=== PATIENT | female | born 1955 | race Caucasian/White ===

== ENCOUNTER 2020-03-14 10:57 | Outpatient (RCR) | payer MEDICARE, SELFPAY | END 2020-03-26 14:24 | disposition other institution (70) | LOC: HO.PT 10:57 | PROVIDERS: PCP Internal Medicine; Visit Provider Internal Medicine | DX: M53.3 Sacrococcygeal disorders, not elsewhere classified (principal) | CPT/HCPCS: 97110; 97530 ==

== ENCOUNTER 2020-03-26 11:44 | Outpatient (REF) | payer MEDICARE, SELFPAY ==
[2020-03-26 12:38] LABS: MANUAL DIFF FLAG NO
[2020-03-26 12:43] LABS: Basophils Absolute Auto 0.1 X10*3/uL (0.0-0.2); Basophils Percent Auto 0.5 % (0-2); Eosinophils Absolute Auto 0.1 X10*3/uL (0.0-0.4); Eosinophils Percent Auto 1.2 % (0-4); Hemoglobin 15.3 g/dl (12.0-16.0); Imm Gran Abs Auto 0.05 X10*3/uL (0.00-0.03); Imm Gran Pct Auto 0.5 % (0.0-0.4); Lymphocytes Percent Auto 21.5 % (20-40); Mean Corpuscular HGB Conc 33.3 g/dl (31.0-35.0); Mean Corpuscular Hemoglobin 30.3 pg (27.0-33.0); Mean Corpuscular Volume 91.1 fL (80-98); Mean Platelet Volume 10.9 fL (9.4-12.3); Monocytes Absolute Auto 0.8 X10*3/uL (0.1-1.2); Monocytes Percent Auto 8.7 % (2-11); Neutrophils Absolute Auto 6.4 X10*3/uL (2.0-8.3); Neutrophils Percent Auto 67.6 % (45-73); Platelet Count 246 X10*3/uL (160-400); Red Blood Count 5.05 X10*6/uL (4.20-5.50); Red Cell Distribution Width 13.2 % (11.0-16.0); White Blood Count 9.4 X10*3/uL (4.8-10.8)
[2020-03-26 12:57] LABS: Glucose Urine UA NEG (NEG); Leukocyte Esterase Urine NEG (NEG); Nitrite Urine NEG (NEG); Urine Blood NEG (NEG); Urine Ketones NEG (NEG); Urine Protein TRACE MG/DL (NEG-TRACE)
[2020-03-26 13:00] LABS: Appearance Urine CLEAR; Color Urine YELLOW; UACC Culture Trigger NO
[2020-03-26 13:16] LABS: Alanine Aminotransferase 34 U/L (0-31); Albumin Level 4.3 g/dL (3.5-5.0); Alkaline Phosphatase 62 U/L (39-117); Anion Gap 15 (12-20); Aspartate Amino Transferase 22 U/L (5-31); Bilirubin Total 0.9 mg/dL (0.0-1.0); Blood Urea Nitrogen 15 mg/dL (9-16); C Reactive Protein 13.52 mg/dL (< or = 0.50); Calcium 9.6 mg/dL (8.4-10.2); Carbon Dioxide 28 mmol/L (22-29); Chloride 101 mmol/L (96-108); Estimated Glomerular Filt Rate > 60; Glucose Random 101 mg/dL (60-115); Potassium 4.9 mmol/l (3.3-5.1); Sodium 139 mmol/L (135-145); Total Protein 7.1 g/dL (6.5-8.0)
== END 2020-03-26 11:45 | disposition home or self-care (01) ==
LOC: HO.LAB 11:44
PROVIDERS: PCP Internal Medicine; Visit Provider Internal Medicine
DX: K57.90 Diverticulosis of intestine, part unspecified, without perforation or abscess without bleeding (principal); R30.0 Dysuria
CPT/HCPCS: 36415; 80053; 81003; 82550; 85025; 86140; 87086

== ENCOUNTER 2020-03-28 07:33 | Outpatient (REF) | payer MEDICARE, SELFPAY ==
--- NOTE | 2020-03-28 07:37 | CT_ITS ---
EXAMINATION: CT ABDOMEN AND PELVIS WITHOUT CONTRAST CLINICAL INFORMATION: Abdominal pain, elevated CRP. COMPARISON: CT abdomen and pelvis 01/11/2020 TECHNIQUE: Multidetector volumetric imaging was performed from the superior aspect of the liver through the pubic symphysis. Sagittal and coronal reformatted images were obtained on the technologist's workstation. This CT examination was performed using dose optimization techniques as appropriate, variously including the following: *Automated exposure control *Adjustment of mA and/or kV according to patient size (this includes techniques or standardized protocols for targeted exams where dose is matched to indication/reason for exam; i.e. extremities or head) *Use of iterative reconstruction technique DLP: 903 mGy-cm FINDINGS: LUNG BASES: There is minimal atelectatic changes in the lingula. The heart size is normal. There are pacing electrodes in the right atrium and right ventricle. LIVER, GALLBLADDER AND BILIARY TREE: The liver is normal in size, shape and attenuation. No focal hepatic lesion or biliary ductal dilatation is present. The gallbladder has been surgically removed. There is no proximal bowel obstruction. PANCREAS: Unremarkable. SPLEEN: Unremarkable. ADRENAL GLANDS: Unremarkable. KIDNEYS AND URETERS: The kidneys are normal in size, shape and attenuation. A 2 mm nonobstructive calculi is seen in lower pole right kidney. No additional radiopaque calculi, caliectasis or hydronephrosis seen. No perinephric stranding. There is an exophytic cyst upper pole left kidney measuring 2.7 x 3.2 cm. A 1.2 cm cortical cyst lower pole right kidney is noted. BLADDER: Unremarkable. GASTROINTESTINAL TRACT: There is scattered sigmoid and rest of colon diverticulosis with mild pericolic fat stranding around the sigmoid colon suggestive of diverticulitis. There is minimal mural thickening of the sigmoid colon. There is no drainable abscess or free air. There is no free fluid. The small bowel loops are normal caliber. Appendix is not visualized ABDOMINAL WALL: No significant hernia is appreciated. LYMPH NODES: Normal. VASCULAR: Unremarkable. PELVIC VISCERA: The uterus is anteverted and appears unremarkable. There is no free air or free fluid. OSSEOUS STRUCTURES: There is mild ventral spondylosis lower dorsal spine and lumbar spine. No lytic or sclerotic process seen. IMPRESSION: Scattered colonic diverticulosis with sigmoid diverticulitis. No drainable abscess, free air or bowel obstruction. Punctate nonobstructive 2 mm radiopaque calculi lower pole right kidney and bilateral renal cysts.
== END 2020-03-28 07:34 | disposition home or self-care (01) ==
LOC: HO.CT 07:33
PROVIDERS: PCP Internal Medicine; Visit Provider Internal Medicine
DX: R79.82 Elevated C-reactive protein (CRP) (principal); R10.9 Unspecified abdominal pain
CPT/HCPCS: 74176

== ENCOUNTER 2020-04-24 17:13 | Outpatient (REF) | payer MEDICARE, SELFPAY ==
[2020-04-24 17:53] LABS: MANUAL DIFF FLAG NO
[2020-04-24 18:03] LABS: Basophils Absolute Auto 0.1 X10*3/uL (0.0-0.2); Basophils Percent Auto 0.7 % (0-2); Eosinophils Absolute Auto 0.1 X10*3/uL (0.0-0.4); Eosinophils Percent Auto 1.6 % (0-4); Hematocrit 44.6 % (37-47); Hemoglobin 14.7 g/dl (12.0-16.0); Imm Gran Abs Auto 0.04 X10*3/uL (0.00-0.03); Imm Gran Pct Auto 0.5 % (0.0-0.4); Lymphocytes Absolute Auto 2.1 X10*3/uL (1.2-4.9); Lymphocytes Percent Auto 27.6 % (20-40); Mean Corpuscular Hemoglobin 29.6 pg (27.0-33.0); Mean Corpuscular Volume 89.9 fL (80-98); Mean Platelet Volume 10.7 fL (9.4-12.3); Monocytes Absolute Auto 0.7 X10*3/uL (0.1-1.2); Monocytes Percent Auto 8.9 % (2-11); Neutrophils Absolute Auto 4.6 X10*3/uL (2.0-8.3); Neutrophils Percent Auto 60.7 % (45-73); Platelet Count 232 X10*3/uL (160-400); Red Blood Count 4.96 X10*6/uL (4.20-5.50); Red Cell Distribution Width 13.2 % (11.0-16.0); White Blood Count 7.5 X10*3/uL (4.8-10.8)
[2020-04-24 18:06] LABS: Glucose Urine UA NEG (NEG); Leukocyte Esterase Urine TRACE (NEG); Nitrite Urine NEG (NEG); Urine Blood NEG (NEG); Urine Ketones NEG (NEG); Urine Protein NEG (NEG-TRACE)
[2020-04-24 18:09] LABS: Appearance Urine CLEAR; Color Urine YELLOW
[2020-04-24 18:22] LABS: Bacteria Urine 1+ /LPF; RBC Urine 0 /HPF (0); Squamous Epithelial Cell Urine 1+ /LPF; WBC Urine 0-2 /HPF (0-4)
[2020-04-24 18:23] LABS: Alanine Aminotransferase 57 U/L (0-31); Albumin Level 4.5 g/dL (3.5-5.0); Alkaline Phosphatase 57 U/L (39-117); Anion Gap 13 (12-20); Aspartate Amino Transferase 44 U/L (5-31); Blood Urea Nitrogen 17 mg/dL (9-16); C Reactive Protein 0.28 mg/dL (< or = 0.50); Calcium 9.6 mg/dL (8.4-10.2); Carbon Dioxide 28 mmol/L (22-29); Chloride 102 mmol/L (96-108); Estimated Glomerular Filt Rate > 60; Glucose Random 86 mg/dL (60-115); Potassium 4.3 mmol/l (3.3-5.1); Sodium 139 mmol/L (135-145)
== END 2020-04-24 17:14 | disposition home or self-care (01) ==
LOC: HO.LAB 17:13
PROVIDERS: Visit Provider Internal Medicine
DX: R10.9 Unspecified abdominal pain (principal); I10 Essential (primary) hypertension
CPT/HCPCS: 36415; 80053; 81001; 85025; 86140; 87086

== ENCOUNTER → 2020-09-04 10:27 | Outpatient (BNVA) | payer MEDICARE, SELFPAY | PROVIDERS: PCP Internal Medicine; Visit Provider Internal Medicine Cardiovascular Disease | DX: Z45.018 Encounter for adjustment and management of other part of cardiac pacemaker (principal); R42 Dizziness and giddiness; I10 Essential (primary) hypertension; Z79.899 Other long term (current) drug therapy | CPT/HCPCS: 93280; 99212 ==

== ENCOUNTER → 2020-09-11 09:27 | Outpatient (REF) | payer MEDICARE, SELFPAY ==
--- NOTE | 2020-09-11 09:30 | CA_ITS ---
Transthoracic Echocardiogram Patient (Last, First, Middle): Ruby Moses, Gender: Female Date of : 1955 Age: 65 Procedure Date: 09/11/2020 Procedure Type: Transthoracic Echocardiogram Location: OP Height: 165.1 cm Weight: 95.26 kg BSA: 2.02 m2 Heart Rate: bpm BP: 130 / 80 mmHg Solar Design Engineer: JOSSY Jackson MD: Og Lacy MD Telecommunications Line Mechanic: Og Lacy MD Symptoms: I10 - Essential (primary) hypertension Study Quality: Fair ECG Rhythm: Ventriculary paced rhythm Conclusions: - 1. Normal LV systolic function grade 1 diastolic dysfunction 2. Normal cardiac valvular Doppler 3. Normal RV systolic pressure 4. No pericardial effusion Findings Left Ventricle Normal left ventricular size, thickness, and systolic function. The visually estimated ejection fraction is between 55-60%. There is paradoxical septal motion consistent with a right ventricular pacemaker. Spectral Doppler is indicative of an impaired relaxation filling pattern. E/E prime ratio is <8, consistent with normal filling pressures. Evidence suggests grade I (mild) diastolic dysfunction. Right Ventricle Normal right ventricular cavity size and systolic function. There is a pacemaker wire seen in the right ventricle. Atria The left atrium is likely dilated. Interatrial shunt cannot be excluded. The right atrium is normal in size. A pacemaker wire is identified in the right atrium. Aortic Valve Normal aortic valve structure and function. There is no aortic valve stenosis. There is no aortic valve regurgitation. Mitral Valve There is mild anterior and posterior mitral leaflet thickening. There is trace mitral valve regurgitation. There is no mitral valve stenosis. Pulmonic Valve The pulmonic valve is likely normal. There is trace pulmonic valve regurgitation. Tricuspid Valve Normal tricuspid valve structure. There is mild tricuspid valve regurgitation. The right ventricular systolic pressure is normal. The right ventricular systolic pressure is 23 mmHg. Normal right atrial pressure. There is no evidence of pulmonary hypertension. Great Vessels All visible segments of the aorta are normal in size. The pulmonary artery was not well visualized. Venous The inferior vena cava is normal in size and collapses greater than 50% with inspiration. Pericardium/Pleural There is no evidence of pericardial effusion. Prior Study Comparison No significant change compared to prior study dated: 08/18/2018. Measurements M-Mode Liner Measurements Normals - Women/Men AOV Cusps: 2.00 1.5-2.6 cm/m2 2D Linear Measurements IVSd: 1.06 0.6-0.9/0.6-1.0 cm LVIDd: 3.54 3.9-5.3/4.2-5.9 cm LVIDd Index: 1.75 2.4-3.2/2.2-3.1 cm/m2 LVIDs: 2.64 2.0-3.6 cm LVPWd: 1.05 0.7-1.1 cm Ao Root: 2.40 2.1-3.5 cm LA Diam: 2.90 2.7-3.8/3.0-4.0 cm LAIDs Index: 1.44 1.5-2.3 cm/m2 LV Mass: 141.44 67-162/88-224 g LV Mass Index: 70.02 43-95/49-115 g/m2 LVOT Diam: 2.30 3.0+(-)1.3 cm 2D Systolic Function EF 4C: 63.00 >55% EF 2C: 47.00 >55% EF BiP: 54.80 >55% Mitral Valve MV Pk E: 0.50 MV PK A: 0.92 MV Decel Time: 267.00 E/A: 0.50 E'Lateral: 6.20 E'Medial: 3.81 E/E' Med: 13.20 E/E' Lat: 8.10 PHT: 78.00 MVA PHT: 2.82 Decel Hardeman: 1.88 Aortic Valve AoV Pk Juan Manuel: 1.41 AoV Mn Juan Manuel: 1.06 AoV VTI: 0.31 AoV Pk Grad: 8.00 Aov Mn Grad: 5.00 MULUGETA Cont.VTI: 2.88 LVOT LVOT Pk Juan Manuel: 1.05 LVOT Mn Juan Manuel: 0.71 LVOT VTI: 0.21 LVOT Pk Grad: 4.00 LVOT Mn Grad: 2.00 LVOT Diam: 2.30 LVOT Area: 4.15 Diastolic Function MV Pk E: 0.50 MV Pk A: 0.92 E/A: 0.50 E'Medial: 3.81 E/E' Med: 13.20 E' Laterial: 6.20 E/E' Lat: 8.10 Tricuspid Valve TR Pk Juan Manuel: 2.24 TR Pk Grad: 20.00 RA Press: 3.00 RVSP: 23.00 Great Vessels Aorta Ao Root-2D: 2.40 2.0-3.7 cm Ao Asc: 3.40 2.1-3.4 cm Ao Arch: 2.80 Pulmonary Valve PV Pk Juan Manuel: 0.92 Peak PV Grad: 3.00 Updated in Other Vendor System with Status of Final Og Lacy MD electronically signed on 09/11/2020 12:07:26 PM with status of Final
== END ==
LOC: HO.CARD 09:27
PROVIDERS: Visit Provider Internal Medicine Cardiovascular Disease
DX: I10 Essential (primary) hypertension (principal); R42 Dizziness and giddiness; Z95.0 Presence of cardiac pacemaker
CPT/HCPCS: 93306

== ENCOUNTER 2020-10-03 16:20 | Outpatient (REF) | payer MEDICARE, SELFPAY ==
--- NOTE | ~2020-10-03 | US_ITS ---
EXAMINATION: US RETROPERITONEAL LIMITED (RENAL ONLY) CLINICAL INFORMATION: Malignant neoplasm of unspecified kidney. COMPARISON: CT abdomen and pelvis 03/28/2020. Ultrasound abdomen complete 03/17/2019. TECHNIQUE: Real-time imaging of the kidneys. FINDINGS: RIGHT KIDNEY: 10.4 x 5.5 x 4.6 cm (SAG x AP x TRV). The kidney is normal in size, contour, and echogenicity. Renal cortical thickness is normal. There are multiple right renal cyst. There is a 9 x 7 x 8 mm simple cyst in the midpole. There is a 9 x 12 x 8 mm slightly complex cyst with single septation in the upper pole. There is an 8 x 10 x 8 mm simple cyst in the midpole. There is a 12 x 8 x 7 mm complex cyst with single septation in the lower pole. No renal calculi or mass or hydronephrosis. LEFT KIDNEY: 11.8 x 5.2 x 5.7 cm (SAG x AP x TRV). The kidney is normal in size, contour, and echogenicity. Renal cortical thickness is normal. There are 2 left renal cysts. There is a 1.2 x 1.4 x 1.4 cm cyst in the upper pole. There is an adjacent 3.3 x 3 x 3.1 cm slightly complex cyst with single septation in the upper pole. No renal calculi, mass or hydronephrosis. US/US renal BI IMPRESSION: Bilateral renal cysts. No renal mass seen.
== END 2020-10-03 16:21 | disposition home or self-care (01) ==
LOC: HO.US 16:20
PROVIDERS: PCP Internal Medicine; Visit Provider Urology
DX: C64.9 Malignant neoplasm of unspecified kidney, except renal pelvis (principal)
CPT/HCPCS: 76775

== ENCOUNTER → 2020-10-31 09:49 | Outpatient (BNVA) | payer MEDICARE, SELFPAY | PROVIDERS: PCP Internal Medicine; Visit Provider Urology | DX: C64.9 Malignant neoplasm of unspecified kidney, except renal pelvis (principal) | CPT/HCPCS: Q3014 ==

== ENCOUNTER 2020-12-19 07:16 | Day surgery (SDC) | payer MEDICARE, SELFPAY ==
[2020-12-14 13:49] VITALS: BMI 35.2
--- NOTE | 2020-12-18 09:34 | HO.ANESPROP2 ---
Documented by User: Leslye Ndiaye 12/18/20 09:36 HPI - Anesthesia Eval Consult details Narrative: 65yo F for Upper Endoscopy and Colonoscopy Pacer in situ for CHB PMFSH Active Problems Active Problems: All Active Problems (Updated 12/14/20 @ 13:54 by Carolina Redman) Lightheadedness (Acute) Renal carcinoma (Acute) HTN (hypertension) (Acute) Cardiac pacemaker in situ (Acute) Past Medical History Medical History Arthritis Cardiac pacemaker in situ Complete heart block GERD (gastroesophageal reflux disease) Hiatal hernia History of diverticulitis HTN (hypertension) Family History Family History Father No problems noted. Mother No problems noted. Surgical History Surgical History History of esophagogastroduodenoscopy (EGD) History of excision of Zenker's diverticulum History of kidney surgery History of permanent cardiac pacemaker placement Hx of appendectomy Hx of blepharoplasty Hx of cardiac cath Hx of cholecystectomy Hx of colonoscopy Social History Social History Patient Tobacco Use Status: Never used Tobacco Use of substances other than those prescribed or required for medical reasons: No Are you DNR?: No Advance Directives: No Advance Directives Information Provided: Yes Advance Directives Date on File: 03/14/20 Meds Allergies Allergy/AdvReac Type Severity Reaction Status Date / Time adhesive tape [Adhesive Tape] Allergy Intermediate RASH/BLISTE Verified 12/19/20 07:30 RS doxycycline [Doxycycline] Allergy Intermediate RASH/ITCH Verified 12/19/20 07:30 Statins Support Allergy Intermediate leg Uncoded 12/19/20 07:30 cramping Home Medications Medication Instructions Recorded Confirmed Last Taken Type aspirin 81 mg tablet,delayed 81 mg PO DAILY 09/04/20 12/14/20 12/12/20 14:00 History release atenolol 100 mg tablet 100 mg PO DAILY 09/04/20 12/14/20 12/19/20 06:30 History cholecalciferol (vitamin D3) 25 25 mcg PO DAILY 09/04/20 12/14/20 Unknown History mcg (1,000 unit) capsule lisinopril 20 mg tablet 20 mg PO DAILY 09/04/20 12/14/20 12/19/20 06:30 History omeprazole 20 mg capsule,delayed 20 mg PO DAILY 09/04/20 12/14/20 Unknown History release vitamin B complex 1 tab PO DAILY 09/04/20 12/14/20 Unknown History Exam Exam Date and Time: December 18, 2020 0934 Height,Weight and Vital Signs: Height 5 ft 5.5 in Weight 97.522 kg Narrative Narrative: Echo 09/2020 Conclusions: - 1. Normal LV systolic function grade 1 diastolic dysfunction 2. Normal cardiac valvular Doppler 3. Normal RV systolic pressure 4. No pericardial effusion Pacer Interr 08/2020 Dual-chamber Medtronic pacemaker in place. Programmed in DDDR at 60 beats per minute. Atrial pacing 51% of the time. Ventricular pacing 100% of the time. Atrial pacing thresholds excellent and reprogrammed to enhance battery life. Ventricular pacing thresholds are adequate and reprogrammed to provide adequate safety. Pacing lead impedance is stable. Battery life is at about 3 and half years Assessment and Plan Assessment Anesthesia Assessment: Chart Reviewed Documented by User: Grady Buchanan 12/19/20 09:00 [facility] Past Medical History Medical History Arthritis Cardiac pacemaker in situ Complete heart block GERD (gastroesophageal reflux disease) Hiatal hernia History of diverticulitis HTN (hypertension) Family History Family History Father No problems noted. Mother No problems noted. Surgical History Surgical History History of esophagogastroduodenoscopy (EGD) History of excision of Zenker's diverticulum History of kidney surgery History of permanent cardiac pacemaker placement Hx of appendectomy Hx of blepharoplasty Hx of cardiac cath Hx of cholecystectomy Hx of colonoscopy Social History Social History Patient Tobacco Use Status: Never used Tobacco Use of substances other than those prescribed or required for medical reasons: No Are you DNR?: No Advance Directives: No Advance Directives Information Provided: Yes Advance Directives Date on File: 03/14/20 Meds Allergies Allergy/AdvReac Type Severity Reaction Status Date / Time adhesive tape [Adhesive Tape] Allergy Intermediate RASH/BLISTE Verified 12/19/20 07:30 RS doxycycline [Doxycycline] Allergy Intermediate RASH/ITCH Verified 12/19/20 07:30 Statins Support Allergy Intermediate leg Uncoded 12/19/20 07:30 cramping Home Medications Medication Instructions Recorded Confirmed Last Taken Type aspirin 81 mg tablet,delayed 81 mg PO DAILY 09/04/20 12/14/20 12/12/20 14:00 History release atenolol 100 mg tablet 100 mg PO DAILY 09/04/20 12/14/20 12/19/20 06:30 History cholecalciferol (vitamin D3) 25 25 mcg PO DAILY 09/04/20 12/14/20 Unknown History mcg (1,000 unit) capsule lisinopril 20 mg tablet 20 mg PO DAILY 09/04/20 12/14/20 12/19/20 06:30 History omeprazole 20 mg capsule,delayed 20 mg PO DAILY 09/04/20 12/14/20 Unknown History release vitamin B complex 1 tab PO DAILY 09/04/20 12/14/20 Unknown History Exam Airway Mallampati Class: III TM Dist: >3cm Neck ROM: Full Loose/Missing/Broken Teeth: No Heart: [id number] Lungs: cta b/l Assessment and Plan Assessment Anesthesia Assessment: Anesthesia Plan Discussed, PAT Visit and Chart Reviewed Final Anesthetic Review NPO: Yes ASA Class: III Final Preanesthetic Review: No Changes in Pt Med Stat, Meds/Allgs Chart Reviewed, Consent Obtained/Reviewed and Anes Risks/Benef Reviewed Patient Risk: Intermediate Procedure Risk: Low Assessment/Block/Sedation in SS: Assess/Block/Sedation-SS Anesthetic Plan Anesthetic Plan: MAC: and Agree w/ Assess. and Plan Disposition: Standard PACU
[2020-12-19 07:49] VITALS: BP 144/93; PULSE 70; RESP 18; TEMP 36.1; O2SAT 96
[2020-12-19] MEDS: Lactated Ringers 1,000 ML 100 ML IVCONT (08:06)
[2020-12-19 09:55] VITALS: BP 110/77; PULSE 69; RESP 14; TEMP 36.2; O2SAT 98
--- NOTE | 2020-12-19 09:58 | PM.OP ---
Brief Operative Note Date of Service: 12/19/20 Pre-op diagnosis: GERD, Screening Post-op diagnosis: other (Hiatal hernia, Diverticulosis) Procedure: EGD, Colonoscopy to the cecum Surgeon: Vito Maldonado Anesthesia: MAC Was an Outpatient Physical Therapist Assistant used for this Procedure?: No Estimated blood loss (mL): 0 Pathology: none sent Condition: stable Disposition: PACU
[2020-12-19 10:10] VITALS: BP 133/78; PULSE 65; RESP 16; TEMP 36.2; O2SAT 98
--- NOTE | 2020-12-19 10:22 | OP_ITS ---
SURGEON: Vito Maldonado MD INDICATIONS: The patient presents for evaluation of gastroesophageal reflux, personal history of tubular adenoma of the colon, and colorectal cancer screening. Full consent has been obtained from her for this, including risks of bleeding and perforation. PREOPERATIVE DIAGNOSIS: POSTOPERATIVE DIAGNOSIS: PROCEDURE PERFORMED: Esophagogastroduodenoscopy, and colonoscopy to cecum. ESTIMATED BLOOD LOSS: COMPLICATIONS: ANESTHESIA: Monitored anesthesia care. ASSISTANTS: SPECIMENS: PREOPERATIVE DIAGNOSES: Gastroesophageal reflux, personal history of tubular adenoma of the colon, and colorectal cancer screening. POSTOPERATIVE DIAGNOSES: Gastroesophageal reflux, personal history of tubular adenoma of the colon, and colorectal cancer screening, small hiatal hernia, sigmoid diverticulosis, internal hemorrhoids. DESCRIPTION OF PROCEDURE: The patient was placed in the left lateral decubitus position. The Olympus video gastroscope was passed in the posterior oropharynx and upper esophagus under direct vision. The scope was passed slowly into the distal esophagus. The gastroesophageal junction appeared normal at 38 cm. There was no sign of any esophagitis, Fletcher's esophagus, nor stricture. The scope entered into the stomach. There was a small hiatal hernia. The scope was advanced to the pylorus and the duodenum was cannulated to the descending portion. The duodenum including the bulb appeared normal without mass or ulceration. The scope was withdrawn back into the stomach. The gastric antrum and body appeared normal with good peristalsis. The scope was retroflexed visualizing the proximal stomach carefully which appeared normal, without any sign of mass or ulceration. Scope was straightened out and withdrawn back into the esophagus. The esophageal mucosa appeared normal. The scope was withdrawn from the patient. She was turned around for colonoscopy. The digital rectal exam revealed no abnormalities. The Olympus video pediatric colonoscope was entered into the rectum and advanced to the cecum. Once in the cecum, I did identify normal-appearing cecal pouch with appendiceal orifice and a normal-appearing ileocecal valve. There was transillumination of light deep in the right lower quadrant. The entire cecum and ileocecal valve appeared normal. The scope was slowly withdrawn assessing all mucosal surfaces carefully. Preparation was excellent. I did not visualize any sign of polyps, colitis, nor angiodysplasia. There was a mild amount of sigmoid diverticulosis. In the rectum, scope was retroflexed visualizing internal hemorrhoids, but no other pathology. The rectal mucosa appeared normal. The scope was straightened out and withdrawn from the patient. She tolerated both procedures well and was returned to recovery area in stable condition. IMPRESSION: 1. Small hiatal hernia, otherwise normal upper endoscopy. 2. Mild sigmoid diverticulosis. 3. Internal hemorrhoids. PLAN: The patient should have a repeat colonoscopy in 5 years for further screening. She will continue her omeprazole once or twice a day for symptomatic relief of reflux. She will otherwise see me on a p.r.n. basis. She was advised to resume her aspirin today. MD JOYCE Mcelroy/TASIA / [phone]
== END 2020-12-19 10:33 | disposition home or self-care (01) ==
PROVIDERS: PCP Internal Medicine; Visit Provider Internal Medicine
PROC: (CPT 43235; principal; 2020-12-19 08:30)
DX: Z12.11 Encounter for screening for malignant neoplasm of colon (principal); Z86.010 Personal history of colon polyps; K57.30 Diverticulosis of large intestine without perforation or abscess without bleeding; K64.8 Other hemorrhoids; K21.9 Gastro-esophageal reflux disease without esophagitis; K44.9 Diaphragmatic hernia without obstruction or gangrene; I10 Essential (primary) hypertension; Z95.0 Presence of cardiac pacemaker; Z79.82 Long term (current) use of aspirin; Z79.899 Other long term (current) drug therapy; Z88.8 Allergy status to other drugs, medicaments and biological substances; Z87.19 Personal history of other diseases of the digestive system; Z90.49 Acquired absence of other specified parts of digestive tract
CPT/HCPCS: 43235; G0105; J2370

== ENCOUNTER 2021-01-21 10:22 | Outpatient (REF) | payer MEDICARE, SELFPAY ==
[2021-01-21 13:00] LABS: MANUAL DIFF FLAG NO
[2021-01-21 13:13] LABS: Basophils Absolute Auto 0.1 X10*3/uL (0.0-0.2); Basophils Percent Auto 0.8 % (0-2); Eosinophils Absolute Auto 0.1 X10*3/uL (0.0-0.4); Eosinophils Percent Auto 1.4 % (0-4); Hematocrit 45.3 % (37-47); Hemoglobin 14.8 g/dl (12.0-16.0); Imm Gran Abs Auto 0.03 X10*3/uL (0.00-0.03); Imm Gran Pct Auto 0.5 % (0.0-0.4); Lymphocytes Percent Auto 30.2 % (20-40); Mean Corpuscular HGB Conc 32.7 g/dl (31.0-35.0); Mean Corpuscular Hemoglobin 29.4 pg (27.0-33.0); Mean Corpuscular Volume 90.1 fL (80-98); Mean Platelet Volume 11.6 fL (9.4-12.3); Monocytes Absolute Auto 0.5 X10*3/uL (0.1-1.2); Monocytes Percent Auto 6.9 % (2-11); Neutrophils Percent Auto 60.2 % (45-73); Platelet Count 229 X10*3/uL (160-400); Red Blood Count 5.03 X10*6/uL (4.20-5.50); Red Cell Distribution Width 13.2 % (11.0-16.0); White Blood Count 6.6 X10*3/uL (4.8-10.8)
[2021-01-21 13:40] LABS: Alanine Aminotransferase 26 U/L (0-31); Albumin Level 4.3 g/dL (3.5-5.0); Alkaline Phosphatase 66 U/L (39-117); Anion Gap 17 (12-20); Aspartate Amino Transferase 18 U/L (5-31); Bilirubin Total 0.8 mg/dL (0.0-1.0); Blood Urea Nitrogen 24 mg/dL (9-16); Calcium 9.2 mg/dL (8.4-10.2); Carbon Dioxide 20 mmol/L (22-29); Chloride 107 mmol/L (96-108); Estimated Glomerular Filt Rate > 60; Glucose Random 135 mg/dL (60-115); Sodium 140 mmol/L (135-145); Total Protein 6.9 g/dL (6.5-8.0)
[2021-01-21 14:16] LABS: Glucose Urine UA NEG (NEG); Leukocyte Esterase Urine NEG (NEG); Nitrite Urine NEG (NEG); PH 5.5 (5.0-8.0); Specific Gravity - Urine >= 1.030 (1.005-1.025); Urine Blood NEG (NEG); Urine Ketones NEG (NEG); Urine Protein NEG (NEG-TRACE)
[2021-01-21 14:19] LABS: Appearance Urine TURBID; Color Urine YELLOW
== END 2021-01-21 10:23 | disposition home or self-care (01) ==
LOC: HO.10HDL 10:22
PROVIDERS: PCP Internal Medicine; Visit Provider Internal Medicine
DX: I10 Essential (primary) hypertension (principal); K21.9 Gastro-esophageal reflux disease without esophagitis; R30.0 Dysuria; R79.89 Other specified abnormal findings of blood chemistry
CPT/HCPCS: 36415; 80053; 81003; 85025; 87086

== ENCOUNTER → 2021-03-05 10:22 | Outpatient (BNVA) | payer MEDICARE, SELFPAY | PROVIDERS: PCP Internal Medicine; Visit Provider Internal Medicine Cardiovascular Disease | DX: Z45.018 Encounter for adjustment and management of other part of cardiac pacemaker (principal); I10 Essential (primary) hypertension | CPT/HCPCS: 93005; 99212 ==

== ENCOUNTER 2021-04-22 11:21 | Outpatient (REF) | payer MEDICARE, SELFPAY ==
[2021-04-22 13:46] LABS: MANUAL DIFF FLAG NO
[2021-04-22 13:54] LABS: Basophils Absolute Auto 0.1 X10*3/uL (0.0-0.2); Basophils Percent Auto 0.8 % (0-2); Eosinophils Absolute Auto 0.1 X10*3/uL (0.0-0.4); Hematocrit 45.3 % (37.0-47.0); Hemoglobin 14.7 g/dl (12.0-16.0); Imm Gran Abs Auto 0.03 X10*3/uL (0.00-0.03); Imm Gran Pct Auto 0.5 % (0.0-0.4); Lymphocytes Percent Auto 30.8 % (20-40); Mean Corpuscular HGB Conc 32.5 g/dl (31.0-35.0); Mean Corpuscular Hemoglobin 29.6 pg (27.0-33.0); Mean Corpuscular Volume 91.1 fL (80.0-98.0); Mean Platelet Volume 11.2 fL (9.4-12.3); Monocytes Absolute Auto 0.6 X10*3/uL (0.1-1.2); Monocytes Percent Auto 8.6 % (2-11); Neutrophils Absolute Auto 3.8 x10*3/uL (2.0-8.3); Neutrophils Percent Auto 57.3 % (45-73); Platelet Count 241 X10*3/uL (160-400); Red Blood Count 4.97 X10*6/uL (4.20-5.50); Red Cell Distribution Width 13.2 % (11.0-16.0); White Blood Count 6.6 X10*3/uL (4.8-10.8)
[2021-04-22 14:03] LABS: Estimated Average Glucose 114 mg/dL; Hemoglobin A1c % 5.6 %
[2021-04-22 14:08] LABS: Appearance Urine HAZY; Color Urine YELLOW; Glucose Urine UA NEG (NEG); Leukocyte Esterase Urine 1+ (NEG); Nitrite Urine NEG (NEG); PH 5.5 (5.0-8.0); Specific Gravity - Urine >= 1.030 (1.005-1.025); Urine Blood NEG (NEG); Urine Ketones NEG (NEG); Urine Protein NEG (NEG-TRACE)
[2021-04-22 14:17] LABS: Alanine Aminotransferase 29 U/L (0-31); Albumin Level 4.2 g/dL (3.5-5.0); Alkaline Phosphatase 52 U/L (39-117); Anion Gap 15 (12-20); Aspartate Amino Transferase 21 U/L (5-31); Bilirubin Total 1.2 mg/dL (0.0-1.0); Blood Urea Nitrogen 25 mg/dL (9-16); Carbon Dioxide 25 mmol/L (22-29); Chloride 106 mmol/L (96-108); Cholesterol 202 mg/dL; Estimated Glomerular Filt Rate > 60; Glucose Fasting 98 mg/dL (60-99); HDL Cholesterol 37 mg/dL; LDL Cholesterol Calculated 128 mg/dl; Potassium 4.3 mmol/L (3.3-5.1); Sodium 142 mmol/L (135-145); Total Protein 6.7 g/dL (6.5-8.0); Triglycerides 187 mg/dL
[2021-04-22 14:27] LABS: Creatinine Urine 211.58 mg/dL; Microalbum/Creatinine Ratio Ur 4.7 ug/mg cr
[2021-04-22 14:30] LABS: Bacteria Urine TRACE /LPF; RBC Urine 0-2 /HPF (0); Squamous Epithelial Cell Urine 2+ /LPF
[2021-04-22 14:38] LABS: Thyroid Stimulating Hormone 0.86 uIU/mL (0.32-4.0)
== END 2021-04-22 11:22 | disposition home or self-care (01) ==
LOC: HO.10HDL 11:21
PROVIDERS: Visit Provider Internal Medicine
DX: I10 Essential (primary) hypertension (principal); R73.03 Prediabetes; E78.00 Pure hypercholesterolemia, unspecified; K21.9 Gastro-esophageal reflux disease without esophagitis
CPT/HCPCS: 36415; 80053; 80061; 81001; 81003; 82043; 83036; 84443; 85025

== ENCOUNTER 2021-04-29 14:20 | Outpatient (REF) | payer MEDICARE, SELFPAY ==
--- NOTE | ~2021-04-29 | XR_ITS ---
EXAMINATION: XR ABDOMEN KUB CLINICAL INDICATION: C64.9 - Malignant neoplasm of unspecified kidney COMPARISON: Renal ultrasound 10/03/2020, CT abdomen 03/28/2020 TECHNIQUE: AP x3 views of the abdomen. FINDINGS: There is scattered gas in the bowel of normal caliber. Surgical clips right upper quadrant are consistent with prior cholecystectomy. There is a bipolar pacemaker. The lung bases are clear. There are no visible urinary tract calculi on plain film. There is spurring in the lumbar spine again noted. XR/XR KUB IMPRESSION: Unremarkable examination.
== END 2021-04-29 14:21 | disposition home or self-care (01) ==
LOC: HO.XRAY 14:20
PROVIDERS: PCP Internal Medicine; Visit Provider Urology
DX: C64.9 Malignant neoplasm of unspecified kidney, except renal pelvis (principal)
CPT/HCPCS: 74018

== ENCOUNTER → 2021-05-07 10:10 | Outpatient (BNVA) | payer MEDICARE, SELFPAY | PROVIDERS: PCP Internal Medicine; Visit Provider Urology | DX: Z13.89 Encounter for screening for other disorder (principal) | CPT/HCPCS: Q3014 ==

== ENCOUNTER 2021-08-06 09:46 | Outpatient (REF) | payer MEDICARE, SELFPAY ==
--- NOTE | ~2021-08-06 | XR_ITS ---
EXAMINATION: XR SHOULDER , LEFT CLINICAL INFORMATION: Pain COMPARISON: None available at the time of this dictation. TECHNIQUE: AP external rotation, Grashey, scapular Y, and axillary views of the shoulder. FINDINGS: BONES: There is no fracture or dislocation, no osteolytic or osteoblastic lesion. JOINTS: Glenohumeral joint is properly positioned. There is mild degenerative osteoarthritis of the acromioclavicular joint. SOFT TISSUE AND INCLUDED LUNG: Small soft tissue calcification around the humeral head suggesting possible calcific tendinosis. XR/XR shoulder LT min 2V IMPRESSION: Soft tissue calcifications superior to the humeral head suggesting calcific tendinosis. DJD AC joint.
[2021-08-06 11:00] LABS: MANUAL DIFF FLAG NO
[2021-08-06 11:51] LABS: Basophils Absolute Auto 0.1 X10*3/uL (0.0-0.2); Basophils Percent Auto 0.8 % (0-2); Eosinophils Absolute Auto 0.1 X10*3/uL (0.0-0.4); Eosinophils Percent Auto 1.1 % (0-4); Hematocrit 44.5 % (37.0-47.0); Hemoglobin 14.6 g/dl (12.0-16.0); Imm Gran Abs Auto 0.03 X10*3/uL (0.00-0.03); Imm Gran Pct Auto 0.4 % (0.0-0.4); Lymphocytes Absolute Auto 2.3 X10*3/uL (1.2-4.9); Mean Corpuscular HGB Conc 32.8 g/dl (31.0-35.0); Mean Corpuscular Hemoglobin 29.9 pg (27.0-33.0); Mean Corpuscular Volume 91.2 fL (80.0-98.0); Monocytes Absolute Auto 0.6 X10*3/uL (0.1-1.2); Monocytes Percent Auto 8.9 % (2-11); Neutrophils Absolute Auto 3.9 x10*3/uL (2.0-8.3); Neutrophils Percent Auto 55.8 % (45-73); Platelet Count 224 X10*3/uL (160-400); Red Blood Count 4.88 X10*6/uL (4.20-5.50); Red Cell Distribution Width 13.4 % (11.0-16.0); White Blood Count 7.1 X10*3/uL (4.8-10.8)
[2021-08-06 11:56] LABS: Estimated Average Glucose 120 mg/dL; Hemoglobin A1c % 5.8 %
[2021-08-06 12:49] LABS: Alanine Aminotransferase 40 U/L (0-31); Albumin Level 4.3 g/dL (3.5-5.0); Alkaline Phosphatase 52 U/L (39-117); Anion Gap 13 (12-20); Aspartate Amino Transferase 25 U/L (5-31); Bilirubin Total 1.1 mg/dL (0.0-1.0); Blood Urea Nitrogen 27 mg/dL (9-16); Calcium 9.9 mg/dL (8.4-10.2); Carbon Dioxide 27 mmol/L (22-29); Chloride 104 mmol/L (96-108); Estimated Glomerular Filt Rate > 60; Glucose Random 102 mg/dL (60-115); Potassium 4.7 mmol/L (3.3-5.1); Sodium 139 mmol/L (135-145); Total Protein 6.8 g/dL (6.5-8.0)
== END 2021-08-06 09:47 | disposition home or self-care (01) ==
LOC: HO.XRAY 09:46
PROVIDERS: PCP Internal Medicine; Visit Provider Internal Medicine
DX: M25.512 Pain in left shoulder (principal); I10 Essential (primary) hypertension; K21.9 Gastro-esophageal reflux disease without esophagitis; R73.01 Impaired fasting glucose
CPT/HCPCS: 36415; 73030; 80053; 83036; 85025

== ENCOUNTER → 2021-08-26 10:09 | Outpatient (BNVA) | payer MEDICARE, SELFPAY | PROVIDERS: PCP Internal Medicine; Referring Provider Internal Medicine; Visit Provider Internal Medicine Cardiovascular Disease | DX: R07.89 Other chest pain (principal); Z95.0 Presence of cardiac pacemaker | CPT/HCPCS: 99212 ==

== ENCOUNTER 2021-11-08 11:15 | Outpatient (REF) | payer MEDICARE, SELFPAY ==
--- NOTE | ~2021-11-08 | US_ITS ---
EXAMINATION: US RETROPERITONEAL LIMITED (RENAL ONLY) CLINICAL INFORMATION: Calculus of kidney. COMPARISON: X-ray KUB 04/29/2021. Renal ultrasound 10/03/2020. CT abdomen and pelvis 03/28/2020. Ultrasound abdomen complete 03/17/2019. TECHNIQUE: Real-time imaging of the kidneys. FINDINGS: RIGHT KIDNEY: 11.3 x 5.5 x 7.9 cm (SAG x AP x TRV). The kidney is normal in size, contour, and echogenicity. Renal cortical thickness is normal. No renal calculi or hydronephrosis. There are 3 right renal cysts. There is a minimally complex 1.9 x 1.9 x 1.6 cm cyst in the lower pole with several septations and a 1.5 x 1.9 x 1.2 cm cyst in the upper pole with septation. There is a 1 cm simple cyst in the midpole. LEFT KIDNEY: 11.5 x 5.8 x 5.3 cm (SAG x AP x TRV). The kidney is normal in size, contour, and echogenicity. Renal cortical thickness is normal. No renal calculi or hydronephrosis. There are 2 left renal cysts. There is a 2 cm simple cyst in the upper pole. There is a 3.7 x 3.2 x 3.9 cm complex cyst exophytic to the upper pole with several septations. US/US renal BI IMPRESSION: Bilateral renal cysts. No stone seen.
== END 2021-11-08 11:16 | disposition home or self-care (01) ==
LOC: HO.HMGCX 11:15
PROVIDERS: Visit Provider Urology
DX: N20.0 Calculus of kidney (principal)
CPT/HCPCS: 76775

== ENCOUNTER → 2021-11-11 08:10 | Outpatient (REF) | payer MEDICARE, SELFPAY ==
--- NOTE | ~2021-11-11 | NM_ITS ---
Myocardial perfusion study Indication: Chest pain to evaluate for myocardial ischemia Technique: The patient was brought in for a Lexiscan perfusion study on 11/11/2021. Patient performed low-level exercise and was injected 0.4 mg of Lexiscan intravenously. Within a minute of injection, 25 mCi of sestamibi was given intravenously. Images were obtained using the SPECT gamma camera interlaced with the gating device. Images were obtained in supine position. Resting perfusion study was performed on 11/12/2021. Patient was administered 25 mCi of sestamibi intravenously at rest. Images were then obtained in supine position. Images obtained with and without CT attenuation. Total DLP 120 mGy-cm. Images were processed with the software and compared side to side in short axis, horizontal long axis and vertical long axis views. Findings: The stress perfusion study showed non attenuated images show mildly reduced uptake in the abdomen the LV myocardium. Remainder of the LV myocardium is normally perfused. Attenuation corrected images show mildly reduced uptake in the distal anterior septum of the LV myocardium.. The gated study shows normal LV systolic function with calculated LVEF of 59%. LV cavity is normal in size. The gated study shows normal systolic wall thickening and contraction of segments. Resting study shows no change in perfusion pattern compared to stress perfusion study. Gating at rest reveals normal systolic wall motion with ejection fraction at 69%. The findings are consistent with no clear reversible defect suggestive of ischemia. Fixed distal septal and distal anterior and apical defect most likely due to baseline.. NM/NM shubham perf SPECT rest & str Impression: 1. Myocardial perfusion imaging study shows likely normal myocardial perfusion 2. Gated LVEF is 59% 3. Transient ischemic dilatation not present EKG is nondiagnostic for ischemia
--- NOTE | 2021-11-11 08:14 | CA_ITS ---
Transthoracic Echocardiogram Patient (Last, First, Middle): Ruby Moses, Gender: Female Date of : 1955 Age: 66 Procedure Date: 11/11/2021 Procedure Type: Transthoracic Echocardiogram Location: OP Height: 167.64 cm Weight: 98.43 kg BSA: 2.07 m2 Heart Rate: 65 bpm BP: 122 / 60 mmHg Painter Plate: SB Referring MD: Og Lacy MD Symptoms: Z95.0 - Presence of cardiac pacemaker Study Quality: Good ECG Rhythm: Sinus Conclusions: - The left ventricular systolic function is normal. The calculated ejection fraction is 59% by biplane method. Findings Left Ventricle Normal left ventricular cavity size. There is mildly increased left ventricular wall thickness. The left ventricular systolic function is normal. The calculated ejection fraction is 59% by biplane method. There is no evidence of regional wall motion abnormalities. E/E prime ratio is >15, consistent with elevated filling pressures. Evidence suggests grade I (mild) diastolic dysfunction. Right Ventricle Normal right ventricular cavity size and systolic function. There is a pacemaker wire seen in the right ventricle. Atria Both atria are normal in size. Aortic Valve There is a normal trileaflet aortic valve. There is no aortic valve stenosis. There is no aortic valve regurgitation. Mitral Valve The mitral valve appears normal. There is trace mitral valve regurgitation. There is no mitral valve stenosis. Pulmonic Valve The pulmonic valve is likely normal. There is trace pulmonic valve regurgitation. Tricuspid Valve There is mild tricuspid valve regurgitation. The pulmonary artery systolic pressure is normal. Great Vessels The asc aorta and aortic arch are normal in size. Venous The inferior vena cava is normal in size and collapses greater than 50% with inspiration. Pericardium/Pleural There is no evidence of pericardial effusion. Prior Study Comparison No significant change compared to prior study dated: 09/11/2020. Measurements 2D Linear Measurements RVIDd: 4.09 IVSd: 1.20 0.6-0.9/0.6-1.0 cm LVIDd: 4.84 3.9-5.3/4.2-5.9 cm LVIDd Index: 2.34 2.4-3.2/2.2-3.1 cm/m2 LVIDs: 2.93 2.0-3.6 cm LVPWd: 1.04 0.7-1.1 cm Ao Root: 2.80 2.1-3.5 cm LA Diam: 4.70 2.7-3.8/3.0-4.0 cm LAIDs Index: 2.27 1.5-2.3 cm/m2 LV Mass: 251.18 67-162/88-224 g LV Mass Index: 121.34 43-95/49-115 g/m2 LVOT Diam: 2.20 3.0+(-)1.3 cm 2D Volumes LA ESV A/L: 24.70 22-52/18-58 ML/M2 RA ESV A/L: 16.80 19-21 ML/M2 2D Systolic Function EF 4C: 57.20 >55% EF 2C: 57.90 >55% EF BiP: 58.60 >55% Mitral Valve MV Pk E: 0.64 MV PK A: 0.78 MV Decel Time: 271.00 E/A: 0.80 E'Lateral: 4.24 E'Medial: 4.13 E/E' Med: 15.40 E/E' Lat: 15.00 PHT: 79.00 MVA PHT: 2.78 Decel Dupage: 2.35 Aortic Valve AoV Pk Juan Manuel: 1.32 AoV Mn Juan Manuel: 0.92 AoV VTI: 0.28 AoV Pk Grad: 7.00 Aov Mn Grad: 4.00 MULUGETA Cont.VTI: 3.51 MULUGETA Method: Continuity Equation LVOT LVOT Pk Juan Manuel: 1.11 LVOT Mn Juan Manuel: 0.80 LVOT VTI: 0.26 LVOT Pk Grad: 5.00 LVOT Mn Grad: 3.00 LVOT Diam: 2.20 LVOT Area: 3.80 Diastolic Function MV Pk E: 0.64 MV Pk A: 0.78 E/A: 0.80 E'Medial: 4.13 E/E' Med: 15.40 E' Laterial: 4.24 E/E' Lat: 15.00 Right Ventricle TAPSE (mm): 18.90 TVS' Juan Manuel: 10.20 Tricuspid Valve TR Pk Juan Manuel: 2.15 TR Pk Grad: 18.00 RA Press: 3.00 RVSP: 25.00 Great Vessels Aorta Ao Root-2D: 2.80 2.0-3.7 cm Sinus of Valsalva: 2.80 2.0-3.5 cm Ao Asc: 3.30 2.1-3.4 cm Ao Arch: 3.10 Ao Desc: 2.50 Updated in Other Vendor System with Status of Final Moris Gongora MD electronically signed on 11/16/2021 1:09:30 PM with status of Final
--- NOTE | 2021-11-11 08:14 | CA_ITS ---
Acquisition Time: 2021-11-11 09:31:54 Total Exercise Time: 00:02:00 Test Indications: Chest Pain Medications: AMLODIPINE ASA ATENOLOL LISINOPRIL OMEPRAZOLE Protocol: LEXISCAN Max HR: 084 BPM 55% of Pred: 152 BPM Max BP: 122/078 mmHG Max Work Load: 1.0 METS Pharmacological stress test with Lexiscan injection, while sitting, without anginal symptoms, without arrythmia, with normotensive response to injection, with nondiagnostic EKG for ischemia. In recovery she reported body fatigue that was treated with Aminophylline 75mg IVP to reverse Lexiscan injection, with resolution of symptom. Nuclear images pending. Test reviewed with Dr Gongora. Referred By: Og Lacy Overread By: ARCELIA SALCEDO
== END ==
LOC: HO.CARD 08:10
PROVIDERS: Visit Provider Internal Medicine Cardiovascular Disease
DX: R07.89 Other chest pain (principal); Z95.0 Presence of cardiac pacemaker
CPT/HCPCS: 78452; 93017; 93306; A9500; J0280; J2785

== ENCOUNTER 2022-01-23 14:45 | Outpatient (REF) | payer MEDICARE, SELFPAY ==
[2022-01-23 15:04] LABS: MANUAL DIFF FLAG NO
[2022-01-23 15:38] LABS: Basophils Percent Auto 0.5 % (0-2); Eosinophils Absolute Auto 0.1 X10*3/uL (0.0-0.4); Eosinophils Percent Auto 0.8 % (0-4); Hematocrit 44.6 % (37.0-47.0); Hemoglobin 14.8 g/dl (12.0-16.0); Imm Gran Abs Auto 0.04 X10*3/uL (0.00-0.03); Imm Gran Pct Auto 0.5 % (0.0-0.4); Lymphocytes Absolute Auto 2.3 X10*3/uL (1.2-4.9); Lymphocytes Percent Auto 29.1 % (20-40); Mean Corpuscular HGB Conc 33.2 g/dl (31.0-35.0); Mean Corpuscular Hemoglobin 29.6 pg (27.0-33.0); Mean Corpuscular Volume 89.2 fL (80.0-98.0); Mean Platelet Volume 11.1 fL (9.4-12.3); Monocytes Absolute Auto 0.7 X10*3/uL (0.1-1.2); Monocytes Percent Auto 9.1 % (2-11); Neutrophils Absolute Auto 4.7 x10*3/uL (2.0-8.3); Platelet Count 249 X10*3/uL (160-400); Red Cell Distribution Width 13.3 % (11.0-16.0); White Blood Count 7.9 X10*3/uL (4.8-10.8)
[2022-01-23 16:01] LABS: Alanine Aminotransferase 43 U/L (0-31); Albumin Level 4.5 g/dL (3.5-5.0); Alkaline Phosphatase 56 U/L (39-117); Anion Gap 14 (12-20); Aspartate Amino Transferase 30 U/L (5-31); Blood Urea Nitrogen 31 mg/dL (9-16); Calcium 9.1 mg/dL (8.4-10.2); Carbon Dioxide 26 mmol/L (22-29); Chloride 105 mmol/L (96-108); Estimated Glomerular Filt Rate 55; Glucose Random 83 mg/dL (60-115); Lipase 13 U/L (8-78); Potassium 4.2 mmol/L (3.3-5.1); Sodium 141 mmol/L (135-145); Total Protein 7.2 g/dL (6.5-8.0)
[2022-01-23 16:04] LABS: Appearance Urine Clear; Color Urine Yellow; Glucose Urine UA Negative (Negative); Leukocyte Esterase Urine Negative (Negative); Nitrite Urine Negative (Negative); PH 5.5 (5.0-8.0); Specific Gravity - Urine >= 1.030 (1.005-1.025); Urine Blood Negative (Negative); Urine Ketones Trace mg/dL (Negative); Urine Protein Negative (Neg-Trace)
== END 2022-01-23 14:46 | disposition home or self-care (01) ==
LOC: HO.LAB 14:45
PROVIDERS: PCP Internal Medicine; Visit Provider Internal Medicine
DX: I10 Essential (primary) hypertension (principal); R63.4 Abnormal weight loss; K21.9 Gastro-esophageal reflux disease without esophagitis; R30.0 Dysuria; R10.9 Unspecified abdominal pain
CPT/HCPCS: 36415; 80053; 81003; 83690; 85025; 87086

== ENCOUNTER → 2022-03-03 10:11 | Outpatient (BNVA) | payer MEDICARE, SELFPAY | PROVIDERS: PCP Internal Medicine; Referring Provider Internal Medicine; Visit Provider Internal Medicine Cardiovascular Disease | DX: I47.2 Ventricular tachycardia (principal); I10 Essential (primary) hypertension; Z95.0 Presence of cardiac pacemaker | CPT/HCPCS: 93005; 93280; 99212 ==

== ENCOUNTER 2022-05-07 09:19 | Outpatient (REF) | payer MEDICARE, SELFPAY ==
--- NOTE | ~2022-05-07 | MM_ITS ---
EXAMINATION: MM SCREENING DIGITAL BREAST TOMOSYNTHESIS, BILATERAL CLINICAL INFORMATION: Screening. Asymptomatic. Benign left stereotactic biopsies 2015 and 2008. The lifetime risk of breast cancer based on the Tyrer-Cuzick Model is 4%. COMPARISON: Mammography: 08/17/2018, 08/10/2017, 01/09/2017, 05/05/2016, 04/21/2016, 04/16/2016 TECHNIQUE: Digital breast tomosynthesis is performed in both the craniocaudal and mediolateral oblique views along with computer-aided detection (CAD). Synthesized 2D images are generated from the tomosynthesis. FINDINGS: There are scattered areas of fibroglandular density (ACR BI-RADS breast composition Category b). Parenchymal pattern is similar to prior exams. There is no architectural abnormality. There is pacemaker generator overlying and partly obscuring left axilla on MLO view. The skin contours are smooth. Left breast has biopsy clip markers anterior upper outer quadrant and more posterior upper outer quadrant, respectively. There is a subcentimeter nodule mid upper outer quadrant approximately 0.7 cm, increased since 2019. A few calcifications are present in this area. Patient will be recalled for additional imaging. Right breast has circumscribed nodule anterior upper outer quadrant approximately 0.7 cm, slightly increased in size from prior studies. Patient will be recalled for additional imaging. MM/MM tomosynthesis screening BI IMPRESSION: Right: -Circumscribed nodule under 1 cm anterior upper outer quadrant, slightly increased in size from prior studies. Left: -Circumscribed nodule under 1 cm mid upper outer quadrant, slightly increased in size along with some superimposed calcification. ASSESSMENT: BI-RADS 0: Incomplete - Need Additional Imaging Evaluation RECOMMENDATION: 1. Additional views of the left breast (magnification CC, magnification ML). 2. Targeted ultrasound bilateral breasts. 3. Radiology department staff will contact the patient for additional imaging. This patient's information was entered into a reminder system with a target due date for their next mammogram.
== END 2022-05-07 09:20 | disposition home or self-care (01) ==
LOC: HO.MAMMO 09:19
PROVIDERS: PCP Internal Medicine; Visit Provider Internal Medicine
DX: Z12.31 Encounter for screening mammogram for malignant neoplasm of breast (principal)
CPT/HCPCS: 77063; 77067

== ENCOUNTER 2022-05-14 08:03 | Outpatient (REF) | payer MEDICARE, SELFPAY ==
[2022-05-14 10:59] LABS: MANUAL DIFF FLAG NO
[2022-05-14 11:03] LABS: Appearance Urine Turbid; Color Urine Yellow; Glucose Urine UA Negative (Negative); Leukocyte Esterase Urine Small (1+) (Negative); Nitrite Urine Negative (Negative); PH 5.5 (5.0-9.0); Specific Gravity - Urine 1.025 (1.005-1.025); UMIC TRIGGER UACC YES; Urine Blood Negative (Negative); Urine Ketones Negative (Negative); Urine Protein Negative (Neg-Trace)
[2022-05-14 11:08] LABS: Basophils Absolute Auto 0.1 X10*3/uL (0.0-0.2); Basophils Percent Auto 0.8 % (0-2); Eosinophils Absolute Auto 0.1 X10*3/uL (0.0-0.4); Eosinophils Percent Auto 1.5 % (0-4); Hematocrit 45.1 % (37.0-47.0); Imm Gran Abs Auto 0.03 X10*3/uL (0.00-0.03); Imm Gran Pct Auto 0.5 % (0.0-0.4); Lymphocytes Absolute Auto 1.8 X10*3/uL (1.2-4.9); Mean Corpuscular HGB Conc 33.3 g/dl (31.0-35.0); Mean Corpuscular Hemoglobin 29.6 pg (27.0-33.0); Mean Corpuscular Volume 89.1 fL (80.0-98.0); Mean Platelet Volume 11.1 fL (9.4-12.3); Monocytes Absolute Auto 0.5 X10*3/uL (0.1-1.2); Monocytes Percent Auto 8.4 % (2-11); Neutrophils Absolute Auto 3.6 x10*3/uL (2.0-8.3); Neutrophils Percent Auto 59.8 % (45-73); Platelet Count 216 X10*3/uL (160-400); Red Blood Count 5.06 X10*6/uL (4.20-5.50); Red Cell Distribution Width 13.2 % (11.0-16.0); White Blood Count 6.1 X10*3/uL (4.8-10.8)
[2022-05-14 11:09] LABS: Bacteria Urine None Seen (None Seen); Hyaline Casts Urine 0-2 /LPF (0-2); RBC Urine 0-2 /HPF (0-2); Squamous Epithelial Cell Urine 0-2 /HPF (0-2); UACC Culture Trigger YES; WBC Urine 0-5 /HPF (0-5)
[2022-05-14 11:44] LABS: Alanine Aminotransferase 31 U/L (0-31); Albumin Level 4.2 g/dL (3.5-5.0); Alkaline Phosphatase 51 U/L (39-117); Anion Gap 10 (12-20); Aspartate Amino Transferase 23 U/L (5-31); Blood Urea Nitrogen 22 mg/dL (9-16); C Reactive Protein 0.17 mg/dL (< or = 0.50); Calcium 9.5 mg/dL (8.4-10.2); Carbon Dioxide 28 mmol/L (22-29); Chloride 106 mmol/L (96-108); Cholesterol 197 mg/dL; Estimated Glomerular Filt Rate > 60; Free T4 (Free Thyroxine) 0.98 ng/dL (0.71-1.85); Glucose Fasting 112 mg/dL (60-99); HDL Cholesterol 38 mg/dL; LDL Cholesterol Calculated 120 mg/dl; Potassium 4.1 mmol/L (3.3-5.1); Sodium 140 mmol/L (135-145); Thyroid Stimulating Hormone 2.16 uIU/mL (0.32-4.0); Total Protein 6.4 g/dL (6.5-8.0); Triglycerides 197 mg/dL
== END 2022-05-14 08:04 | disposition home or self-care (01) ==
LOC: HO.10HDL 08:03
PROVIDERS: Visit Provider Internal Medicine
DX: I10 Essential (primary) hypertension (principal); K21.9 Gastro-esophageal reflux disease without esophagitis; R73.03 Prediabetes; M19.90 Unspecified osteoarthritis, unspecified site; R61 Generalized hyperhidrosis
CPT/HCPCS: 36415; 80053; 80061; 81001; 81003; 82550; 84439; 84443; 85025; 86140; 87086

== ENCOUNTER 2022-05-14 08:24 | Outpatient (REF) | payer MEDICARE, SELFPAY ==
--- NOTE | ~2022-05-14 | US_ITS ---
EXAMINATION: MM DIAGNOSTIC DIGITAL MAMMOGRAPHY, LEFT US DIAGNOSTIC ULTRASOUND BREAST, BILATERAL CLINICAL INFORMATION: Recall from screening for circumscribed nodule right breast anterior upper outer quadrant under 1 cm slightly increased in size from prior studies. Also recall for left breast oval nodule 0.7 cm slightly increased in size with some associated superimposed calcification. COMPARISON: Mammography: 05/07/2022, 08/17/2018 TECHNIQUE: Digital mammography is performed in the following views: Magnification CC, magnification ML. Ultrasound is targeted to the areas of recent imaging interest, anterior right breast upper outer quadrant and left breast upper outer quadrant. Grayscale imaging and color Doppler are performed without and with harmonics. FINDINGS: There are scattered areas of fibroglandular density (ACR BI-RADS breast composition Category b). The additional magnification views show a few relatively coarse calcifications overlying the index nodule. The calcifications appear along the dependent portion of the nodule on MLO view which may suggest calcium in the wall or lumen of a cyst. There are other scattered punctate calcifications left breast, dispersed on ML view. Biopsy clip marker again seen. Ultrasound right breast demonstrates a simple anechoic cyst anterior 11:00 position measuring approximately 0.7 x 0.5 cm. There is increased through-transmission of sound. No solid mass or architectural abnormality. The cyst corresponds to finding on mammography and is benign. Ultrasound left breast demonstrates and incidental intramammary node at 2:00 position 8 cm from nipple with normal luisana architecture measuring 0.6 x 0.3 cm. There is also cyst with some mural calcification 2:00 position 6 cm from nipple measuring 0.7 x 0.3 cm which may correspond to the finding on mammography. There is no solid mass or architectural abnormality. Results are discussed with the patient at time of visit. US/US breast LT limited IMPRESSION: Right: -Incidental simple cyst anterior upper outer right breast corresponding to finding on mammography. Left: -Nodule with probable benign peripheral calcification and possible ultrasound cyst correlate. ASSESSMENT: BI-RADS 3: Probably Benign RECOMMENDATION: -Diagnostic left mammography in 6 months to include magnification views. Ultrasound if warranted. This patient's information was entered into a reminder system with a target due date for their next mammogram.
== END 2022-05-14 08:25 | disposition home or self-care (01) ==
LOC: HO.MAMMO 08:24
PROVIDERS: PCP Internal Medicine; Visit Provider Internal Medicine
DX: R92.2 Inconclusive mammogram (principal)
CPT/HCPCS: 76642; 77065

== ENCOUNTER → 2022-10-07 12:34 | Outpatient (BNVA) | payer MEDICARE, SELFPAY | PROVIDERS: PCP Internal Medicine; Referring Provider Internal Medicine; Visit Provider Internal Medicine Cardiovascular Disease | DX: Z45.018 Encounter for adjustment and management of other part of cardiac pacemaker (principal); I47.29 Other ventricular tachycardia; I10 Essential (primary) hypertension | CPT/HCPCS: 93280; 99212 ==

== ENCOUNTER 2022-10-17 12:22 | Outpatient (REF) | payer MEDICARE, SELFPAY ==
[2022-10-20 21:33] LABS: Lyme Abs Screen <0.90 index
== END 2022-10-17 12:23 | disposition home or self-care (01) ==
LOC: HO.10HDL 12:22
PROVIDERS: Visit Provider Internal Medicine
DX: T14.8XXA Other injury of unspecified body region, initial encounter (principal); W57.XXXA Bitten or stung by nonvenomous insect and other nonvenomous arthropods, initial encounter
CPT/HCPCS: 36415; 86617; 86618

== ENCOUNTER 2022-11-11 10:45 | Outpatient (REF) | payer MEDICARE, SELFPAY ==
--- NOTE | ~2022-11-11 | MM_ITS ---
EXAMINATION: MM DIAGNOSTIC DIGITAL BREAST TOMOSYNTHESIS, LEFT CLINICAL INFORMATION: Short interval follow-up probable benign nodule with some round peripheral calcification and possible benign ultrasound correlate on prior imaging. The lifetime risk of breast cancer based on the Tyrer-Cuzick Model is 4%. COMPARISON: Prior breast imaging exams including most recent priors 05/14/2022. TECHNIQUE: Digital breast tomosynthesis is performed in both the craniocaudal and mediolateral oblique views along with computer-aided detection (CAD). Synthesized 2D images are generated from the tomosynthesis. Additional views are obtained: CC, MLO, magnification CC, magnification ML. FINDINGS: There are scattered areas of fibroglandular density (ACR BI-RADS breast composition Category b). The nodule for follow-up with a few punctate calcifications appear stable from prior diagnostic exam. The remainder of the left breast parenchymal pattern is similar to prior exams. There is no developing density or architectural abnormality. No abnormal calcifications. 2 biopsy clip markers again seen upper outer quadrant. There is a pacemaker generator overlying and partly obscuring the left axilla on MLO view. The skin contours are smooth. Results are provided to the patient at time of visit by the technologist. MM/MM tomosynthesis diagnostic LT IMPRESSION: -No significant changes from prior diagnostic exam. ASSESSMENT: BI-RADS 3: Probably Benign RECOMMENDATION: Diagnostic mammography at time of annual bilateral mammography, due in 6 months. This patient's information was entered into a reminder system with a target due date for their next mammogram.
== END 2022-11-11 10:46 | disposition home or self-care (01) ==
LOC: HO.MAMMO 10:45
PROVIDERS: PCP Internal Medicine; Visit Provider Internal Medicine
DX: R92.2 Inconclusive mammogram (principal)
CPT/HCPCS: 77061; 77065

== ENCOUNTER 2023-03-20 10:55 | Outpatient (REF) | payer MEDICARE, SELFPAY ==
--- NOTE | ~2023-03-20 | XR_ITS ---
EXAMINATION: XR LUMBAR SPINE, PELVIS CLINICAL INDICATION: Back pain COMPARISON: Lumbar spine 04/22/2010 TECHNIQUE: 3 views of the lumbar spine. AP view of the pelvis. FINDINGS: LUMBAR SPINE: Facet arthritis in the lower lumbar spine. Progression of multilevel degenerative changes with hypertrophic change in the lumbar spine. Moderate loss of disc space height at L3-L4 and L4-L5. Progression of degenerative changes in the imaged lower thoracic spine. PELVIS: Mild degenerative changes in the bilateral sacroiliac joints. Mild degenerative changes in bilateral hips with lateral hypertrophic change and joint space narrowing, left greater than right. XR/XR lumbar spine 2-3V IMPRESSION: 1. Progression of multilevel degenerative changes most notable at L3-L4 and L4-L5. 2. Mild degenerative changes in the bilateral sacroiliac joints. 3. Mild degenerative changes in bilateral hips, left greater than right.
--- NOTE | ~2023-03-20 | XR_ITS ---
EXAMINATION: XR LUMBAR SPINE, PELVIS CLINICAL INDICATION: Back pain COMPARISON: Lumbar spine 04/22/2010 TECHNIQUE: 3 views of the lumbar spine. AP view of the pelvis. FINDINGS: LUMBAR SPINE: Facet arthritis in the lower lumbar spine. Progression of multilevel degenerative changes with hypertrophic change in the lumbar spine. Moderate loss of disc space height at L3-L4 and L4-L5. Progression of degenerative changes in the imaged lower thoracic spine. PELVIS: Mild degenerative changes in the bilateral sacroiliac joints. Mild degenerative changes in bilateral hips with lateral hypertrophic change and joint space narrowing, left greater than right. XR/XR pelvis 1-2V IMPRESSION: 1. Progression of multilevel degenerative changes most notable at L3-L4 and L4-L5. 2. Mild degenerative changes in the bilateral sacroiliac joints. 3. Mild degenerative changes in bilateral hips, left greater than right.
[2023-03-20 11:06] LABS: MANUAL DIFF FLAG NO
[2023-03-20 12:48] LABS: Basophils Absolute Auto 0.1 X10*3/uL (0.0-0.2); Basophils Percent Auto 0.9 % (0-2); Eosinophils Absolute Auto 0.1 X10*3/uL (0.0-0.4); Eosinophils Percent Auto 0.9 % (0-4); Hematocrit 45.9 % (37.0-47.0); Hemoglobin 15.1 g/dl (12.0-16.0); Imm Gran Abs Auto 0.03 X10*3/uL (0.00-0.03); Imm Gran Pct Auto 0.4 % (0.0-0.4); Lymphocytes Absolute Auto 2.1 X10*3/uL (1.2-4.9); Lymphocytes Percent Auto 29.8 % (20-40); Mean Corpuscular HGB Conc 32.9 g/dl (31.0-35.0); Mean Corpuscular Volume 91.3 fL (80.0-98.0); Mean Platelet Volume 11.5 fL (9.4-12.3); Monocytes Absolute Auto 0.6 X10*3/uL (0.1-1.2); Neutrophils Absolute Auto 4.2 x10*3/uL (2.0-8.3); Platelet Count 228 X10*3/uL (160-400); Red Blood Count 5.03 X10*6/uL (4.20-5.50); Red Cell Distribution Width 13.5 % (11.0-16.0)
[2023-03-20 13:20] LABS: Alanine Aminotransferase 38 U/L (0-31); Albumin Level 4.3 g/dL (3.5-5.0); Alkaline Phosphatase 57 U/L (39-117); Anion Gap 12 (12-20); Aspartate Amino Transferase 27 U/L (5-31); Blood Urea Nitrogen 18 mg/dL (9-16); C Reactive Protein 0.22 mg/dL (< or = 0.50); Calcium 9.5 mg/dL (8.4-10.2); Carbon Dioxide 27 mmol/L (22-29); Chloride 105 mmol/L (96-108); Estimated Glomerular Filt Rate > 60; Glucose Random 107 mg/dL (60-115); Lipase 10 U/L (8-78); Potassium 3.7 mmol/L (3.3-5.1); Sodium 140 mmol/L (135-145)
== END 2023-03-20 10:56 | disposition home or self-care (01) ==
LOC: HO.LAB 10:55
PROVIDERS: PCP Internal Medicine; Visit Provider Internal Medicine
DX: M54.9 Dorsalgia, unspecified (principal); I10 Essential (primary) hypertension; R10.9 Unspecified abdominal pain; K21.9 Gastro-esophageal reflux disease without esophagitis
CPT/HCPCS: 36415; 72100; 72170; 80053; 83690; 85025; 86140

== ENCOUNTER 2023-04-21 09:22 | Outpatient (AMB) | payer MEDICARE, SELFPAY ==
--- NOTE | 2023-04-21 09:32 | MHC.OFFVIS ---
Intake Vital Signs 04/21/23 09:34 Height 5 ft 5.5 in Weight 213 lb 13.574 oz BMI 35.0 BP 120/76 Blood Pressure Location Lt brachial Position Sitting Pulse 70 Intake Visit Reasons: 6 mth f/up and pacer ck Intake Note: 6 month follow-up with ekg and medtronic check feeling good Curtain Cutter Required: No Allergies adhesive tape [Adhesive Tape] Allergy (Intermediate, Verified 05/07/21 10:15) RASH/BLISTERS doxycycline [Doxycycline] Allergy (Intermediate, Verified 05/07/21 10:15) RASH/ITCH Statins Support Allergy (Intermediate, Uncoded 05/07/21 10:15) leg cramping Medication List - Last Reconciled 04/21/23 by Og Lacy MD amlodipine 5 mg PO DAILY aspirin (Adult Low Dose Aspirin) 81 mg PO DAILY atenolol 100 mg PO DAILY cholecalciferol (vitamin D3) 25 mcg PO DAILY lisinopril 20 mg PO DAILY omeprazole 20 mg PO DAILY vitamin B complex (B Complex-Vitamin B12 tablet) 1 tab PO DAILY HPI HPI Comments History of Present Illness Details Ruby comes for follow-up. She has been doing well overall. Denies any lightheadedness, syncope. No prolonged palpitation irregular heartbeat. Denies any exertional chest pain. No worsening shortness of breath. Her main issue currently is back pain which limits her exercise activity. Denies any orthopnea, PND, leg edema. Taking all her medications. Blood pressure is well optimized at home. [facility] Medical History Hiatal hernia GERD (gastroesophageal reflux disease) History of diverticulitis Arthritis HTN (hypertension) Cardiac pacemaker in situ Complete heart block Surgical History History of kidney surgery History of excision of Zenker's diverticulum Hx of appendectomy Hx of cholecystectomy Hx of colonoscopy Hx of blepharoplasty History of permanent cardiac pacemaker placement Hx of cardiac cath History of esophagogastroduodenoscopy (EGD) Family History Father No problems noted. Mother No problems noted. Social History Patient Tobacco Use Status: Never used Tobacco Advance Directives Date on File: 03/14/20 Review of Systems Const Denies chills, Denies fatigue, Denies fever(s), Denies frequent falls, Denies weakness, Denies weight gain and Denies weight loss ENT Denies dizziness Card Denies chest pain, Denies leg edema, Denies lightheadedness, Denies palpitations, Denies dyspnea, Denies dyspnea on exertion, Denies orthopnea and Denies other (loss of consciousness) Resp Denies cough, Denies dyspnea and Denies dyspnea on exertion GI Denies hematochezia and Denies change in stool character Musc Denies abnormal gait, Denies muscle weakness, Denies numbness, Denies radiating pain into limb and Denies tingling Neuro Denies abnormal gait, Denies dizziness, Denies frequent falls, Denies numbness, Denies tingling and Denies weakness Endo Denies fatigue and Denies palpitations Physical Exam Vital Signs: Last Vital Signs Pulse 70 04/21/23 09:34 BP 120/76 04/21/23 09:34 BMI result Body Mass Index 35.0 Const General: cooperative, comfortable, no acute distress, alert, awake and well groomed Nutritional Appearance: obese Orientation/consciousness: patient oriented x3 Limitations: no limitations Neck Neck: Yes trachea midline, Yes supple and Yes no JVD Resp Effort & Inspection: normal respiratory effort Auscultation: clear to auscultation bilaterally Cardio Jugular venous distension: no JVD Palpation: normal PMI Rate: regular rate Rhythm: regular rhythm Heart sounds: S1 normal heart sound present and S2 normal heart sound present GI Percussion: Yes normal to percussion Skin General skin exam: no rashes or lesions noted Neuro General: patient oriented x3 and no focal motor deficits Extrem General: Yes no clubbing, cyanosis or edema Psych Appearance: grossly normal Affect: Anxious affect present Office Procedures Cardiac Device Check Cardiac Device Check Details: Dual-chamber Medtronic pacemaker in place. Programmed in DDDR mode at 60 beats per minute. Ventricular pacing 100% time. No arrhythmias detected. Atrial ventricular pacing thresholds adequate. Atrial sensing was adequate. Pacing lead impedance is stable. Battery life is at 2 years [id number] Cardiac Device Check, pacemaker dual lead Procedure code (CPT) selection complete EKG Details: EKG shows dual AV paced rhythm, unchanged from before [id number], Complete Assessment & Plan Assessment & Plan (1) Cardiac pacemaker in situ: Comment: Dual-chamber Medtronic cardiac pacemaker, November 2014 Code(s): Z95.0 - Presence of cardiac pacemaker Plan: Cardiac pacemaker in-situ for complete heart block. Structural heart workup was within normal limits. Patient has no symptoms related to the same. Will continue monitor remotely every 3 months and follow up in the clinic in 6 months time. (2) HTN (hypertension): Code(s): I10 - Essential (primary) hypertension Plan: Difficult control blood pressure which is currently well optimized on current therapy with amlodipine as well as atenolol and lisinopril. She had some orthostatic symptoms in the past which have not resolved advised to maintain adequate fluid intake. Advised to monitor blood pressure at home maintain a log. Goal blood pressure less than 130/84. Low-salt diet was discussed. (3) Nonsustained ventricular tachycardia: Code(s): I47.2 - Ventricular tachycardia Plan: Prior nonsustained ventricular tachycardia which have not recurred at this point in time on atenolol therapy. Continue monitor by pacer telemetry. Has recurrence may need to workup for infiltrative cardiac disorders. Will follow up in the clinic in 6 months time, sooner p.r.n.. Thank you for allowing me to partake in her care Coding Level of Care Code Est Pt Level 4 (18067) Diagnoses Cardiac pacemaker in situ Z95.0 HTN (hypertension) I10 Nonsustained ventricular tachycardia I47.2 CPT Codes Cardiac Device Check - Cardiac Device 2: [id number] Cardiac Device Check, pacemaker dual lead ([id number]) EKG - CPT: 19697-[id number], Complete ([id number])
[2023-04-21 09:34] VITALS: BP 120/76; PULSE 70; BMI 35.0
== END 2023-04-21 10:03 | disposition home or self-care (01) ==
PROVIDERS: Visit Provider Internal Medicine Cardiovascular Disease
DX: I10 Essential (primary) hypertension (principal); I47.20 Ventricular tachycardia, unspecified; Z95.0 Presence of cardiac pacemaker
CPT/HCPCS: 93280; 99214

== ENCOUNTER → 2023-04-21 09:22 | Outpatient (BNVA) | payer MEDICARE, SELFPAY | PROVIDERS: Visit Provider Internal Medicine Cardiovascular Disease | DX: Z45.018 Encounter for adjustment and management of other part of cardiac pacemaker (principal); I47.20 Ventricular tachycardia, unspecified; I10 Essential (primary) hypertension | CPT/HCPCS: 93005; 93280; 99212 ==

== ENCOUNTER 2023-05-14 08:42 | Outpatient (REF) | payer MEDICARE, SELFPAY ==
--- NOTE | ~2023-05-14 | MM_ITS ---
EXAMINATION: MM DIAGNOSTIC DIGITAL BREAST TOMOSYNTHESIS, BILATERAL CLINICAL INFORMATION: Follow-up nodule left breast upper outer quadrant with small calcifications. Due for bilateral screening. COMPARISON: Mammography: 11/11/2022, 05/07/2022, 08/17/2018. TECHNIQUE: Digital breast tomosynthesis is performed in both the craniocaudal and mediolateral oblique views along with computer-aided detection (CAD). Synthesized 2D images are generated from the tomosynthesis. FINDINGS: There are scattered areas of fibroglandular density (ACR BI-RADS breast composition Category b). Left-sided pacemaker device. Post benign biopsy clips left breast outer slightly upper aspect. The nodule for follow-up with a few punctate calcifications appears stable from prior diagnostic exams. This is unchanged and benign. There are no suspicious findings in the right breast. MM/MM tomosynthesis diagnostic BI IMPRESSION: There are no significant changes from prior study. Stable benign findings left breast. Recommend patient return to routine screening. ASSESSMENT: BI-RADS BI-RADS 2 - Benign Findings RECOMMENDATION: 1 year F/U Results were provided to the patient at time of visit by the technologist. This patient's information was entered into a reminder system with a target due date for their next mammogram.
== END 2023-05-14 08:43 | disposition home or self-care (01) ==
LOC: HO.MAMMO 08:42
PROVIDERS: PCP Internal Medicine; Visit Provider Internal Medicine
DX: R92.2 Inconclusive mammogram (principal)
CPT/HCPCS: 77062; 77066

== ENCOUNTER → 2023-05-14 09:00 | Outpatient (BNV) | payer MEDICARE, SELFPAY | PROVIDERS: PCP Internal Medicine; Visit Provider Radiology Diagnostic Radiology | DX: R92.1 Mammographic calcification found on diagnostic imaging of breast (principal); R92.323 Mammographic fibroglandular density, bilateral breasts | CPT/HCPCS: 77062; 77066; G0279 ==

== ENCOUNTER 2023-06-15 09:00 | Outpatient (RCR) | payer MEDICARE, SELFPAY ==
--- NOTE | 2023-05-19 12:32 | MHC.PT.EP ---
[facility] [place] Office [place] Office [place] Office [address] [place] Blas [address] [phone] F: [phone] F: [phone] F: [phone] F: [phone] Physical Therapy Plan of Care Date of Evaluation: 05/19/23 Date of Surgery: Diagnosis: low back pain Assessment: Pt is a 67yo female recently diagnosed with mild arthritis multiple joints, leading to back, SIJ, and hip pain. PT exam reveals multiple impairments including pelvic obliquity, muscle weakness, abnormal posture/gait. Skilled PT indicated to promote core strength to stabilize spine/improve posture, promote hip strength with HEP completion to improve gait pattern. Pt in agreement with POC and is motivated to participate. Frequency and Duration: The patient will be seen 2x/week, x 4 weeks Short Term Goals: 1. In 2 weeks, patient will be able to fully complete TAC and hold x 10 seconds. 2. In 2 weeks, patient will be able to complete glute bridge through 50% ROM without increased pain. 3. In 2 weeks, patient will be I with daily stretching and core/hip exercises for HEP. Prison Goals: 1. In 4 weeks, patient will not have recurrent pelvic obliquity with use of SIJ belt, leading to reduced pain and improved tolerance for standing. 2. In 4 weeks, improve TEREZA by 25% indicating improved functional mobility. 3. in 4 weeks, B hip MMT improved to 4/5 all planes. Treatment Plan: Modalities to reduce pain, spasms and effusion. Manual therapy to restore motion and function. Therapeutic exercise to improve strength and flexibility. Neuromuscular re-education for posture and balance. Therapeutic activities to return to functional activities of daily living. Electronically signed by: Ann Rawls PT, DPT Please sign and return to therapist. Thank you for your referral.
--- NOTE | 2023-07-06 11:54 | MHC.PT.DC ---
[facility] [place] Office [place] [facility] [place] Office [address] [place] Blas [address] [phone] F: [phone] F: [phone] F: [phone] F: [phone] Physical Therapy Discharge Report Diagnosis: low back pain Date of Surgery: Date of Evaluation: 05/19/23 Date of Discharge: 06/15/23 Treatments to Date: 9 Cancellations to Date: No Shows to Date: Discharge Status: Discharge Summary: Pt referred to PT for chronic lumbago. CT spine shows multilevel degenerative changes rhonda at L4-5 level. Pt had experienced painreduction wuth exercises, and relief after MH and stepper. Also finds sx relief with prone lying. Pt has some progress toward STGs only. TEREZA improved from 46% to 22%, a significant improvement from SOC. Pt remains challenged with hip hinge and glut activation. D/C today to HEP as she is going away on vacation. She would benefit from additional PT upon return if needed. Electronically signed by: Ann Rawls PT, DPT Please sign and return to therapist. Thank you for your referral.
== END 2023-07-06 11:55 | disposition home or self-care (01) ==
LOC: HO.PT 09:00
PROVIDERS: PCP Internal Medicine; Visit Provider Internal Medicine
DX: M54.50 Low back pain, unspecified (principal)
CPT/HCPCS: 97110; 97140; 97162

== ENCOUNTER 2023-06-19 10:07 | Outpatient (REF) | payer MEDICARE, SELFPAY ==
[2023-06-19 10:34] LABS: MANUAL DIFF FLAG NO
[2023-06-19 10:37] LABS: Basophils Absolute Auto 0.1 X10*3/uL (0.0-0.2); Basophils Percent Auto 0.7 % (0-2); Eosinophils Absolute Auto 0.1 X10*3/uL (0.0-0.4); Eosinophils Percent Auto 0.9 % (0-4); Hematocrit 46.7 % (37.0-47.0); Hemoglobin 15.3 g/dl (12.0-16.0); Imm Gran Abs Auto 0.04 X10*3/uL (0.00-0.03); Imm Gran Pct Auto 0.6 % (0.0-0.4); Lymphocytes Absolute Auto 2.1 X10*3/uL (1.2-4.9); Lymphocytes Percent Auto 30.4 % (20-40); Mean Corpuscular HGB Conc 32.8 g/dl (31.0-35.0); Mean Corpuscular Volume 91.6 fL (80.0-98.0); Monocytes Absolute Auto 0.6 X10*3/uL (0.1-1.2); Monocytes Percent Auto 8.1 % (2-11); Neutrophils Absolute Auto 4.2 x10*3/uL (2.0-8.3); Neutrophils Percent Auto 59.3 % (45-73); Platelet Count 226 X10*3/uL (160-400); Red Cell Distribution Width 13.3 % (11.0-16.0)
[2023-06-19 10:49] LABS: Appearance Urine Cloudy; Color Urine Yellow; Glucose Urine UA Negative (Negative); Leukocyte Esterase Urine Moderate (2+) (Negative); Nitrite Urine Negative (Negative); UMIC TRIGGER UA YES; Urine Blood Negative (Negative); Urine Ketones Negative (Negative); Urine Protein Negative (Neg-Trace)
[2023-06-19 11:07] LABS: Alanine Aminotransferase 33 U/L (0-31); Albumin Level 4.4 g/dL (3.5-5.0); Alkaline Phosphatase 52 U/L (39-117); Anion Gap 11 (12-20); Aspartate Amino Transferase 23 U/L (5-31); Bilirubin Total 0.9 mg/dL (0.0-1.0); Blood Urea Nitrogen 29 mg/dL (9-16); Calcium 9.7 mg/dL (8.4-10.2); Carbon Dioxide 28 mmol/L (22-29); Chloride 105 mmol/L (96-108); Cholesterol 207 mg/dL (<200); Estimated Glomerular Filt Rate > 60; Glucose Fasting 109 mg/dL (60-99); HDL Cholesterol 40 mg/dL (>40); LDL Cholesterol Calculated 132 mg/dL (<100); Potassium 4.2 mmol/L (3.3-5.1); Sodium 140 mmol/L (135-145); Total Protein 7.3 g/dL (6.5-8.0); Triglycerides 179 mg/dL (<150)
[2023-06-19 11:19] LABS: Bacteria Urine 4+ (None Seen); Hyaline Casts Urine 0-2 /LPF (0-2); RBC Urine 0-2 /HPF (0-2); WBC Urine 21-50 /HPF (0-5)
[2023-06-19 11:26] LABS: Specific Gravity - Urine >= 1.030 (1.005-1.025)
== END 2023-06-19 10:08 | disposition home or self-care (01) ==
LOC: HO.10HDL 10:07
PROVIDERS: Visit Provider Internal Medicine
DX: I10 Essential (primary) hypertension (principal); K21.9 Gastro-esophageal reflux disease without esophagitis; R73.03 Prediabetes; G47.33 Obstructive sleep apnea (adult) (pediatric)
CPT/HCPCS: 36415; 80053; 80061; 81001; 85025

== ENCOUNTER 2023-09-25 15:04 | Outpatient (REF) | payer MEDICARE, SELFPAY ==
[2023-09-25 16:40] LABS: Appearance Urine Clear; Color Urine Yellow; Glucose Urine UA Negative (Negative); Leukocyte Esterase Urine Small (1+) (Negative); Nitrite Urine Negative (Negative); Specific Gravity - Urine 1.025 (1.005-1.025); UMIC TRIGGER UA YES; Urine Blood Negative (Negative); Urine Ketones Negative (Negative); Urine Protein Negative (Neg-Trace)
[2023-09-25 17:43] LABS: Bacteria Urine None Seen (None Seen); Hyaline Casts Urine 0-2 /LPF (0-2); RBC Urine 0-2 /HPF (0-2); Squamous Epithelial Cell Urine 0-2 /HPF (0-2); WBC Urine 0-5 /HPF (0-5)
[2023-09-29 03:33] LABS: Lyme Abs Screen <0.90 index
== END 2023-09-25 15:05 | disposition home or self-care (01) ==
LOC: HO.LAB 15:04
PROVIDERS: PCP Internal Medicine; Visit Provider Internal Medicine
DX: T14.8XXA Other injury of unspecified body region, initial encounter (principal); R06.00 Dyspnea, unspecified; R82.90 Unspecified abnormal findings in urine; W57.XXXA Bitten or stung by nonvenomous insect and other nonvenomous arthropods, initial encounter; Y93.9 Activity, unspecified; Y92.9 Unspecified place or not applicable; Y99.9 Unspecified external cause status
CPT/HCPCS: 36415; 81001; 81003; 86617; 86618; 87086

== ENCOUNTER 2023-10-02 14:27 | Outpatient (AMB) | payer MEDICARE, SELFPAY ==
--- NOTE | 2023-10-02 16:12 | MHC.OFFVIS ---
Intake Visit Reasons: medtronic check Allergies adhesive tape [Adhesive Tape] Allergy (Intermediate, Verified 05/07/21 10:15) RASH/BLISTERS doxycycline [Doxycycline] Allergy (Intermediate, Verified 05/07/21 10:15) RASH/ITCH Statins Support Allergy (Intermediate, Uncoded 05/07/21 10:15) leg cramping PFSH Medical History Hiatal hernia GERD (gastroesophageal reflux disease) History of diverticulitis Arthritis HTN (hypertension) Cardiac pacemaker in situ Complete heart block Surgical History History of kidney surgery History of excision of Zenker's diverticulum Hx of appendectomy Hx of cholecystectomy Hx of colonoscopy Hx of blepharoplasty History of permanent cardiac pacemaker placement Hx of cardiac cath History of esophagogastroduodenoscopy (EGD) Family History Father No problems noted. Mother No problems noted. Social History Patient Tobacco Use Status: Never used Tobacco Advance Directives Date on File: 03/14/20 Office Procedures Cardiac Device Check Cardiac Device Check Details: Patient had concerns that the device may have moved. Office device check done today showing battery 1 year, atrial threshold 0.5 volts at 0.4 milliseconds, RV threshold 0.35 volts at 0.4 milliseconds, DDDR mode, low rate 60, no VT or VF, no 80 or AF, patient activity 7.2 hours per day, V paced 100%, no alerts. Patient informed and offered reassurance that device is functioning normally. [id number] Cardiac Device Check, pacemaker dual lead Procedure code (CPT) selection complete Assessment & Plan Assessment & Plan (1) Cardiac pacemaker in situ: Comment: Dual-chamber Medtronic cardiac pacemaker, November 2014 Code(s): Z95.0 - Presence of cardiac pacemaker Category: Medical Plan: Office device check done today as she felt that the pacemaker moved in her chest when she rolled over. Coding Level of Care Code Procedure Only Diagnoses Cardiac pacemaker in situ Z95.0 CPT Codes Cardiac Device Check - Cardiac Device 2: [id number] Cardiac Device Check, pacemaker dual lead ([id number])
== END 2023-10-02 15:01 | disposition home or self-care (01) ==
LOC: HO.HCS 14:27
PROVIDERS: PCP Internal Medicine; Visit Provider Internal Medicine Cardiovascular Disease
DX: Z45.018 Encounter for adjustment and management of other part of cardiac pacemaker (principal)
CPT/HCPCS: 93280

== ENCOUNTER → 2023-10-02 14:27 | Outpatient (BNVA) | payer MEDICARE, SELFPAY | PROVIDERS: PCP Internal Medicine; Visit Provider Internal Medicine Cardiovascular Disease | DX: Z45.018 Encounter for adjustment and management of other part of cardiac pacemaker (principal) | CPT/HCPCS: 93280 ==

== ENCOUNTER 2023-10-05 10:13 | Outpatient (REF) | payer MEDICARE, SELFPAY ==
--- NOTE | ~2023-10-05 | XR_ITS ---
EXAMINATION: XR THORACIC SPINE CLINICAL INFORMATION: Back pain COMPARISON: None available. TECHNIQUE: 3 views of the thoracic spine were obtained. FINDINGS: There is no fracture or bone destruction seen and the vertebral alignment is normal. There is no disc space narrowing. There is no abnormality of the paraspinal soft tissues. XR/XR thoracic spine 3V IMPRESSION: Unremarkable examination.
== END 2023-10-05 10:14 | disposition home or self-care (01) ==
LOC: HO.XRAY 10:13
PROVIDERS: PCP Internal Medicine; Visit Provider Internal Medicine
DX: M54.6 Pain in thoracic spine (principal)
CPT/HCPCS: 72072

== ENCOUNTER 2023-10-26 09:21 | Outpatient (REF) | payer MEDICARE, SELFPAY ==
--- NOTE | ~2023-10-26 | US_ITS ---
EXAMINATION: US RETROPERITONEAL LIMITED (RENAL ONLY) CLINICAL INFORMATION: Malignant neoplasm of unspecified kidney, except renal pelvis. COMPARISON: Renal ultrasound 11/08/2021. X-ray abdomen KUB 04/29/2021. Renal ultrasound 10/03/2020. CT abdomen and pelvis 03/28/2020. TECHNIQUE: Real-time imaging of the kidneys. FINDINGS: RIGHT KIDNEY: 11.8 x 5.3 x 4.6 cm (SAG x AP x TRV). The kidney is normal in size, contour, and echogenicity. Renal cortical thickness is normal. No renal calculi or hydronephrosis. There are multiple right renal cysts including upper pole septated cyst measuring 2.2 x 2.3 x 2.0 cm, no imaging follow-up is recommended. There is a 1.8 x 1.1 x 1.3 cm upper to mid benign cyst, no imaging follow-up is recommended. There is a 1.4 x 1.2 x 1.4 cm benign mid renal cyst, no imaging follow-up is recommended. There is a 2.7 x 1.5 x 2.7 cm septated cysts in the lower pole, no imaging follow-up is recommended. LEFT KIDNEY: 11.9 x 5.5 x 4.3 cm (SAG x AP x TRV). The kidney is normal in size, contour, and echogenicity. Renal cortical thickness is normal. No renal calculi or hydronephrosis. 5.1 x 3.2 x 4.0 cm septated exophytic upper pole cyst is seen, no imaging follow-up is recommended. US/US renal BI IMPRESSION: Bilateral renal cysts, no imaging follow-up is recommended..
== END 2023-10-26 09:22 | disposition home or self-care (01) ==
LOC: HO.US 09:21
PROVIDERS: PCP Internal Medicine; Visit Provider Urology
DX: C64.9 Malignant neoplasm of unspecified kidney, except renal pelvis (principal)
CPT/HCPCS: 76775

== ENCOUNTER 2023-10-27 09:51 | Outpatient (AMB) | payer MEDICARE, SELFPAY ==
[2023-10-27 10:05] VITALS: BP 124/80; PULSE 82; BMI 35.4
--- NOTE | 2023-10-27 10:05 | A.OFFVIS_ITS ---
Vital Signs 10/27/23 10:05 Height 5 ft 5.5 in Weight 216 lb 0.848 oz BMI 35.4 BP 124/80 Blood Pressure Location Lt brachial Position Sitting Pulse 82 Intake Visit Reasons: 6 mth w pacer ck Intake Note: 6 month follow-up with [employer] check feeling good Newcomer Hostess Required: No Allergies adhesive tape [Adhesive Tape] Allergy (Intermediate, Verified 05/07/21 10:15) RASH/BLISTERS doxycycline [Doxycycline] Allergy (Intermediate, Verified 05/07/21 10:15) RASH/ITCH Statins Support Allergy (Intermediate, Uncoded 05/07/21 10:15) leg cramping Medication List - Last Reconciled 10/27/23 by Og Lacy MD amlodipine 5 mg PO DAILY aspirin (Adult Low Dose Aspirin) 81 mg PO DAILY atenolol 100 mg PO DAILY cholecalciferol (vitamin D3) 25 mcg PO DAILY lisinopril 20 mg PO DAILY omeprazole 20 mg PO DAILY vitamin B complex (B Complex-Vitamin B12 tablet) 1 tab PO DAILY HPI Comments Details: Ruby comes for follow-up. Patient has been doing overall well she had 1 episode where she had intense burp and then following that she felt like her pacemaker mood. And following couple of days later she had symptoms of d izziness and felt the pacemaker might be malfunction. We checked it out in the office and was working well. Patient has been doing well since then. No lightheadedness or syncope. No exertional chest pain, shortness of breath, orthopnea, PND. No prolonged palpitation irregular heartbeat. She checks her blood pressure at home regularly and mostly well controlled in 130/82 range. FORMERLY [facility] Medical History Hiatal hernia GERD (gastroesophageal reflux disease) History of diverticulitis Arthritis HTN (hypertension) Cardiac pacemaker in situ Complete heart block Surgical History History of kidney surgery History of excision of Zenker's diverticulum Hx of appendectomy Hx of cholecystectomy Hx of colonoscopy Hx of blepharoplasty History of permanent cardiac pacemaker placement Hx of cardiac cath History of esophagogastroduodenoscopy (EGD) Family History Father No problems noted. Mother No problems noted. Social History Patient Tobacco Use Status: Never used Tobacco Advance Directives Date on File: 03/14/20 Review of Systems Const Denies chills, Denies fatigue, Denies fever(s), Denies frequent falls, Denies weakness, Denies weight gain and Denies weight loss ENT Denies dizziness Card Denies chest pain, Denies leg edema, Denies lightheadedness, Denies palpitations, Denies dyspnea, Denies dyspnea on exertion, Denies orthopnea and Denies other (loss of consciousness) Resp Denies cough, Denies dyspnea and Denies dyspnea on exertion GI Denies hematochezia and Denies change in stool character Musc Denies abnormal gait, Denies muscle weakness, Denies numbness, Denies radiating pain into limb and Denies tingling Neuro Denies abnormal gait, Denies dizziness, Denies frequent falls, Denies numbness, Denies tingling and Denies weakness Endo Denies fatigue and Denies palpitations Physical Exam Vital Signs: Last Vital Signs Pulse 82 10/27/23 10:05 BP 124/80 10/27/23 10:05 BMI result Body Mass Index 35.4 Const General: cooperative, comfortable, no acute distress, alert, awake and well groomed Nutritional Appearance: obese Orientation/consciousness: patient oriented x3 Limitations: no limitations Neck Neck: Yes trachea midline, Yes supple and Yes no JVD Resp Effort & Inspection: normal respiratory effort Auscultation: clear to auscultation bilaterally Cardio Jugular venous distension: no JVD Palpation: normal PMI Rate: regular rate Rhythm: regular rhythm Heart sounds: S1 normal heart sound present and S2 normal heart sound present GI Percussion: Yes normal to percussion Skin General skin exam: no rashes or lesions noted Neuro General: patient oriented x3 and no focal motor deficits Extrem General: Yes no clubbing, cyanosis or edema Psych Appearance: grossly normal Affect: Anxious affect present Assessment & Plan Assessment & Plan (1) Cardiac pacemaker in situ: Comment: Dual-chamber [employer] cardiac pacemaker, November 2014 Code(s): Z95.0 - Presence of cardiac pacemaker Category: Medical Plan: Cardiac pacemaker in-situ for complete heart block. Pacemaker is working well. Will follow-up echocardiogram couple of months given constant RV pacing to evaluate for LV systolic dysfunction.. She now has remote monitor set up at home. Will follow up remotely every 3 months. Follow up in the clinic in 6 months time. (2) HTN (hypertension): Code(s): I10 - Essential (primary) hypertension Category: Medical Plan: Hypertension which is currently well optimized on current therapy. Continue amlodipine, lisinopril as well as atenolol therapy. She has no significant cardiac arrhythmias at this point time. She has no cardiac symptoms to report at this point time and no further workup is indicated in terms of ischemia workup. Continue to monitor blood pressure at home maintain a log. Low-salt diet was discussed advised to continue to participate in regular physical activity. Follow up in the clinic in 6 months time, sooner p.r.n.. Thank you for allowing me to partake in her care Coding Level of Care Code Est Pt Level 4 (64322) Diagnoses Cardiac pacemaker in situ Z95.0 HTN (hypertension) I10
== END 2023-10-27 10:51 | disposition home or self-care (01) ==
PROVIDERS: PCP Internal Medicine; Visit Provider Internal Medicine Cardiovascular Disease
DX: I10 Essential (primary) hypertension (principal); Z95.0 Presence of cardiac pacemaker
CPT/HCPCS: 99214

== ENCOUNTER → 2023-10-27 09:51 | Outpatient (BNVA) | payer MEDICARE, SELFPAY | PROVIDERS: PCP Internal Medicine; Visit Provider Internal Medicine Cardiovascular Disease | DX: I10 Essential (primary) hypertension (principal); Z95.0 Presence of cardiac pacemaker | CPT/HCPCS: 99212 ==

== ENCOUNTER → 2023-10-28 11:01 | Outpatient (REF) | payer MEDICARE, SELFPAY | LOC: HO.SL 11:01 | PROVIDERS: PCP Internal Medicine; Visit Provider Internal Medicine | DX: G47.33 Obstructive sleep apnea (adult) (pediatric) (principal) | CPT/HCPCS: 95806 ==

== ENCOUNTER → 2023-10-28 19:00 | Outpatient (BNV) | payer MEDICARE, SELFPAY | PROVIDERS: PCP Internal Medicine; Visit Provider Internal Medicine | DX: G47.33 Obstructive sleep apnea (adult) (pediatric) (principal) | CPT/HCPCS: 95806 ==

== ENCOUNTER 2023-11-11 14:45 | Outpatient (AMB) | payer MEDICARE, SELFPAY ==
--- NOTE | 2023-11-11 15:15 | A.OFFVIS_ITS ---
Intake Visit Reasons: US f/u Intake Note: Patient presents today for a follow-up on Renal Carcinoma: Meds- None Allergies to Antibiotic- No Known Allergies Blood Thinner- None Developmental Mathematics Professor Required: No Accompanied by: Self / Same As Patient Allergies adhesive tape [Adhesive Tape] Allergy (Intermediate, Verified 11/11/23 15:18) RASH/BLISTERS doxycycline [Doxycycline] Allergy (Intermediate, Verified 11/11/23 15:18) RASH/ITCH Statins Support Allergy (Intermediate, Uncoded 11/11/23 15:18) leg cramping PFSH Medical History Hiatal hernia GERD (gastroesophageal reflux disease) History of diverticulitis Arthritis HTN (hypertension) Cardiac pacemaker in situ Complete heart block Surgical History History of kidney surgery History of excision of Zenker's diverticulum Hx of appendectomy Hx of cholecystectomy Hx of colonoscopy Hx of blepharoplasty History of permanent cardiac pacemaker placement Hx of cardiac cath History of esophagogastroduodenoscopy (EGD) Family History Father No problems noted. Mother No problems noted. Social History Patient Tobacco Use Status: Never used Tobacco Advance Directives Date on File: 03/14/20 Results AMB Urinalysis, Automated UA Leukoctes 0 Howard/uL Last Edit by GIOVANA Schmitz on 11/11/23 15:24 UA Nitrite Negative Last Edit by GIOVANA Schmitz on 11/11/23 15:24 UA Urobilinogen 0.2 mg/dL Last Edit by GIOVAAN Schmitz on 11/11/23 15:2 4 UA Protein 15 mg/dL Last Edit by GIOVANA Schmitz on 11/11/23 15:24 UA pH 6.0 Last Edit by Leeroy Liu A on 11/11/23 15:24 UA Blood 0 Gabriel/uL Last Edit by Leeroy Liu, SHREYAA on 11/11/23 15:24 UA Specific Catherine 1.020 Last Edit by Leeroy Liu, GIOVANA on 11/11/23 15: 24 UA Ketone Negative Last Edit by GIOVANA Schmitz on 11/11/23 15:24 UA Bilirubin 0 mg/dL Last Edit by GIOVANA Schmitz on 11/11/23 15:24 UA Glucose 0 mg/dL Last Edit by Leeroy Liu Christelle on 11/11/23 15:24 Assessment & Plan Assessment & Plan Orders: Orders AMB Urinalysis Automated Today Z13.9 - Encounter for screening, unspecified Coding
--- NOTE | 2023-11-11 15:29 | A.OFFVIS_ITS ---
Intake Visit Reasons: US f/u Allergies adhesive tape [Adhesive Tape] Allergy (Intermediate, Verified 11/11/23 15:18) RASH/BLISTERS doxycycline [Doxycycline] Allergy (Intermediate, Verified 11/11/23 15:18) RASH/ITCH Statins Support Allergy (Intermediate, Uncoded 11/11/23 15:18) leg cramping HPI Comments Details: Ruby is a pleasant female. She is a patient of Dr. Knox. She is in for the following urologic conditions - renal carcinoma Follow-up imaging Five years since intervention Ultrasound shows stable renal cysts Can follow with primary care and have ultrasound every 2-3 years Renal carcinoma Initial diagnosis 03/26 Initial therapy cryotherapy Follow-up imaging - 03/27 CT scan bilateral small complex cyst - 10/26 renal ultrasound stable bilateral renal cysts Laboratories - 04/27 creatinine 0.9, 0.8 Therapeutic plan- continue with imaging surveillance [facility] Medical History Hiatal hernia GERD (gastroesophageal reflux disease) History of diverticulitis Arthritis HTN (hypertension) Cardiac pacemaker in situ Complete heart block Surgical History History of kidney surgery History of excision of Zenker's diverticulum Hx of appendectomy Hx of cholecystectomy Hx of colonoscopy Hx of blepharoplasty History of permanent cardiac pacemaker placement Hx of cardiac cath History of esophagogastroduodenoscopy (EGD) Family History Father No problems noted. Mother No problems noted. Social History Patient Tobacco Use Status: Never used Tobacco Advance Directives Date on File: 03/14/20 Review of Systems Const Denies chills and Denies fever(s) Card Reports no additional complaints and Denies syncope Resp Denies cough GI Denies abdominal pain and Denies heartburn Reports as per HPI and Denies change in libido Neuro Denies syncope Psych Denies change in libido Endo Denies change in libido Physical Exam Const General: cooperative, healthy appearing, comfortable and no acute distress Orientation/consciousness: patient oriented x3 HEENT Face and sinus: Yes normal facial exam Mouth: moist mucous membranes Neck Neck: Yes normal visual inspection, Yes full ROM and Yes trachea midline Chest Chest palpation & inspection: normal inspection of the chest Resp Effort & Inspection: normal respiratory effort, able to speak in complete sentences and no respiratory distress GI Inspection: Yes normal to inspection Back/Spine/Pelvis Cervical Spine: normal cervical lordosis Thoracic/Lumbar Spine: thoracic and lumbar spine normal to inspection Skin General skin exam: no rashes or lesions noted Neuro General: patient oriented x3, gait normal, tone normal and moves all extremities Extrem General: Yes normal to inspection and Yes capillary refill normal Results AMB Urinalysis, Automated UA Leukoctes 0 Howard/uL Last Edit by GIOVANA Schmitz on 11/11/23 15:24 UA Nitrite Negative Last Edit by Leeroy Liu Christelle on 11/11/23 15:24 UA Urobilinogen 0.2 mg/dL Last Edit by Leeroy Liu Christelle on 11/11/23 15:2 4 UA Protein 15 mg/dL Last Edit by Leeroy Liu Christelle on 11/11/23 15:24 UA pH 6.0 Last Edit by Leeroy Liu Christelle on 11/11/23 15:24 UA Blood 0 Gabriel/uL Last Edit by Leeroy Liu Christelle on 11/11/23 15:24 UA Specific Blythe 1.020 Last Edit by Leeroy Liu Christelle on 11/11/23 15: 24 UA Ketone Negative Last Edit by Leeroy Liu Christelle on 11/11/23 15:24 UA Bilirubin 0 mg/dL Last Edit by Leeroy Liu Christelle on 11/11/23 15:24 UA Glucose 0 mg/dL Last Edit by Leeroy Liu Christelle on 11/11/23 15:24 Results Reviewed Results Reviewed: Laboratory Last Values Urine pH (Auto) 6.0 11/11/23 15:19 Specific B[place] (Auto) 1.020 11/11/23 15:19 Urine Protein (Auto) 15 mg/dL 11/11/23 15:19 Glucose (UA)(Auto) 0 mg/dL 11/11/23 15:19 Urine Ketones (Auto) Negative 11/11/23 15:19 Urine Blood (Auto) 0 Gabriel/uL 11/11/23 15:19 Urine Nitrite (Auto) Negative 11/11/23 15:19 Urine Bilirubin (Auto) 0 mg/dL 11/11/23 15:19 Urine Urobilinogen (Auto) 0.2 mg/dL 11/11/23 15:19 Leukocyte Esterase (Auto) 0 Howard/uL 11/11/23 15:19 Assessment & Plan Assessment & Plan (1) Renal carcinoma: Comment: Right cryotherapy October 2018 Code(s): C64.9 - Malignant neoplasm of unspecified kidney, except renal pelvis Category: Medical Plan P.r.n. follow-up Orders: Orders AMB Urinalysis Automated 11/11/23 Z13.9 - Encounter for screening, unspecified Patient Instructions: Imaging studies, laboratory and physical exam results were discussed and reviewed in detail. No major barriers to patient understanding were identified. An opportunity to ask questions regarding the treatment plan was provided. All questions were answered. The patient expressed understanding and agreement with the above treatment plan. The patient is aware they should contact our office by phone for worsening of their current condition or the appearance of new urologic symptoms. Compliance is encouraged with any medications and followup testing that is ordered. It is a privilege to participate in the urologic care of your patient. If you have any questions or concerns regarding treatment for the above conditions, or other urologic issues, please do not hesitate to contact me. The office telephone contact is [phone]. This note is constructed using voice recognition software. While every effort has been made to ensure accuracy resident director errors may have been included. Yours sincerely, Dr Pedro Pablo Jerez MD, HOWARD [facility] - Urology Providers of Expert, Compassionate Care for the Genitourinary System Coding Level of Care Code Est Pt Level 4 (49284) Diagnoses Renal carcinoma C64.9
== END 2023-11-11 15:36 | disposition home or self-care (01) ==
PROVIDERS: PCP Internal Medicine; Visit Provider Urology
DX: N28.9 Disorder of kidney and ureter, unspecified (principal)
CPT/HCPCS: 99213

== ENCOUNTER → 2023-11-11 14:45 | Outpatient (BNVA) | payer MEDICARE, SELFPAY | PROVIDERS: PCP Internal Medicine; Visit Provider Urology | DX: C64.9 Malignant neoplasm of unspecified kidney, except renal pelvis (principal) | CPT/HCPCS: 81003; 99212 ==

== ENCOUNTER → 2023-11-27 09:52 | Outpatient (REF) | payer MEDICARE, SELFPAY ==
--- NOTE | 2023-11-27 09:54 | CA_ITS ---
Transthoracic Echocardiogram Patient (Last, First, Middle): Ruby Moses, Gender: Female Date of : 1955 Age: 68 Procedure Date: 11/27/2023 Procedure Type: Transthoracic Echocardiogram Location: OP Height: 165.1 cm Weight: 97.52 kg BSA: 2.04 m2 Heart Rate: bpm BP: 118 / 78 mmHg Rail Car Painter/Sandblaster: TO Referring MD: Og Lacy MD Symptoms: I10 - Essential (primary) hypertension Study Quality: Fair Conclusions: - Normal left ventricular size and systolic function. There is mildly increased left ventricular wall thickness. The visually estimated ejection fraction is between 60-65%. - Normal right ventricular cavity size and systolic function. There is a pacemaker wire seen in the right ventricle. - Normal global longitudinal strain. Findings Left Ventricle Normal left ventricular size and systolic function. There is mildly increased left ventricular wall thickness. The visually estimated ejection fraction is between 60-65%. There is no evidence of regional wall motion abnormalities. Diastolic function is indeterminate on the basis of available data. There is moderate septal asymmetric hypertrophy. Right Ventricle Normal right ventricular cavity size and systolic function. There is a pacemaker wire seen in the right ventricle. Atria The left atrium is normal in size. Aortic Valve Normal aortic valve structure and function. There is no aortic valve stenosis. There is no aortic valve regurgitation. Mitral Valve The mitral valve appears normal. There is no mitral valve regurgitation. There is no mitral valve stenosis. Pulmonic Valve The pulmonic valve is normal. There is no pulmonic valve regurgitation. Tricuspid Valve Normal tricuspid valve structure. There is mild tricuspid valve regurgitation. Normal right atrial pressure. There is no evidence of pulmonary hypertension. Great Vessels All visible segments of the aorta are normal in size. The visualized portions of the pulmonary artery and branches are normal. Venous The inferior vena cava is normal in size and collapses greater than 50% with inspiration. Pericardium/Pleural There is no evidence of pericardial effusion. Prior Study Comparison No significant change compared to prior study dated: 11/11/2021. Measurements 2D Linear Measurements IVSd: 1.32 0.6-0.9/0.6-1.0 cm LVIDd: 3.14 3.9-5.3/4.2-5.9 cm LVIDd Index: 1.54 2.4-3.2/2.2-3.1 cm/m2 LVIDs: 2.22 2.0-3.6 cm LVPWd: 0.91 0.7-1.1 cm LA Diam: 4.50 2.7-3.8/3.0-4.0 cm LAIDs Index: 2.21 1.5-2.3 cm/m2 LV Mass: 129.03 67-162/88-224 g LV Mass Index: 63.25 43-95/49-115 g/m2 LVOT Diam: 2.00 3.0+(-)1.3 cm 2D Systolic Function EF 4C: 66.20 >55% EF 2C: 64.00 >55% EF BiP: 63.80 >55% Mitral Valve MV Pk E: 0.61 MV PK A: 0.96 MV Decel Time: 137.00 E/A: 0.60 E'Lateral: 6.09 E'Medial: 4.24 E/E' Med: 14.30 E/E' Lat: 10.00 PHT: 40.00 MVA PHT: 5.50 Decel [place]: 4.45 Aortic Valve AoV Pk Juan Manuel: 1.46 AoV Mn Juan Manuel: 0.93 AoV VTI: 0.25 AoV Pk Grad: 9.00 Aov Mn Grad: 4.00 MULUGETA Cont.VTI: 2.84 LVOT LVOT Pk Juan Manuel: 1.16 LVOT Mn Juan Manuel: 0.71 LVOT VTI: 0.23 LVOT Pk Grad: 5.00 LVOT Mn Grad: 2.00 LVOT Diam: 2.00 LVOT Area: 3.14 Diastolic Function MV Pk E: 0.61 MV Pk A: 0.96 E/A: 0.60 E'Medial: 4.24 E/E' Med: 14.30 E' Laterial: 6.09 E/E' Lat: 10.00 Right Ventricle TAPSE (mm): 25.70 TVS' Juan Manuel: 11.00 Tricuspid Valve TR Pk Juan Manuel: 2.36 TR Pk Grad: 22.00 RA Press: 3.00 RVSP: 25.00 Great Vessels Aorta Sinus of Valsalva: 3.04 2.0-3.[address] [place]: 2.55 1.7-3.4 cm Ao Asc: 3.40 2.1-3.4 cm Updated in Other Vendor System with Status of Final Сергей Giles MD electronically signed on 11/29/2023 7:14:40 PM with status of Final
== END ==
LOC: HO.CARD 09:52
PROVIDERS: PCP Internal Medicine; Visit Provider Internal Medicine Cardiovascular Disease
DX: I10 Essential (primary) hypertension (principal)
CPT/HCPCS: 93306

== ENCOUNTER → 2023-11-27 09:54 | Outpatient (BNV) | payer MEDICARE, SELFPAY | PROVIDERS: PCP Internal Medicine; Visit Provider Internal Medicine Cardiovascular Disease | DX: I36.1 Nonrheumatic tricuspid (valve) insufficiency (principal); I42.2 Other hypertrophic cardiomyopathy | CPT/HCPCS: 93306; 93356 ==

== ENCOUNTER 2024-03-22 09:09 | Outpatient (REF) | payer MEDICARE, SELFPAY ==
[2024-03-22 10:50] LABS: Appearance Urine Clear; Color Urine Yellow; Glucose Urine UA Negative (Negative); Leukocyte Esterase Urine Negative (Negative); Nitrite Urine Negative (Negative); Urine Blood Negative (Negative); Urine Ketones Negative (Negative); Urine Protein Negative (Neg-Trace)
[2024-03-22 10:57] LABS: Bacteria Urine None Seen (None Seen); Hyaline Casts Urine 0-2 /LPF (0-2); RBC Urine 0-2 /HPF (0-2); Squamous Epithelial Cell Urine 0-2 /HPF (0-2); WBC Urine 0-5 /HPF (0-5)
[2024-03-22 11:00] LABS: MANUAL DIFF FLAG NO
[2024-03-22 11:02] LABS: Basophils Absolute Auto 0.1 X10*3/uL (0.0-0.2); Eosinophils Absolute Auto 0.1 X10*3/uL (0.0-0.4); Eosinophils Percent Auto 1.3 % (0-4); Hemoglobin 15.7 g/dl (12.0-16.0); Imm Gran Abs Auto 0.03 X10*3/uL (0.00-0.03); Imm Gran Pct Auto 0.3 % (0.0-0.4); Lymphocytes Absolute Auto 2.3 X10*3/uL (1.2-4.9); Lymphocytes Percent Auto 26.1 % (20-40); Mean Corpuscular HGB Conc 34.1 g/dl (31.0-35.0); Mean Corpuscular Hemoglobin 30.7 pg (27.0-33.0); Mean Corpuscular Volume 89.8 fL (80.0-98.0); Mean Platelet Volume 10.5 fL (9.4-12.3); Monocytes Absolute Auto 0.7 X10*3/uL (0.1-1.2); Monocytes Percent Auto 7.9 % (2-11); Neutrophils Absolute Auto 5.6 x10*3/uL (2.0-8.3); Neutrophils Percent Auto 63.4 % (45-73); Platelet Count 225 X10*3/uL (160-400); Red Blood Count 5.12 X10*6/uL (4.20-5.50); Red Cell Distribution Width 13.2 % (11.0-16.0); White Blood Count 8.8 X10*3/uL (4.8-10.8)
[2024-03-22 11:28] LABS: Alanine Aminotransferase 48 U/L (0-31); Albumin Level 4.4 g/dL (3.5-5.0); Alkaline Phosphatase 60 U/L (39-117); Anion Gap 10 (12-20); Aspartate Amino Transferase 31 U/L (5-31); Bilirubin Total 1.1 mg/dL (0.0-1.0); Blood Urea Nitrogen 22 mg/dL (9-16); Calcium 9.6 mg/dL (8.4-10.2); Carbon Dioxide 28 mmol/L (22-29); Chloride 105 mmol/L (96-108); Cholesterol 208 mg/dL (<200); Estimated Glomerular Filt Rate > 60; Glucose Fasting 106 mg/dL (60-99); HDL Cholesterol 40 mg/dL (>40); LDL Cholesterol Calculated 124 mg/dL (<100); Sodium 139 mmol/L (135-145); Total Protein 7.2 g/dL (6.5-8.0); Triglycerides 220 mg/dL (<150)
== END 2024-03-22 09:10 | disposition home or self-care (01) ==
LOC: HO.10HDL 09:09
PROVIDERS: Visit Provider Internal Medicine
DX: I10 Essential (primary) hypertension (principal); E78.00 Pure hypercholesterolemia, unspecified; R73.03 Prediabetes; K58.1 Irritable bowel syndrome with constipation; R30.0 Dysuria
CPT/HCPCS: 36415; 80053; 80061; 81001; 85025; 87086

== ENCOUNTER 2024-04-21 09:23 | Outpatient (REF) | payer MEDICARE, SELFPAY ==
--- NOTE | ~2024-04-21 | MM_ITS ---
EXAMINATION: MM SCREENING DIGITAL BREAST TOMOSYNTHESIS, BILATERAL CLINICAL INFORMATION: Screening. Asymptomatic. COMPARISON: Mammography: Comparison is made with available priors TECHNIQUE: Digital breast mammography with tomosynthesis is performed in both the craniocaudal and mediolateral oblique views along with computer-aided detection (CAD). FINDINGS: There are scattered areas of fibroglandular density (ACR BI-RADS breast composition Category b). Pacemaker overlies and obscures the superior posterior left breast on MLO view. Bilateral circumscribed oval masses which wax and wane consistent with benign fibrocystic changes. Left marker clip. There are no significant masses, abnormal calcifications, or other abnormalities. MM/MM tomosynthesis screening BI IMPRESSION: No mammographic evidence of malignancy. ASSESSMENT: BI-RADS BI-RADS 2 - Benign Findings RECOMMENDATION: Routine annual mammography screening. 1 year F/U This examination should not preclude the clinical evaluation of a suspicious palpable abnormality. This patient's information was entered into a reminder system with a target due date for their next mammogram. Electronically signed by: Dorcas Nuñez DO 04/21/2024 09:33 PM EST
== END 2024-04-21 09:24 | disposition home or self-care (01) ==
LOC: HO.MAMMO 09:23
PROVIDERS: Absent Provider Obstetrics & Gynecology Gynecology; PCP Internal Medicine; Visit Provider Internal Medicine
DX: Z12.31 Encounter for screening mammogram for malignant neoplasm of breast (principal)
CPT/HCPCS: 77063; 77067

== ENCOUNTER → 2024-04-21 09:30 | Outpatient (BNV) | payer MEDICARE, SELFPAY | PROVIDERS: Absent Provider Obstetrics & Gynecology Gynecology; PCP Internal Medicine; Visit Provider Internal Medicine | DX: Z12.31 Encounter for screening mammogram for malignant neoplasm of breast (principal) | CPT/HCPCS: 77063; 77067 ==

== ENCOUNTER 2024-05-03 09:58 | Outpatient (AMB) | payer MEDICARE, SELFPAY ==
--- NOTE | 2024-05-03 10:01 | A.OFFVIS_ITS ---
Vital Signs 05/03/24 10:02 Height 5 ft 5.5 in Weight 222 lb 10.67 oz BMI 36.5 BP 120/74 Blood Pressure Location Lt brachial Position Sitting Pulse 71 Intake Visit Reasons: 6 mth f/up Intake Note: 6 month follow-up with ekg and Medtronic Tag Press Operator Required: No Allergies adhesive tape [Adhesive Tape] Allergy (Intermediate, Verified 11/11/23 15:18) RASH/BLISTERS doxycycline [Doxycycline] Allergy (Intermediate, Verified 11/11/23 15:18) RASH/ITCH Statins Support Allergy (Intermediate, Uncoded 11/11/23 15:18) leg cramping Medication List - Last Reconciled 05/03/24 by Og Lacy MD amlodipine 5 mg PO DAILY aspirin (Adult Low Dose Aspirin) 81 mg PO DAILY atenolol 100 mg PO DAILY cholecalciferol (vitamin D3) 25 mcg PO DAILY lisinopril 20 mg PO DAILY omeprazole 20 mg PO DAILY vitamin B complex (B Complex-Vitamin B12 tablet) 1 tab PO DAILY HPI Comments Details: Ruby comes for follow-up. She denies any new cardiac symptoms extra for symptoms of fatigue. No lightheadedness, syncope. No prolonged palpitation irregular heartbeat. Takes all her medications. Her blood pressures been well controlled. She denies any orthopnea, PND, leg edema. No chest pain. [facility] Medical History Hiatal hernia GERD (gastroesophageal reflux disease) History of diverticulitis Arthritis HTN (hypertension) Cardiac pacemaker in situ Complete heart block Surgical History History of kidney surgery History of excision of Zenker's diverticulum Hx of appendectomy Hx of cholecystectomy Hx of colonoscopy Hx of blepharoplasty History of permanent cardiac pacemaker placement Hx of cardiac cath History of esophagogastroduodenoscopy (EGD) Family History Father No problems noted. Mother No problems noted. Social History Patient Tobacco Use Status: Never used Tobacco Advance Directives Date on File: 03/14/20 Review of Systems Const Denies chills, Denies fatigue, Denies fever(s), Denies frequent falls, Denies weakness, Denies weight gain and Denies weight loss ENT Denies dizziness Card Denies chest pain, Denies leg edema, Denies lightheadedness, Denies palpitations, Denies dyspnea, Denies dyspnea on exertion, Denies orthopnea and Denies other (loss of consciousness) Resp Denies cough, Denies dyspnea and Denies dyspnea on exertion GI Denies hematochezia and Denies change in stool character Musc Denies abnormal gait, Denies muscle weakness, Denies numbness, Denies radiating pain into limb and Denies tingling Neuro Denies abnormal gait, Denies dizziness, Denies frequent falls, Denies numbness, Denies tingling and Denies weakness Endo Denies fatigue and Denies palpitations Physical Exam Vital Signs: Last Vital Signs Pulse 71 05/03/24 10:02 BP 120/74 05/03/24 10:02 BMI result Body Mass Index 36.5 Const General: cooperative, comfortable, no acute distress, alert, awake and well groomed Nutritional Appearance: obese Orientation/consciousness: patient oriented x3 Limitations: no limitations Neck Neck: Yes trachea midline, Yes supple and Yes no JVD Resp Effort & Inspection: normal respiratory effort Auscultation: clear to auscultation bilaterally Cardio Jugular venous distension: no JVD Palpation: normal PMI Rate: regular rate Rhythm: regular rhythm Heart sounds: S1 normal heart sound present and S2 normal heart sound present GI Percussion: Yes normal to percussion Skin General skin exam: no rashes or lesions noted Neuro General: patient oriented x3 and no focal motor deficits Extrem General: Yes no clubbing, cyanosis or edema Psych Appearance: grossly normal Affect: Anxious affect present Office Procedures Cardiac Device Check Cardiac Device Check Details: Dual-chamber Medtronic pacemaker in place. Programmed in DDDR at 60 beats per minute. Ventricular pacing 100% of time. Atrial pacing about 50% of the time. Atrial sensing is excellent. Atrial ventricular pacing thresholds excellent. Pacing lead impedance is stable. Battery life is at about 11 months [id number] Cardiac Device Check, pacemaker dual lead Procedure code (CPT) selection complete EKG Details: EKG shows dual AV paced rhythm 12042-Bngtokgeycrgcegui, Complete Assessment & Plan Assessment & Plan (1) Cardiac pacemaker in situ: Comment: Dual-chamber Medtronic cardiac pacemaker, November 2014 Code(s): Z95.0 - Presence of cardiac pacemaker Category: Medical Plan: Dual-chamber pacemaker for complete heart block. Pacemaker is working well. Patient is pacer dependent. Battery life is at about 11 months. Will follow remotely. (2) HTN (hypertension): Code(s): I10 - Essential (primary) hypertension Category: Medical Plan: Hypertension which is extremely well optimized on current medication with amlodipine, atenolol as lisinopril. Importance of good blood pressure control was discussed. Her symptoms of fatigue appear to be related to deconditioning and weight. Advised to increase her activity level. She understands and agrees. Continue current therapy and advised to monitor blood pressure at home. Goal blood pressure less than 130/84. (3) Nonsustained ventricular tachycardia: Code(s): I47.2 - Ventricular tachycardia Category: Medical Plan: Nonsustained ventricular tachycardia without any clinical recurrence on pacer telemetry. Continue monitor. Continue atenolol therapy. Follow up in the clinic in 6 months time, sooner p.r.n.. Thank you for allowing me to partake in his Coding Level of Care Code Est Pt Level 4 (66367) Complex EM visit Add On G2211 Diagnoses Cardiac pacemaker in situ Z95.0 HTN (hypertension) I10 Nonsustained ventricular tachycardia I47.2 CPT Codes Cardiac Device Check - Cardiac Device 2: [id number] Cardiac Device Check, pace maker dual lead ([id number]) EKG - CPT: 09688-Nyrcyvqzjhxnglqfz, Complete ([id number])
[2024-05-03 10:02] VITALS: BP 120/74; PULSE 71; BMI 36.5
== END 2024-05-03 10:28 | disposition home or self-care (01) ==
PROVIDERS: PCP Internal Medicine; Visit Provider Internal Medicine Cardiovascular Disease
DX: I10 Essential (primary) hypertension (principal); I47.20 Ventricular tachycardia, unspecified; Z95.0 Presence of cardiac pacemaker
CPT/HCPCS: 93010; 93280; 99214; G2211

== ENCOUNTER → 2024-05-03 09:58 | Outpatient (BNVA) | payer MEDICARE, SELFPAY | PROVIDERS: PCP Internal Medicine; Visit Provider Internal Medicine Cardiovascular Disease | DX: I10 Essential (primary) hypertension (principal); I47.20 Ventricular tachycardia, unspecified; Z45.018 Encounter for adjustment and management of other part of cardiac pacemaker | CPT/HCPCS: 93005; 93280; 99212 ==

== ENCOUNTER 2024-11-01 12:57 | Outpatient (AMB) | payer MEDICARE, SELFPAY ==
--- OUTSIDE RECORDS SUMMARY | 2024-11-01 13:01 | XMS_ITS | Patient Health Record ---
Author Organization [facility] Address [address] [place] [address] Care Team Providers Care Packaging Inspector Name Role Phone Emigdio Knox MD Primary Care Provider Johnnie Live Unavailable [phone] Allergies Allergen (clinical drug ingredient) Drug/Non Drug Allergy documented on EMR Reaction Allergy Type Onset Date Status doxycycline Doxycycline Hyclate rash/itch Drug Allergy Active Adhesive Tape rash/itch Drug Allergy Act jyotsna Reason For Referral No Information Medications Medication SIG (Take, Route, Frequency, Duration) Notes Start Date End Date Status Physical Therapy . . . 2-3x/week for 3- 4 weeks Active Physical Therapy . . . 2-3x/week for 3- 4 weeks Not-Taking Night Splint AFO - L1930 as directed Active Cipro Not-Taking Vitamin D Active Vitamin B12 Active Omeprazole 20 MG TAKE ONE CAPSULE BY MOUTH EVERY DAY Oral for 90 Active Azithromycin 250 MG TAKE 2 TABLETS BY [facility] TODAY, THEN TAKE 1 TABLET DAILY FOR 4 DAYS Oral for 5 Not-Taking Lisinopril 20 MG 1 tablet Orally Once a day Active Econazole Nitrate 1 % 1 application to affected area Externally Once a day for 30 days 08/22/2015 Not-Taking Baby Aspirin Active Atenolol 100 MG TAKE 1 TABLET BY SARAH ONCE DAILY Oral for 90 Active Econazole Nitrate 1 % 1 application to affected area Externally Once a day for 30 days 02/15/2015 Not-Taking amLODIPine Besylate 5 MG 1 tablet Orally Once a day for 30 day(s) Active [employer] Orthotics as directed N ot-Taking Atorvastatin Calcium 40 MG TAKE 1 TABLET BY MOUTH DAILY AT BEDTIME Oral for 30 Not-Taking Immunizations Vaccine Route Administration Date Status Comme nts COVID-19 Pfizer BioNTech Vaccine Unknown 09/22/2020 Adm inistered 1st 08/30/20 Influenza Unknown 04/21/2022 Administered Social History Tobacco Use: Social History Observation Description Date Details (start date - stop date) Never Smoker NA - NA Tobacco Use/Smoking Question Answer Notes Are you a: nonsmoker Additional Findings: Tobacco Non-User Current no n-smoker Alcohol Screen Question Answer Notes Did you have a drink contain ing alcohol in the past year? Yes How often did you have a dri nk containing alcohol in the past year? Monthly or less (1 point) Points 1 Interpretation Negative Tobacco use other than smoking: Question Answer Notes Are you an other tobacco user? No Problems Problem Type SNOMED Code ICD Code Onset Dates Problem Status W/U Status Risk Notes Problem Hallux valgus (acquired), left foot (M20.12) Active confirmed Problem Localized, primary osteoarthritis of the ankle and/or foot (366725276) Primary osteoarthritis, right ankle and foot (M19.071) Active confirmed Problem Acquired hallux valgus (03471509) Hallux valgus (acquired), right foot (M20.11) Active confirmed Problem Pain in limb (87536673) Pain in unspecified foot (M79.673) Active confirmed Problem [id number] Raynaud's disease without gangrene (I73.00) Active confirmed Plan Of Treatment Pending Test Test Name Order Date X ray : Foot, left 2V 02/15/2015 X ray : Foot, left 2V 02/17/2018 X ray : Foot, right 2V 02/15/2015 *Liver Function Test (LFT) 02/15/2015 X ray : Foot, right 3V 02/19/2022 [id number] TENDON SHEATH/LIGAMENT 1 X ray : Ankle, right 3V 02/19/2022 Insurance Providers Payer Name Payer Address Payer Phone Subscriber Number Group Number Insured Name Patient Relationship to Insured Coverage Start Date Coverage End Date Medicare National Govt Svcs Inc [address] [place] [address] [id number] Ruby Moses Self - patient is the insured [employer] [address] [place] [address] [phone] [id number] Ruby Moses Self - patient is the insured Medical (General) History Medical History History ICD Code Arthritis Back,Hip,and Knee pain Diverticulosis Headaches High blood pressure Reflux chronic sinusitis Angina Headaches/Migraines Sciatica Measles Mumps Surgical History Surgery Date(Month/Year) cholecystectomy appendectomy cardiac pacemeker 11/15/2014 zenker's diverticulum repair 01/06/2018 Hospitalization History Reason Date(Month/Year) admitted to [facility] for a week for chest miguel n 01/2015
[2024-11-01 13:08] VITALS: BP 110/70; PULSE 68; BMI 35.0
--- NOTE | 2024-11-01 13:08 | MHC.OFFVIS ---
Vital Signs 11/01/24 13:08 Height 5 ft 5.5 in Weight 213 lb 13.574 oz BMI 35.0 BP 110/70 Blood Pressure Location Lt brachial Position Sitting Pulse 68 Intake Visit Reasons: 6m follow up w pacer ck Intake Note: 6 month follow-up with Medtronic check feeling good Oil Agent Required: No Allergies adhesive tape [Adhesive Tape] Allergy (Intermediate, Verified 11/11/23 15:18) RASH/BLISTERS doxycycline [Doxycycline] Allergy (Intermediate, Verified 11/11/23 15:18) RASH/ITCH Statins Support Allergy (Intermediate, Uncoded 11/11/23 15:18) leg cramping Medication List - Last Reconciled 11/01/24 by Og Lacy MD amlodipine 5 mg PO DAILY aspirin (Adult Low Dose Aspirin) 81 mg PO DAILY atenolol 100 mg PO DAILY cholecalciferol (vitamin D3) 25 mcg PO DAILY lisinopril 20 mg PO DAILY omeprazole 20 mg PO DAILY vitamin B complex (B Complex-Vitamin B12 tablet) 1 tab PO DAILY HPI Comments Details: Ruby comes for follow-up. She is not having any active cardiac symptoms. Denies any lightheadedness, syncope. She noted 1 episode of palpitation on October 20. This is on pacer telemetry correlates with nonsustained ventricular tachycardia. She denies any exertional chest pain or shortness of breath. She says she feels fatigue as she is currently not been able to use his CPAP machine which she forgot unfortunately in [place]. Her blood pressures been otherwise well controlled. [facility] Medical History Hiatal hernia GERD (gastroesophageal reflux disease) History of diverticulitis Arthritis HTN (hypertension) Cardiac pacemaker in situ Complete heart block Surgical History History of kidney surgery History of excision of Zenker's diverticulum Hx of appendectomy Hx of cholecystectomy Hx of colonoscopy Hx of blepharoplasty History of permanent cardiac pacemaker placement Hx of cardiac cath History of esophagogastroduodenoscopy (EGD) Family History Father No problems noted. Mother No problems noted. Social History Patient Tobacco Use Status: Never used Tobacco Advance Directives Date on File: 03/14/20 Review of Systems Const Denies chills, Denies fatigue, Denies fever(s), Denies frequent falls, Denies weakness, Denies weight gain and Denies weight loss ENT Denies dizziness Card Denies chest pain, Denies leg edema, Denies lightheadedness, Denies palpitations, Denies dyspnea, Denies dyspnea on exertion, Denies orthopnea and Denies other (loss of consciousness) Resp Denies cough, Denies dyspnea and Denies dyspnea on exertion GI Denies hematochezia and Denies change in stool character Musc Denies abnormal gait, Denies muscle weakness, Denies numbness, Denies radiating pain into limb and Denies tingling Neuro Denies abnormal gait, Denies dizziness, Denies frequent falls, Denies numbness, Denies tingling and Denies weakness Endo Denies fatigue and Denies palpitations Physical Exam Vital Signs: Last Vital Signs Pulse 68 11/01/24 13:08 BP 110/70 11/01/24 13:08 BMI result Body Mass Index 35.0 Const General: cooperative, comfortable, no acute distress, alert, awake and well groomed Nutritional Appearance: obese Orientation/consciousness: patient oriented x3 Limitations: no limitations Neck Neck: Yes trachea midline, Yes supple and Yes no JVD Resp Effort & Inspection: normal respiratory effort Auscultation: clear to auscultation bilaterally Cardio Jugular venous distension: no JVD Palpation: normal PMI Rate: regular rate Rhythm: regular rhythm Heart sounds: S1 normal heart sound present and S2 normal heart sound present GI Percussion: Yes normal to percussion Skin General skin exam: no rashes or lesions noted Neuro General: patient oriented x3 and no focal motor deficits Extrem General: Yes no clubbing, cyanosis or edema Psych Appearance: grossly normal Affect: Anxious affect present Office Procedures Cardiac Device Check Cardiac Device Check Details: Dual-chamber Medtronic pacemaker in place. Programmed in DDDR at 60 beats per minute. Atrial pacing 60% of the time. Ventricular pacing 100% of the time. Patient ventricularly pacer dependent. Atrial sensing is adequate. Ventricular sensing could not be checked. Atrial ventricular pacing lead impedance is stable. Battery life is at about 5 months. One episode [place]ust[place] [id number] Cardiac Device Check, pacemaker dual lead Procedure code (CPT) selection complete Assessment & Plan Assessment & Plan (1) Cardiac pacemaker in situ: Comment: Dual-chamber Medtronic cardiac pacemaker, November 2014 Code(s): Z95.0 - Presence of cardiac pacemaker Category: Medical Plan: Cardiac pacemaker in-situ for complete heart block. Patient pacer dependent. Continue current monitoring. Will check in 3 months time due to lower battery life to assess for battery status. Symptoms of (2) Nonsustained ventricular tachycardia: Code(s): I47.2 - Ventricular tachycardia Category: Medical Plan: Nonsustained ventricular tachycardia with normal LV ejection fraction. Continue atenolol therapy. Avoidance of stimulants was discussed. Advised to call me with worsening symptoms. Will continue monitor by pacer telemetry (3) HTN (hypertension): Code(s): I10 - Essential (primary) hypertension Category: Medical Plan: Hypertension which is currently well optimized advised to monitor blood pressure at home and maintain a log. Goal blood pressure less than 130/84. Low-salt diet was discussed. Will follow up in the clinic 3 months for pacer check only Coding Level of Care Code Est Pt Level 4 (67429) Complex EM visit Add On G2211 Diagnoses Cardiac pacemaker in situ Z95.0 Nonsustained ventricular tachycardia I47.2 HTN (hypertension) I10 CPT Codes Cardiac Device Check - Cardiac Device 2: [id number] Cardiac Device Check, pacemaker dual lead ([id number])
== END 2024-11-01 13:39 | disposition home or self-care (01) ==
LOC: HO.HCS 12:58
PROVIDERS: PCP Internal Medicine; Visit Provider Internal Medicine Cardiovascular Disease
DX: I47.20 Ventricular tachycardia, unspecified (principal); Z95.0 Presence of cardiac pacemaker; I10 Essential (primary) hypertension
CPT/HCPCS: 93280; 99214; G2211

== ENCOUNTER → 2024-11-01 12:57 | Outpatient (BNVA) | payer MEDICARE, SELFPAY | PROVIDERS: PCP Internal Medicine; Visit Provider Internal Medicine Cardiovascular Disease | DX: I10 Essential (primary) hypertension (principal); I47.20 Ventricular tachycardia, unspecified; Z45.018 Encounter for adjustment and management of other part of cardiac pacemaker | CPT/HCPCS: 93280; 99212 ==

== ENCOUNTER 2024-11-21 07:52 | Outpatient (AMB) | payer MEDICARE, SELFPAY ==
--- OUTSIDE RECORDS SUMMARY | 2024-11-21 07:56 | XMS_ITS | Patient Health Record ---
Author Organization [facility] Address [address] [place] [address] Care Team Providers Care Cutter Operator Asbestos Shingle Name Role Phone Emigdio Knox MD Primary Care Provider Johnnie Live Unavailable [phone] Allergies Allergen (clinical drug ingredient) Drug/Non Drug [...] 250 MG TAKE 2 TABLETS BY [facility] TODAY, THEN TAKE 1 TABLET DAILY FOR [...] Problem Status W/U Status Risk Notes Problem Acquired hallux valgus (72868058) Hallux valgus (acquired), left foot (M20.12) Active confirmed Problem Primary osteoarthritis, right ankle and foot (M19.071) Active confirmed Problem Acquired hallux valgus (62134756) Hallux valgus (acquired), right foot (M20.11) Active confirmed Problem Pain in limb (35408345) Pain in unspecified foot (M79.673) Active confirmed Problem [id number] Raynaud's disease without gangrene (I73.00) Active confirmed Plan Of Treatment Pending Test Test Name Order Date X ray : Foot, left 2V 02/15/2015 X ray : Foot, left 2V 02/17/2018 X ray : Foot, right 2V 02/15/2015 *Liver Function Test (LFT) 02/15/2015 X ray : Foot, right 3V 02/19/2022 [id number] TENDON SHEATH/LIGAMENT 1 X ray : Ankle, right 3V 02/19/2022 Insurance Providers Payer Name Payer Address Payer Phone Subscriber Number Group Number Insured Name Patient Relationship to Insured Coverage Start Date Coverage End Date Medicare National Govt Svcs Inc [address] [place] [address] [id number] Ruby Moses Self - patient is the insured [employer] [facility] [address] [place] [address] [phone] [id number] Ruby Moses Self - patient is the insured Medical (General) History Medical History History ICD Code Arthritis Back,Hip,and Knee pain Diverticulosis Headaches High blood pressure Reflux chronic sinusitis Angina Headaches/Migraines Sciatica Measles Mumps Surgical History Surgery Date(Month/Year) cholecystectomy appendectomy cardiac pacemeker 11/15/2014 zenker's diverticulum repair 01/06/2018 Hospitalization History Reason Date(Month/Year) admitted to [facility] for a week for chest miguel n 01/2015
--- NOTE | 2024-11-21 07:57 | MHC.PC.OV ---
Vital Signs 11/21/24 08:01 Height 5 ft 5.5 in Weight 97.069 kg BMI 35.1 BP 130/82 Respiration 18 Pulse 71 Pulse Source Pulse Oximeter Temp 98.0 F Temp Source Temporal Artery Scan Pulse Oximetry (%) 97 Oxygen Delivery Method Room Air Intake Visit Reasons: 3 mo f/u Receiving Lead Required: No Accompanied by: Self / Same As Patient Allergies adhesive tape [Adhesive Tape] Allergy (Intermediate, Verified 11/21/24 07:58) RASH/BLISTERS doxycycline [Doxycycline] Allergy (Intermediate, Verified 11/21/24 07:58) RASH/ITCH Statins Support Allergy (Intermediate, Uncoded 11/21/24 07:58) leg cramping HPI HPI Comments History of Present Illness Details 69-year-old female with history of hypertension, complete heart block s/p pacemaker, osteoarthritis, GERD, renal cell carcinoma presents to the office today for management of chronic conditions and to establish care. Hypertension-managed with atenolol 100 mg daily, amlodipine 5 mg, lisinopril 20 mg daily. Blood pressure in the office Renal cell carcinoma-diagnosed 03/26. Initial therapy cryotherapy with follow-up CT 03/27 showing bilateral small complex cyst. 10/2020 renal ultrasound stable bilateral renal cysts. Renal function has been stable. Following with Dr. Jerez in Urology for imaging surveillance Complete heart block-s/p pacemaker. Follows with Dr. Lacy in Cardiology. No near-syncope, syncope, shortness of breath, chest pain. Obstructive sleep apnea-compliant with CPAP Concerns: Chronic back pain- going to chiropractor. Chiro requesting neck xray due to left cervical radiculopathy ongoing for years. Chronic R bip pain radiating from back. Chiro is helping Malodorous urine- longstanding Health maintenance: Mammo-04/2024, no malignancy, 1 year follow-up Overdue for DEXA ROS: General: No fevers, malaise, unintentional weight loss HEENT: No blurred vision, diplopia. No sore throat, nasal congestion, rhinorrhea, sinus pain, ear pain Cardiovascular: No chest pain, palpitations, or leg edema Respiratory: No shortness of breath, wheezing, cough GI: No abdominal pain, nausea, vomiting, diarrhea, constipation, melena, hematochezia : No dysuria, hematuria, increased urinary frequency, decreased urinary output MSK: See HPI Neuro: See HPI Skin: No rashes or lesions EXAM: Constitutional - Awake and Alert, No apparent distress Eyes - PERRL Cardiovascular - S1S2, RRR, No edema Respiratory - Normal lung expansion, Normal respiratory effort, No respiratory distress, CTA bilaterally Extremities - no calf tenderness bilaterally, no swelling MSK - midline tenderness to palpation cervical and lumbar spine Skin - Warm/Dry Neurological - Alert & oriented x3, 5/5 strength BUE BLE, sensation intact Psychological - Appropriate affect [facility] Medical History (Updated 11/21/24 @ 08:20 by TIANA Jacobs) Obstructive sleep apnea Hyperlipemia Hiatal hernia GERD (gastroesophageal reflux disease) History of diverticulitis Arthritis HTN (hypertension) Cardiac pacemaker in situ Complete heart block Surgical History (Updated 11/18/24 @ 10:16 by Sienna Beatty) History of kidney surgery History of excision of Zenker's diverticulum Hx of appendectomy Hx of cholecystectomy Hx of colonoscopy (~12/19/20) Hx of blepharoplasty History of permanent cardiac pacemaker placement Hx of cardiac cath History of esophagogastroduodenoscopy (EGD) Family History Father No problems noted. Mother No problems noted. Social History Patient Tobacco Use Status: Never used Tobacco Advance Directives Date on File: 03/14/20 Questionnaire PHQ-9 Over the last 2 weeks, how often have you been bothered by any of the following problems? 1. Little interest or pleasure in doing things: several days 2. Feeling down, depressed, or hopeless: not at all 3. Trouble falling or staying asleep, or sleeping too much: not at all 4. Feeling tired or having little energy: several days 5. Poor appetite or overeating: not at all 6. Feeling bad about yourself - or that you are a failure or have let yourself or your family down: several days 7. Trouble concentrating on things, such as reading the newspaper or watching television: not at all 8. Moving or speaking so slowly that other people could have noticed. Or the opposite - being so fidgety or restless that you have been moving around a lot more than usual: not at all 9. Thoughts that you would be better off or of hurting yourself in some way: not at all Total score: 3 Source: Developed by Drs. Vito Ortiz, Jean Marie Ponce and colleagues, with an educational sundar from [employer]. Thrive Questionnaire Date Thrive assessed: 11/21/24 I am a: Patient What is your living situation today?: I have a steady place to live Within the past 12 months, did the food you bought not last and you didn't have the money to get more?: Never true Within the past 12 months, did you worry whether your food would run out before you got money to buy more?: Never true Do you have trouble paying for medicines?: No Do you have trouble getting transportation to medical appointments?: No Do you have trouble paying your heating and electricity bill?: No Do you have trouble taking care of your child, family member or friend?: No Do you have trouble with day-to-day activities such as bathing, preparing meals, shopping, managing finances, etc.?: No Are you currently unemployed and looking for a job?: No Are you interested in more education?: No Please select the resources that you would like help with: None THRIVE Score: 0 GHADA-7 AMB Questionnaire GHADA-7 Date GHADA - 7 assessed: 11/21/24 Feeling nervous, anxious, or on edge: 0 = Not at all Not being able to stop or control worryin = Not at all Worrying too much about different things: 0 = Not at all Trouble relaxin = Not at all Being so restless that it is hard to sit still: 0 = Not at all Becoming easily annoyed or irritable: 0 = Not at all Feeling afraid as if something awful might happen: 0 = Not at all Total GHADA-7 score (0-4 normal; 5-9 mild; 10-14 moderate; 15-21 severe): 0 Source: Developed by Drs. Vito Ortiz, Jean Marie Ponce and colleagues, with an educational sundar from [employer]. Physical exam (Primary Care) Vital Signs: Last Vital Signs Temp 98.0 F 11/21/24 08:01 Pulse 71 11/21/24 08:01 Resp 18 11/21/24 08:01 BP 130/82 11/21/24 08:01 Pulse Ox 97 11/21/24 08:01 Oxygen Delivery Method Room Air 11/21/24 08:01 BMI result Body Mass Index 35.1 Tobacco/Smoking Status: Tobacco use Status Patient Tobacco Use Status Never used Tobacco 11/21/24 07:58 Coding Level of Care Code New Pt Level 4 (91431) Complex EM visit Add On G2211 Diagnoses Obstructive sleep apnea G47.33 HTN (hypertension) I10 Renal carcinoma C64.9 Hyperlipemia E78.5 Cervical radicular pain M54.12 Assessment & Plan Assessment & Plan (1) Obstructive sleep apnea: Code(s): G47.33 - Obstructive sleep apnea (adult) (pediatric) Category: Medical Plan: Continue CPAP. Weight loss effort (2) HTN (hypertension): Code(s): I10 - Essential (primary) hypertension Category: Medical Plan: Controlled. Continue amlodipine, atenolol, lisinopril. Low-sodium diet (3) Renal carcinoma: Comment: Right cryotherapy October 2018 Code(s): C64.9 - Malignant neoplasm of unspecified kidney, except renal pelvis Category: Medical Plan: Urology report reviewed, in remission. Continue following for surveillance (4) Hyperlipemia: Code(s): E78.5 - Hyperlipidemia, unspecified Category: Medical Plan: Lipid panel ordered. Recommend diet low in saturated fat and highly processed oils. We will consider adding statin pending results of studies (5) Cervical radicular pain: Code(s): M54.12 - Radiculopathy, cervical region Category: Medical Plan: X-ray cervical spine ordered. Continue following with chiropractic. Plan Follow-up in 4 months. Labs to be completed following visit today X-ray cervical spine [id number] with chiropractic Continue following with specialists Urinalysis and BV panel ordered for evaluation of malodorous urine/discharge Health maintenance as ordered, add vitamin-D Orders: Orders XR cervical spine 2V Today M54.12 - Radiculopathy, cervical region Bacterial Vaginosis Panel Today R82.90 - Unspecified abnormal findings in urine Basic Metabolic Panel Today E78.5 - Hyperlipidemia, unspecified, I10 - Essential (primary) hypertension, R74.8 - Abnormal levels of other serum enzymes, Z95.0 - Presence of cardiac pacemaker Hemoglobin A1c Today E78.5 - Hyperlipidemia, unspecified, I10 - Essential (primary) hypertension, R74.8 - Abnormal levels of other serum enzymes, Z95.0 - Presence of cardiac pacemaker Lipid Panel Today E78.5 - Hyperlipidemia, unspecified, I10 - Essential (primary) hypertension, R74.8 - Abnormal levels of other serum enzymes, Z95.0 - Presence of cardiac pacemaker Liver Panel Today E78.5 - Hyperlipidemia, unspecified, I10 - Essential (primary) hypertension, R74.8 - Abnormal levels of other serum enzymes, Z95.0 - Presence of cardiac pacemaker Vitamin D 25-OH Total Today E78.5 - Hyperlipidemia, unspecified, I10 - Essential (primary) hypertension, R74.8 - Abnormal levels of other serum enzymes, Z95.0 - Presence of cardiac pacemaker UA CC w/rflx Micro + Cult Today R82.90 - Unspecified abnormal findings in urine XR DEXA appendicular skeleton Today Z78.0 - Asymptomatic menopausal state
[2024-11-21 08:01] VITALS: BP 130/82; PULSE 71; RESP 18; TEMP 36.7; O2SAT 97; BMI 35.1
== END 2024-11-21 08:21 | disposition home or self-care (01) ==
LOC: HO.HMCHD 07:53
PROVIDERS: PCP Physician Assistant; Visit Provider Physician Assistant
DX: G47.33 Obstructive sleep apnea (adult) (pediatric) (principal); I10 Essential (primary) hypertension; C64.9 Malignant neoplasm of unspecified kidney, except renal pelvis; E78.5 Hyperlipidemia, unspecified; M54.12 Radiculopathy, cervical region

== ENCOUNTER 2024-11-21 07:52 | Outpatient (REF) | payer MEDICARE, SELFPAY ==
--- NOTE | ~2024-11-21 | XR_ITS ---
CLINICAL HISTORY: M54.12 - Radiculopathy, cervical region 3 views cervical spine Comparison: None Findings: Normal alignment. No acute fractures or dislocation. No significant degenerative change. Prevertebral soft tissues within normal limits. IMPRESSION: No acute findings. This document has been electronically signed by: Reinaldo Lange MD on 11/21/2024 11:29:32
[2024-11-21 09:20] LABS: Estimated Average Glucose 120 mg/dL; Hemoglobin A1c % 5.8 % (<6.0)
[2024-11-21 09:46] LABS: Alanine Aminotransferase 53 U/L (0-31); Albumin Level 4.5 g/dL (3.5-5.0); Alkaline Phosphatase 56 U/L (39-117); Anion Gap 10 (12-20); Aspartate Amino Transferase 36 U/L (5-31); Bilirubin Direct 0.3 mg/dL (0.0-0.5); Bilirubin Total 0.9 mg/dL (0.0-1.0); Blood Urea Nitrogen 23 mg/dL (9-16); Calcium 9.5 mg/dL (8.4-10.2); Carbon Dioxide 27 mmol/L (22-29); Chloride 107 mmol/L (96-108); Cholesterol 196 mg/dL (<200); Estimated Glomerular Filt Rate > 60; Glucose Random 110 mg/dL (60-115); HDL Cholesterol 40 mg/dL (>40); LDL Cholesterol Calculated 123 mg/dL (<100); Potassium 4.2 mmol/L (3.3-5.1); Sodium 140 mmol/L (135-145); Total Protein 7.2 g/dL (6.5-8.0); Triglycerides 166 mg/dL (<150)
[2024-11-21 09:57] LABS: Appearance Urine Clear; Color Urine Yellow; Glucose Urine UA Negative (Negative); Leukocyte Esterase Urine Trace (Negative); Nitrite Urine Negative (Negative); PH 6.5 (5.0-9.0); Specific Gravity - Urine 1.025 (1.005-1.025); UMIC TRIGGER UACC YES; Urine Blood Negative (Negative); Urine Ketones Negative (Negative); Urine Protein Negative (Neg-Trace)
[2024-11-21 10:03] LABS: Bacteria Urine None Seen (None Seen); Hyaline Casts Urine 0-2 /LPF (0-2); RBC Urine 0-2 /HPF (0-2); Squamous Epithelial Cell Urine 0-2 /HPF (0-2); WBC Urine 0-5 /HPF (0-5)
[2024-11-21 10:03] LABS: Vitamin D 25-OH Total 30.8 ng/mL (>30)
== END 2024-11-21 07:53 | disposition home or self-care (01) ==
LOC: HO.XRAY 07:52
PROVIDERS: PCP Internal Medicine; Visit Provider Physician Assistant
DX: I10 Essential (primary) hypertension (principal); G47.33 Obstructive sleep apnea (adult) (pediatric); C64.9 Malignant neoplasm of unspecified kidney, except renal pelvis; E78.5 Hyperlipidemia, unspecified; M54.12 Radiculopathy, cervical region; R74.8 Abnormal levels of other serum enzymes; Z85.528 Personal history of other malignant neoplasm of kidney; Z79.899 Other long term (current) drug therapy; Z99.89 Dependence on other enabling machines and devices; Z95.0 Presence of cardiac pacemaker; Z13.30 Encounter for screening examination for mental health and behavioral disorders, unspecified
CPT/HCPCS: 36415; 72040; 80048; 80061; 80076; 81001; 82306; 83036; 96127; 99202

== ENCOUNTER → 2024-11-21 23:59 | Outpatient (BNV) | payer MEDICARE, SELFPAY ==
--- NOTE | 2024-12-05 12:15 | MHC.OFFVIS ---
Intake Visit Reasons: Remote device check- Medtronic Allergies adhesive tape (Adhesive Tape) Allergy (Intermediate, Verified 11/21/24 07:58) RASH/BLISTERS doxycycline (Doxycycline) Allergy (Intermediate, Verified 11/21/24 07:58) RASH/ITCH Statins Support Allergy (Intermediate, Uncoded 11/21/24 07:58) leg cramping PFSH Medical History (Updated 11/21/24 @ 08:20 by TIANA Jacobs) Obstructive sleep apnea Hyperlipemia Hiatal hernia GERD (gastroesophageal reflux disease) History of diverticulitis Arthritis HTN (hypertension) Cardiac pacemaker in situ Complete heart block Surgical History (Updated 11/18/24 @ 10:16 by Sienna Beatty) History of kidney surgery History of excision of Zenker's diverticulum Hx of appendectomy Hx of cholecystectomy Hx of colonoscopy (~12/19/20) Hx of blepharoplasty History of permanent cardiac pacemaker placement Hx of cardiac cath History of esophagogastroduodenoscopy (EGD) Family History Father No problems noted. Mother No problems noted. Social History Patient Tobacco Use Status: Never used Tobacco Advance Directives Date on File: 03/14/20 Office Procedures Cardiac Device Check Cardiac Device Check Details: Remote pacemaker report generated 11/21/2024. Pacemaker function is adequate [id number] Cardiac Device Interrogation, pacemaker Procedure code (CPT) selection complete Assessment & Plan Assessment & Plan (1) Cardiac pacemaker in situ: Comment: Dual-chamber Medtronic cardiac pacemaker, November 2014 Code(s): Z95.0 - Presence of cardiac pacemaker Category: Medical Plan: See above Coding Level of Care Code Procedure Only Diagnoses Cardiac pacemaker in situ Z95.0 CPT Codes Cardiac Device Check - Cardiac Device 12: [id number] Cardiac Device Interrogation, pacemaker ([id number])
== END ==
PROVIDERS: PCP Physician Assistant; Visit Provider Internal Medicine Cardiovascular Disease
DX: Z45.018 Encounter for adjustment and management of other part of cardiac pacemaker (principal)
CPT/HCPCS: 93294

== ENCOUNTER 2024-11-30 12:41 | Outpatient (REF) | payer MEDICARE, SELFPAY ==
--- NOTE | ~2024-11-30 | MM_ITS ---
EXAMINATION: DXA BONE DENSITY AXIAL HISTORY: Z78.0 - Asymptomatic menopausal state TECHNIQUE: [employer] Dual energy absorptiometry (DEXA) of the lumbar spine, total left hip, and femoral neck was performed. COMPARISON: Comparison is made with the prior examination dated 11/17/2018. FINDINGS: The bone mineral density of the lumbar spine is 1.152, corresponding to a T-score of -0.2, and a Z-score of 0.4. This is indicative of normal bone mineral density. This represents a BMD change of -0.3% compared to the prior exam. This is not statistically significant. The bone mineral density of the left total hip is 1.009, corresponding to a T-score of 0.0, and a Z-score of 0.8. This is indicative of normal bone mineral density. This represents a BMD change of -2.9% compared to the prior exam. This is not statistically significant. The bone mineral density of the left femoral neck is 0.869, corresponding to a T-score of -1.2, and a Z-score of -0.2. This is indicative of osteopenia. This represents a BMD change of -0.5% compared to the prior exam. FRACTURE RISK: The FRAX index suggests a ten year probability of major osteoporotic fracture of 20.9%, and of hip fracture 4.3%. MM/XR DEXA axial skeleton IMPRESSION: Based on bone mineral density, and according to World Health Organization (WHO) criteria, the diagnosis is consistent with osteopenia. All bone density values are in grams per centimeter squared (g/cm2). Statistically, 68% of repeat scans fall within 1 SD (+/- 0.010 g/cm2 for AP spine L1-L4) and 1 SD (+/- 0.012 g/cm2 for femur total) FRAX is a trademark of the [employer]'s [place] for Metabolic Bone Disease, a World Health Organization (WHO) Collaborating Center. Electronically signed by: Vito Thakur MD 11/30/2024 01:22 PM EDT
--- OUTSIDE RECORDS SUMMARY | 2024-11-30 14:42 | XMS_ITS | Patient Health Record ---
Author Organization [facility] Address [address] [place] [address] Care Team Providers Care Lastex Operator Name Role Phone Emigdio Knox MD Primary Care Provider Johnnie Live Unavailable [phone] Allergies Allergen (clinical drug ingredient) Drug/Non Drug [...] 250 MG TAKE 2 TABLETS BY MO [facility] TODAY, THEN TAKE 1 TABLET DAILY FOR [...] Status Risk Notes Problem Acquired hallux valgus (07607151) Hallux valgus (acquired), left foot (M20.12) Active confirmed Problem Localized, primary osteoarthritis of the ankle and/or foot (760791997) Primary osteoarthritis, right ankle and foot (M19.071) Active confirmed Problem Acquired hallux valgus (25930509) Hallux valgus (acquired), right foot (M20.11) Active confirmed Problem Pain in limb (55877918) Pain in unspecified foot (M79.673) Active confirmed Problem 882172949 Raynaud's disease without gangrene (I73.00) Active confirmed Plan Of Treatment Pending Test Test Name Order Date X ray : Foot, left 2V 02/15/2015 X ray : Foot, left 2V 02/17/2018 X ray : Foot, right 2V 02/15/2015 *Liver Function Test (LFT) 02/15/2015 X ray : Foot, right 3V 02/19/2022 [id number] TENDON SHEATH/LIGAMENT 1 X ray : Ankle, right 3V 02/19/2022 Insurance Providers Payer Name Payer Address Payer Phone Subscriber Number Group Number Insured Name Patient Relationship to Insured Coverage Start Date Coverage End Date Medicare National Govt Svcs Inc [address] [place] [address] [id number] Ruby Moses Self - patient is the insured [employer] [place] [address] [place] [address] [phone] [id number] Rbuy Moses Self - patient is the insured Medical (General) History Medical History History ICD Code Arthritis Back,Hip,and Knee pain Diverticulosis Headaches High blood pressure Reflux chronic sinusitis Angina Headaches/Migraines Sciatica Measles Mumps Surgical History Surgery Date(Month/Year) cholecystectomy appendectomy cardiac pacemeker 11/15/2014 zenker's diverticulum repair 01/06/2018 Hospitalization History Reason Date(Month/Year) admitted to [facility] [place] for a week for chest miguel n 01/2015
== END 2024-11-30 12:42 | disposition home or self-care (01) ==
LOC: HO.MAMMO 12:41
PROVIDERS: PCP Physician Assistant; Visit Provider Physician Assistant
DX: Z13.820 Encounter for screening for osteoporosis (principal); Z78.0 Asymptomatic menopausal state
CPT/HCPCS: 77080

== ENCOUNTER → 2024-11-30 13:00 | Outpatient (BNV) | payer MEDICARE, SELFPAY | PROVIDERS: PCP Physician Assistant; Visit Provider Radiology Diagnostic Radiology | DX: E28.39 Other primary ovarian failure (principal) | CPT/HCPCS: 77080 ==

== ENCOUNTER 2025-02-08 09:30 | Outpatient (REF) | payer MEDICARE, SELFPAY ==
[2025-02-08 09:44] LABS: MANUAL DIFF FLAG NO
[2025-02-08 10:12] LABS: Hematocrit 45.3 % (37.0-47.0); Hemoglobin 15.4 g/dl (12.0-16.0); Imm Gran Abs Auto 0.02 X10*3/uL (0.00-0.03); Imm Gran Pct Auto 0.3 % (0.0-0.4); Lymphocytes Absolute Auto 1.9 X10*3/uL (1.2-4.9); Mean Corpuscular HGB Conc 34.0 g/dl (31.0-35.0); Mean Corpuscular Hemoglobin 30.3 pg (27.0-33.0); Mean Corpuscular Volume 89.2 fL (80.0-98.0); NRBC Abs Auto 0.000 X10*3/uL (0.0-0.012); NRBC Pct Auto 0.0 /100WBC (0.0-0.2); Platelet Count 222 X10*3/uL (160-400); Red Blood Count 5.08 X10*6/uL (4.20-5.50); White Blood Count 6.1 X10*3/uL (4.8-10.8)
[2025-02-08 10:16] LABS: INTERNATIONAL NORM RATIO 1.0 (0.9-1.1); Prothrombin Time 11.4 SEC (10.9-12.4)
--- OUTSIDE RECORDS SUMMARY | 2025-02-08 10:26 | XMS_ITS | Patient Health Record ---
Author Organization [facility] Address [address] [place] [address] Care Team Providers Care Raw Scales Operator Name Role Phone Emigdio Knox MD Primary Care Provider Johnnie Live Unavailable [phone] Allergies Allergen (clinical drug ingredient) Drug/Non Drug [...] Atenolol 100 MG TAKE 1 TABLET BY SARHA ONCE DAILY Oral; Duration: 90 Active Econazole [...] Administration Date Status Comme nts Influenza Unknown 04/21/2022 Administered COVID-19 Pfizer BioNTech Vaccine Unknown 09/22/2020 Adm inistered 1st 08/30/20 Social History Tobacco Use: Social History Observation [...] Status Risk Notes Problem Acquired hallux valgus (06931872) Hallux valgus (acquired), left foot (M20.12) Active confirmed Problem Localized, primary osteoarthritis of the ankle and/or foot (183079902) Primary osteoarthritis, right ankle and foot (M19.071) Active confirmed Problem Acquired hallux valgus (97373344) Hallux valgus (acquired), right foot (M20.11) Active confirmed Problem Pain in limb (28893687) Pain in unspecified foot (M79.673) Active confirmed Problem Raynaud's disease without gangrene (I73.00) Active confirmed Plan Of Treatment Pending Test Test Name Order Date X ray : Foot, left 2V 02/15/2015 X ray : Foot, left 2V 02/17/2018 X ray : Foot, right 2V 02/15/2015 *Liver Function Test (LFT) 02/15/2015 X ray : Foot, right 3V 02/19/2022 [id number] TENDON SHEATH/LIGAMENT 1 X ray : Ankle, right 3V 02/19/2022 Insurance Providers Payer Name Payer Address Payer Phone Subscriber Number Group Number Insured Name Patient Relationship to Insured Coverage Start Date Coverage End Date Medicare National [employer]t [employer] [address] [place] [address] [id number] Ruby Moses Self - patient is the insured [employer] [facility] [address] [place] [address] [phone] [id number] Ruby Moses Self - patient is the insured Medical (General) History Medical History History ICD Code Arthritis Back,Hip,and Knee pain Diverticulosis Headaches High blood pressure Reflux chronic sinusitis Angina Headaches/Migraines Sciatica Measles Mumps Surgical History Surgery Date(Month/Year) cholecystectomy appendectomy cardiac pacemeker 11/15/2014 zenker's diverticulum repair 01/06/2018 Hospitalization History Reason Date(Month/Year) admitted to [facility] for a week for chest miguel n 01/2015
--- OUTSIDE RECORDS SUMMARY | 2025-02-08 10:26 | XMS_ITS | Patient Health Record ---
Author Organization [facility] Address [address] [address] Care Team Providers Care Experimental Flight Test Mechanic Name Role Phone RUSTY GARY M.D. Primary Care Provider Unavaila Bonita Monroy Unavailable [phone] Allergies Allergen (clinical drug ingredient) Drug/Non Drug [...] 1 tablet Orally Once a day Active B08-Rmytge 1 MG Orally Acti ve Terazol 7 0.4 % 1 application at bedtime Vaginal Once a day; Duration: 7 day(s) 08/23/2014 Not-Taking metroNIDAZOLE 500 MG 1 tablet Orally Twice a day; Duration: 7 days Please use good rx coupon. ID# [id number], BIN: [id number], PCN: [id number], GROUP: [id number] 05/13/2022 Active MetroGel-Vaginal [...] W/U Status Risk Notes Problem Postmenopausal bleeding (61194796) Postmenopausal bleeding (N95.0) Active confirmed Problem Subacute and chronic vaginitis (N76.1) Active confirmed Plan Of Treatment Pending Test Test Name Order Date MAMMOGRAM, SCREENING 03/22/2018 MAMMOGRAM, SCREENING 03/28/2019 MAMMOGRAM, SCREENING 04/06/2020 MAMMOGRAM, SCREENING 05/12/2022 MAMMOGRAM, SCREENING 08/23/2014 Urinalysis 08/23/2014 Urinalysis 03/22/2018 [...] Mammo Screening 03/28/2019 MM Digital Mammo Screening 05/12/2022 MM Digital Mammo Screening 04/06/2020 PELVIC ULTRASOUND W/TRANSVAGINAL 019 ULTRASOUND: PELVIC W/TRANSVAGINAL 2017 Insurance Providers Payer Name Payer Address Payer Phone Subscriber Number Group Number Insured Name Patient Relationship to Insured Coverage Start Date Coverage End Date MEDICARE [address] [facility], [place] [id number] KAREN ADHIKARI Self - patient is the insured [employer] [address] [place] [address] [phone] [id number] KAREN ADHIKARI Self - patient is [...] 11/2014 Colonoscopy Zenkers Diverticulum Surgery - in [facility] 01/06/2018 Hospitalization History Reason Date(Month/Year) Diverticulitis <10 years 3 Vaginal Deliveries See Surgical Hx
--- OUTSIDE RECORDS SUMMARY | 2025-02-08 10:26 | XMS_ITS | Patient Health Record ---
Author Organization [facility] Address [address] [place] [address] Care Team Providers Care Tack Picker Name Role Phone Lisette (RETIRED) Emigdio MCKEON Primary Care Provide r Vito Vu Unavailable [phone] Allergies Allergen (clinical drug ingredient) Drug/Non Drug [...] 20 MG TAKE 1 CAPSULE BY MO [facility] TWICE A DAY for 90 Active Lisinopril 5 MG 1 tablet Orally Once a day Active amLODIPine Besylate 5 MG TAKE 1 TABLET B Y MOUTH EVERY DAY Oral for 90 Active Immunizations Vaccine Route Administration Date Status Comme nts Influenza Unknown 02/07/2020 Administered Problems Problem Type SNOMED Code ICD Code Onset Dates Problem Status W/U Status Risk Notes Problem Esophageal reflux (321409135) Esophageal reflux (K21.9) Active confirmed Problem 718714388 Encounter for screening for malignant neoplasm of colon (Z12.11) Active confirmed Problem History of polyp of colon (situation) (582852856) History of colon polyps (Z86.010) Active confirmed Problem 652926075 Hx of adenomatou s colonic polyps (Z86.010) Active confirmed Problem 11413422 Irritable bowel syndrome with both constipation and diarrhea (K58.2) Active confirmed Problem Diverticular disease of colon (631776707) Diverticular disease of colon (K57.30) Active confirmed Problem 584097985 Gastroesophageal reflux disease, unspecified whether esophagitis present (K21.9) Active confirmed Plan Of Treatment Future Test Test Name Order Date COLONOSCOPY 08/22/2014 UPPER GI ENDOSCOPY 11/02/2020 COLONOSCOPY 11/02/2020 Insurance Providers Payer Name Payer Address Payer Phone Subscriber Number Group Number Insured Name Patient Relationship to Insured Coverage Start Date Coverage End Date MEDICARE OF [place] [address] [place] [address] [id number] KAREN ADHIKARI Self - patient is the insured [employer] CLAIMS [address] [place] [address] [phone] [id number] KAREN ADHIKARI Self - patient is the insured Medical (General) History Medical History History ICD Code Denies OK,DM,CVA,Lung disease,renal dise ase ? TIA Diverticulitis-most recent [...] an 18mm balloon--bx neg for eosinophilic esophagitis---on fpc PPI's Pacemaker 2014 Colonoscopy 11/2014-1 small tubular adeno ma removed EGD 11/2014-small hiatal hernia, no esoph agitis Zenker's Diverticulum with s urgery as below with good resolution of previous dysphagia Surgical History Surgery Date(Month/Year) Appendectomy Cholecystectomy Pacemaker 2014 Zenker's Diverticulum surgery with Dr. Jone swanson, ENT in [place]
[2025-02-08 10:50] LABS: Anion Gap 10 (12-20); Blood Urea Nitrogen 18 mg/dL (9-16); Calcium 9.4 mg/dL (8.4-10.2); Carbon Dioxide 29 mmol/L (22-29); Chloride 105 mmol/L (96-108); Estimated Glomerular Filt Rate > 60; Potassium 4.3 mmol/L (3.3-5.1); Sodium 140 mmol/L (135-145)
== END 2025-02-08 09:31 | disposition home or self-care (01) ==
LOC: HO.LAB 09:30
PROVIDERS: PCP Physician Assistant; Visit Provider Student in an Organized Health Care Education/Training Program
DX: Z01.818 Encounter for other preprocedural examination (principal); Z45.018 Encounter for adjustment and management of other part of cardiac pacemaker; Z51.81 Encounter for therapeutic drug level monitoring
CPT/HCPCS: 36415; 80048; 85025; 85610

== ENCOUNTER 2025-02-16 12:48 | Day surgery (SDC) | payer MEDICARE, SELFPAY ==
--- OUTSIDE RECORDS SUMMARY | 2025-01-31 16:20 | XMS_ITS | Patient Health Record ---
Author Organization [facility] Address [address] [place] [address] Care Team Providers Care Auto Battery Builder Name Role Phone Lisette (RETIRED) Emigdio MCKEON Primary Care Provide r Vito Vu Unavailable [phone] Allergies Allergen (clinical drug ingredient) Drug/Non Drug Allergy documented on EMR Reaction Allergy Type Onset Date Status sulfacetamide Sulfacetamide Sodium diarrhea Drug Allergy Active Doxycycline (Rosacea) Unknown Drug Allergy Active Augmentin? (uncoded) diarrhea Allergy Active Reason For Referral No Information Medications Medication SIG (Take, Route, Frequency, Duration) Notes Start Date End Date Status Atenolol 100 MG 1 tablet Orally Once a day Active Vitamin B12 1 tablet Orally Once a day Active Aspir-81 81 MG 1 tablet Orally Once a day Active Motrin prn Active Vitamin D Active Omeprazole 20 MG TAKE 1 CAPSULE BY MO [facility] TWICE A DAY for 90 Active Lisinopril 5 MG 1 tablet Orally Once a day Active amLODIPine Besylate 5 MG TAKE 1 TABLET B Y MOUTH EVERY DAY Oral for 90 Active Immunizations Vaccine Route Administration Date Status Comme nts Influenza Unknown 02/07/2020 Administered Problems Problem Type SNOMED Code ICD Code Onset Dates Problem Status W/U Status Risk Notes Problem Esophageal reflux (532609137) Esophageal reflux (K21.9) Active confirmed Problem 171591215 Encounter for screening for malignant neoplasm of colon (Z12.11) Active confirmed Problem History of polyp of colon (situation) (526996588) History of colon polyps (Z86.010) Active confirmed Problem 387488269 Hx of adenomatou s colonic polyps (Z86.010) Active confirmed Problem 62125871 Irritable bowel syndrome with both constipation and diarrhea (K58.2) Active confirmed Problem Diverticular disease of colon (519975455) Diverticular disease of colon (K57.30) Active confirmed Problem 838323291 Gastroesophageal reflux disease, unspecified whether esophagitis present (K21.9) Active confirmed Plan Of Treatment Future Test Test Name Order Date COLONOSCOPY 08/22/2014 UPPER GI ENDOSCOPY 11/02/2020 COLONOSCOPY 11/02/2020 Insurance Providers Payer Name Payer Address Payer Phone Subscriber Number Group Number Insured Name Patient Relationship to Insured Coverage Start Date Coverage End Date MEDICARE [place] [address] [place] [address] [id number] KAREN ADHIKARI Self - patient is the insured [employer] CLAIMS [address] [place] [address] [id number] KAREN ADHIKARI Self - patient is the insured Medical (General) History Medical History History ICD Code Denies LA,DM,CVA,Lung disease,renal dise ase ? TIA Diverticulitis-most recent e pisodes in 04/2014 and 07/2014--CT scan showed involvement in the sigmoid and descending colon; CT scan showed a recurrence in 03/2020 treated with outpatient antibotics Neg colonscopy in 2005 except diverticul osis Neg EGD in 1998 except small HH HTN Arthritis EGD in 05/2012-small HH, no stricture--EGJ dilated with an 18mm balloon--bx neg for eosinophilic esophagitis---on prison PPI's Pacemaker 2014 Colonoscopy 11/2014-1 small tubular adeno ma removed EGD 11/2014-small hiatal hernia, no esoph agitis Zenker's Diverticulum with s urgery as below with good resolution of previous dysphagia Surgical History Surgery Date(Month/Year) Appendectomy Cholecystectomy Pacemaker 2014 Zenker's Diverticulum surgery with Dr. Jone swanson, ENT in [place]
--- OUTSIDE RECORDS SUMMARY | 2025-01-31 16:20 | XMS_ITS | Patient Health Record ---
Author Organization [facility] Address [address] [place] [address] Care Team Providers Care Bariatric Physician Name Role Phone Emigdio Knox MD Primary Care Provider Johnnie Live Unavailable [phone] Allergies Allergen (clinical drug ingredient) Drug/Non Drug Allergy documented on EMR Reaction Allergy Type Onset Date Status doxycycline Doxycycline Hyclate rash/itch Drug Allergy Active Adhesive Tape rash/itch Drug Allergy Act jyotsna Reason For Referral No Information Medications Medication SIG (Take, Route, Frequency, Duration) Notes Start Date End Date Status Physical Therapy . . . 2-3x/week; Duration: 3-4 weeks Active Physical Therapy . . . 2-3x/week; Duration: 3-4 weeks Not-Taking Night Splint AFO - L1930 as directed Active Cipro Not-Taking Vitamin D Active Vitamin B12 Active Omeprazole 20 MG TAKE ONE CAPSULE BY MOUTH EVERY DAY Oral; Duration: 90 Active Azithromycin 250 MG TAKE 2 TABLETS BY MO [facility] TODAY, THEN TAKE 1 TABLET DAILY FOR 4 DAYS Oral; Duration: 5 Not-Taking Lisinopril 20 MG 1 tablet Orally Once a day Active Econazole Nitrate 1 % 1 application to affected area Externally Once a day; Duration: 30 days 08/22/2015 Not-Taking Baby Aspirin Active Atenolol 100 MG TAKE 1 TABLET BY SARAH ONCE DAILY Oral; Duration: 90 Active Econazole Nitrate 1 % 1 application to affected area Externally Once a day; Duration: 30 days 02/15/2015 Not-Taking amLODIPine Besylate 5 MG 1 tablet Orally Once a day; Duration: 30 day(s) Active Custom Orthotics as directed N ot-Taking Atorvastatin Calcium 40 MG TAKE 1 TABLET BY MOUTH DAILY AT BEDTIME Oral; Duration: 30 Not-Taking Immunizations Vaccine Route Administration Date [...] Status Risk Notes Problem Acquired hallux valgus (05041764) Hallux valgus (acquired), left foot (M20.12) Active confirmed Problem Localized, primary osteoarthritis of the ankle and/or foot (492669976) Primary osteoarthritis, right ankle and foot (M19.071) Active confirmed Problem Acquired hallux valgus (82983234) Hallux valgus (acquired), right foot (M20.11) Active confirmed Problem Pain in limb (47560523) Pain in unspecified foot (M79.673) Active confirmed Problem Raynaud's disease (924842180) Raynaud's disease without gangrene (I73.00) Active confirmed Plan Of Treatment Pending Test Test Name Order Date X ray : Foot, left 2V 02/15/2015 X ray : Foot, left 2V 02/17/2018 X ray : Foot, right 2V 02/15/2015 *Liver Function Test (LFT) 02/15/2015 X ray : Foot, right 3V 02/19/2022 [id number] TENDON SHEATH/LIGAMENT 1 X ray : Ankle, right 3V 02/19/2022 Insurance Providers Payer Name Payer Address Payer Phone Subscriber Number Group Number Insured Name Patient Relationship to Insured Coverage Start Date Coverage End Date Medicare National Govt Svcs Inc [address] [place] [address] [id number] Ruby Moses Self - patient is the insured [employer] [facility] [address] [place] [address] [phone] [id number] Ruby Moses Self - patient is the insured Medical (General) History Medical History History ICD Code Arthritis Back,Hip,and Knee pain Diverticulosis Headaches High blood pressure Reflux chronic sinusitis Angina Headaches/Migraines Sciatica Measles Mumps Surgical History Surgery Date(Month/Year) cholecystectomy appendectomy cardiac pacemeker 11/15/2014 zenker's diverticulum repair 01/06/2018 Hospitalization History Reason Date(Month/Year) admitted to [facility] [place] for a week for chest miguel n 01/2015
--- OUTSIDE RECORDS SUMMARY | 2025-01-31 16:20 | XMS_ITS | Patient Health Record ---
Author Organization [facility] Address [address] [address] Care Team Providers Care Community Relations Manager Name Role Phone RUSTY GARY M.D. Primary Care Provider Unavaila Bonita Monroy Unavailable [phone] Allergies Allergen (clinical drug ingredient) Drug/Non Drug Allergy documented on EMR Reaction Allergy Type Onset Date Status Doxycycline Calcium Unknown Drug Allergy Active Reason For Referral No Information Medications Medication SIG (Take, Route, Frequency, Duration) Notes Start Date End Date Status Vitamin D 2000 UNIT 1 tablet Orally Once a day Active Aspir-81 81 MG 1 tablet Orally Once a day Active Omeprazole 20 MG 1 capsule Orally Once a day Active Terazol 7 0.4 % 1 applicatorful at bedtime Vaginal EVERY NIGHT X 7 04/13/2020 Not-Taking miSOPROStol 200 MCG 2 Orally night before procedure; Duration: 1 days 04/18/2020 Not-Taking amLODIPine Besylate 5 MG TAKE 1 TABLET BY MOUTH EVERY DAY Oral; Duration: 90 Active Lisinopril 20 MG 1 tablet Orally Once a day Active Atenolol 100 MG 1 tablet Orally Once a day Active Z14-Azmmdv 1 MG Orally Acti ve Terazol 7 0.4 % 1 application at bedtime Vaginal Once a day; Duration: 7 day(s) 08/23/2014 Not-Taking metroNIDAZOLE 500 MG 1 tablet Orally Twice a day; Duration: 7 days Please use good rx coupon. ID# [id number], BIN: [id number], PCN: [id number], GROUP: [id number] 05/13/2022 Active MetroGel-Vaginal 0.75 % 1 application at bedtime Vaginal Once a day; Duration: 5 day(s) 05/12/2022 Active Social History Tobacco Use: Social History Observation Description Date Details (start date - stop date) Never Smoker NA - NA Tobacco Use/Smoking Question Answer Notes Are you a nonsmoker Alcohol Screen (Audit-C) Question Answer Notes Did you have a drink contain ing alcohol in the past year? Yes How often did you have a dri nk containing alcohol in the past year? Monthly or less (1 point) How many drinks did you have on a typical day when you were drinking in the past year? 1 or 2 drinks (0 point) Points 1 Interpretation Negative Sexual History Question Answer Notes Had sex in the past 12 months (vaginal, oral, or anal)? No Problems Problem Type SNOMED Code ICD Code Onset Dates Problem Status W/U Status Risk Notes Problem Postmenopausal bleeding (14548575) Postmenopausal bleeding (N95.0) Active confirmed Problem Subacute and chronic vaginitis (N76.1) Active confirmed Plan Of Treatment Pending Test Test Name Order Date MAMMOGRAM, SCREENING 03/22/2018 MAMMOGRAM, SCREENING 03/28/2019 MAMMOGRAM, SCREENING 05/12/2022 MAMMOGRAM, SCREENING 04/06/2020 MAMMOGRAM, SCREENING 08/23/2014 Urinalysis 08/23/2014 Urinalysis 03/22/2018 Breast Biopsy, Stereo 05/05/2016 Ultrasound : Pelvic 02/19/2016 Ultrasound : Pelvic Non/OB 01/07/2017 Ultrasound : Sono Hystergram 04/06/2020 ENDOMETRIAL BX 04/06/2020 CANC ANT-125 03/28/2019 CANC ANT-125 03/31/2018 CANC ANT-125 03/11/2016 CEA MONOCLONAL 03/11/2016 COMPLETE URINALYSIS 04/08/2018 THIN PREP,HPV,ADALBERTO IF HPV+ (>29YR)(DIAG) 03/28/2019 URINE CULTURE 04/08/2018 URINE CULTURE 05/03/2018 BONE DENSITY 03/02/2017 MM Digital Mammo Screening 03/22/2018 MM Digital Mammo Screening 02/19/2016 MM Digital Mammo Screening 03/28/2019 MM Digital Mammo Screening 04/06/2020 MM Digital Mammo Screening 05/12/2022 PELVIC ULTRASOUND W/TRANSVAGINAL 019 ULTRASOUND: PELVIC W/TRANSVAGINAL 2017 Insurance Providers Payer Name Payer Address Payer Phone Subscriber Number Group Number Insured Name Patient Relationship to Insured Coverage Start Date Coverage End Date MEDICARE [address] [facility], [place] [id number] [phone] [id number] KAREN ADHIKARI Self - patient is the insured [employer] [address] [place] [address] [phone] [id number] KAREN ADHIKARI Self - patient is the insured Medical (General) History Medical History History ICD Code Bursitis of hips Prolapsed Spinal Discs Mammographic microcalcification found on diagnostic imaging of breast R92.0 Unspecified ovarian cyst, right side N83 .201 Left lower quadrant pain R10.32 Essential (primary) hypertension I10 Diverticulitis of intestine, part unspecified, without perforation or abscess without bleeding K57.92 Unspecified osteoarthritis, unspecified site M19.90 Postmenopausal bleeding N95.0 Pelvic and perineal pain R10.2 Cyst of kidney, acquired N28.1 Other ovarian cyst, right side N83.291 Unspecified ovarian cyst, left side N83. 202 Surgical History Surgery Date(Month/Year) Appendectomy Cholecystectomy Left Breast Biopsy, Benign Pacemaker 11/2014 Colonoscopy Zenkers Diverticulum Surgery - in [facility] 01/06/2018 Hospitalization History Reason Date(Month/Year) Diverticulitis <10 years 3 Vaginal Deliveries See Surgical Hx
[2025-02-16] VITALS (8 sets, daily range): BP systolic 145–170; BP diastolic 78–95; PULSE 60–79; RESP 16–18; TEMP 36.3–36.8; O2SAT 95–97; BMI 34.9
--- NOTE | 2025-02-16 16:49 | P.CONAN_ITS ---
HPI - Anesthesia Eval Consult details Narrative: 69 yo F presenting for pacemaker generator change [facility] Active Problems Active Problems: All Active Problems Obstructive sleep apnea (Acute) Post-menopausal (Acute) Malodorous urine (Acute) Elevated liver enzymes (Acute) Hyperlipemia (Acute) Cervical radicular pain (Acute) Nonsustained ventricular tachycardia (Acute) Lightheadedness (Acute) Renal carcinoma (Acute) HTN (hypertension) (Acute) Cardiac pacemaker in situ (Acute) Past Medical History Medical History (Updated 12/21/24 @ 08:53 by TIANA Jacobs) Osteopenia Obstructive sleep apnea Hyperlipemia Hiatal hernia GERD (gastroesophageal reflux disease) History of diverticulitis Arthritis HTN (hypertension) Cardiac pacemaker in situ Complete heart block Family History Family History Father No problems noted. Mother No problems noted. Family history of problems with anesthesia: No Surgical History Surgical History (Updated 11/18/24 @ 10:16 by Sienna Beatty) History of kidney surgery History of excision of Zenker's diverticulum Hx of appendectomy Hx of cholecystectomy Hx of colonoscopy (~12/19/20) Hx of blepharoplasty History of permanent cardiac pacemaker placement Hx of cardiac cath History of esophagogastroduodenoscopy (EGD) History of Problems with Anesthesia: No Social History Social History Are you a primary home health care social worker to a significant other at home: No Do you presently have visiting nurse or other home services: No Patient Tobacco Use Status: Never used Tobacco Second Hand Smoke Exposure: No Use of substances other than those prescribed or required for medical reasons: No Have you been hit, kicked, punched, or otherwise hurt by someone within the past year? If so, by whom?: No Are you DNR?: No Advance Directives: Yes Advance Directives Information Provided: No Advance Directives on File: Yes Advance Directives Date on File: 03/14/20 Patient : No : No Poor oral hygiene: No Meds Allergies Allergy/AdvReac Type Severity Reaction Status Date / Time adhesive tape (Adhesive Tape) Allergy Intermediate RASH/BLISTE Verified 11/21/24 07:58 RS doxycycline (Doxycycline) Allergy Intermediate RASH/ITCH Verified 11/21/24 07:58 Statins Support Allergy Intermediate leg Uncoded 11/21/24 07:58 cramping Active Medications: Current Medications Fentanyl (Fentanyl Citrate/Pf 100 Mcg/2 Ml Vial) 25 mcg IVPUSH Q5M PRN PRN Reason: Pain, Moderate to Severe (Pain Scale 4-10) Stop: 02/16/25 22:48 Naloxone HCl (Naloxone Hcl 0.4 Mg/Ml Vial) 0.04 mg IVPUSH Q5M PRN PRN Reason: Excessive sedation or RR < 8 Ondansetron HCl (Ondansetron Hcl 4 Mg/2 Ml Vial) 4 mg IVPUSH ONCE PRN PRN Reason: Nausea and Vomiting Stop: 02/16/25 22:48 Home Medications ?Medication ?Instructions ?Recorded ?Confirmed ?Last Taken ?Type aspirin 81 mg tablet,delayed 81 mg PO DAILY 09/04/20 0 02/16/25 12/12/20 14:00 History release (Adult Low Dose Aspirin) cholecalciferol (vitamin D3) 25 25 mcg PO DAILY 02/16/25 Unknown History mcg (1,000 unit) capsule lisinopril 20 mg tablet 20 mg PO DAILY 09/04/2002/0612/19/20 06:30 History omeprazole 20 mg capsule,delayed 20 mg PO DAILY 02/16/25 Unknown History release vitamin B complex (B 1 tab PO DAILY 09/04/2002/06 Unknown History Complex-Vitamin B12 tablet) Exam Exam Date and Time: 02/16/25 1650 Height,Weight and Vital Signs: Height 5 ft 5.5 in Weight 96.615 kg Last Vital Signs Temp 98.3 F 02/16/25 13:26 Pulse 79 02/16/25 13:26 Resp 16 02/16/25 13:26 BP 157/95 H 02/16/25 13:26 Pulse Ox 96 02/16/25 13:26 O2 Del Method Room Air 02/16/25 13:26 Airway Mallampati Class: II TM Dist: <=3cm Neck ROM: Full Loose/Missing/Broken Teeth: Yes (several missing and chipped teeth) Heart: S1S2 Lungs: CTAB Assessment and Plan Assessment Anesthesia Assessment: Anesthesia Plan Discussed and Chart Reviewed Final Anesthetic Review Family History of Problems with Anesthesia: No History of Problems with Anesthesia: No NPO: Yes ASA Class: III Final Preanesthetic Review: No Changes in Pt Med Stat, Meds/Allgs Chart Reviewed, Consent Obtained/Reviewed and Anes Risks/Benef Reviewed Patient Risk: Intermediate Procedure Risk: Intermediate Anesthetic Plan Anesthetic Plan: MAC: and Agree w/ Assess. and Plan Disposition: Standard PACU
--- NOTE | 2025-03-04 10:21 | P.OP_ITS ---
Operative Note Operative Note Date of Service: 02/16/25 Narrative: Indication: Dual chamber pacemaker generator MAIA Complete heart block Summary: 1. Generator replacement of Medtronic dual chamber pacemaker (CPT 83827) Narrative: Patient presented to the EP lab in a fasting, nonsedated state after written informed consent was verified. The procedure was performed under sedation provided by anesthesia. 2g IV Ancef was administered prior to skin incision. The patient was prepped and draped in the usual sterile manner. A 1-inch incision was made over the existing pacemaker generator. The pacemaker pocket was exposed using a combination of electrocautery and blunt dissection. The existing generator was removed from the pocket. The new pacemaker generator was brought to the field. The leads were detached from the existing pacemaker and promptly inserted into the respective ports of the new generator. The leads were secured in the header using the provided torque wrench. The pocket was flushed with an antibiotic irrigant. Any bleeders within the pocket were controlled with electrocautery. The leads were wrapped underneath the new generator and the pacemaker was placed back within the existing pocket. The g enerator was sutured to the underlying pectoralis muscle with 0-Ethibond suture. A TYRX envelope was placed within the pocket. Pacemaker testing showed lead parameters to be within the desirable range. The pocket was closed in three layers using 2-0 followed by 4-0 V-Loc. Dermabond was applied over the incision site. Gauze and tegaderm dressing were then placed over the incision site followed by a pressure dressing. Patient was then transported back to recovery in a stable condition. Recommendations: 1. Keep chest incision site dry for 7 days. 2. Remove the gauze and Tegaderm dressing after 3 days. 3. Follow up in clinic in 1-2 weeks for incision site check. 4. Discharge home after 90 mins if patient remains stable.
== END 2025-02-16 19:19 | disposition home or self-care (01) ==
PROVIDERS: PCP Physician Assistant; Visit Provider Student in an Organized Health Care Education/Training Program
PROC: (CPT 33228; principal; 2025-02-16 16:00)
DX: Z45.018 Encounter for adjustment and management of other part of cardiac pacemaker (principal); I44.2 Atrioventricular block, complete; I10 Essential (primary) hypertension; E78.5 Hyperlipidemia, unspecified; G47.33 Obstructive sleep apnea (adult) (pediatric); L23.1 Allergic contact dermatitis due to adhesives; Z88.1 Allergy status to other antibiotic agents; Z88.8 Allergy status to other drugs, medicaments and biological substances; Z98.890 Other specified postprocedural states
CPT/HCPCS: 33228; C1785; C1889; J0690; J2003; J2704; J3374

== ENCOUNTER 2025-02-24 08:29 | Outpatient (AMB) | payer MEDICARE, SELFPAY ==
--- NOTE | 2025-02-24 08:40 | MHC.OFFVIS ---
Vital Signs 02/24/25 08:41 Height 5 ft 5.5 in Weight 210 lb 12.191 oz BMI 34.5 BP 120/64 Blood Pressure Location Lt brachial Position Sitting Pulse 82 Pulse Source Pulse Oximeter Intake Visit Reasons: f/u after pacer wound check Oceanology Teacher Required: No Accompanied by: Self / Same As Patient Allergies adhesive tape (Adhesive Tape) Allergy (Intermediate, Verified 11/21/24 07:58) RASH/BLISTERS doxycycline (Doxycycline) Allergy (Intermediate, Verified 11/21/24 07:58) RASH/ITCH Statins Support Allergy (Intermediate, Uncoded 11/21/24 07:58) leg cramping Medication List - Last Reconciled 02/24/25 by Charu Bass, CUSTOMER RESPONSE REPRESENTATIVE-C amlodipine 5 mg PO DAILY aspirin (Adult Low Dose Aspirin) 81 mg PO DAILY atenolol 100 mg PO DAILY cholecalciferol (vitamin D3) 25 mcg PO DAILY lisinopril 20 mg PO DAILY omeprazole 20 mg PO DAILY vitamin B complex (B Complex-Vitamin B12 tablet) 1 tab PO DAILY HPI HPI f/u after pacer wound check: Details: Ruby is a 69-year-old female with past medical history of hypertension, GERD, complete heart block, pacemaker who recently underwent generator change and now presents for follow-up. Today she reports that she had skin irritation and itching from the Tegaderm that was over her wound site. She remove that a few days ago and still has itching from the skin glue near the actual incision. She has been avoiding itching the area and has put Benadryl ointment to the skin surrounding the area. Otherwise feels well with no concerning symptoms. She reports good activity tolerance. Taking meds as directed. Has remote monitoring set up through her cell phone. [facility] Medical History Osteopenia Obstructive sleep apnea Hyperlipemia Hiatal hernia GERD (gastroesophageal reflux disease) History of diverticulitis Arthritis HTN (hypertension) Cardiac pacemaker in situ Complete heart block Surgical History History of kidney surgery History of excision of Zenker's diverticulum Hx of appendectomy Hx of cholecystectomy Hx of colonoscopy (~12/19/20) Hx of blepharoplasty History of permanent cardiac pacemaker placement Hx of cardiac cath History of esophagogastroduodenoscopy (EGD) Family History Father No problems noted. Mother No problems noted. Social History Are you a primary youth care worker to a significant other at home: No Do you presently have visiting nurse or other home services: No Patient Tobacco Use Status: Never used Tobacco Second Hand Smoke Exposure: No Advance Directives Date on File: 03/14/20 Review of Systems Const All systems reviewed & are unremarkable except as noted in HPI and below Denies chills, Denies fatigue, Denies fever(s), Denies frequent falls, Denies weakness, Denies weight gain and Denies weight loss ENT Denies dizziness Card Details: Itching from glue around pacer site Denies chest pain, Denies leg edema, Denies lightheadedness, Denies palpitations, Denies dyspnea and Denies dyspnea on exertion Resp Denies cough, Denies dyspnea and Denies dyspnea on exertion GI Denies hematochezia Musc Denies abnormal gait, Denies muscle weakness, Denies numbness, Denies radiating pain into limb and Denies tingling Neuro Denies abnormal gait, Denies dizziness, Denies frequent falls, Denies numbness, Denies tingling and Denies weakness Endo Denies fatigue and Denies palpitations Physical Exam Vital Signs: Last Vital Signs Pulse 82 02/24/25 08:41 BP 120/64 02/24/25 08:41 BMI result Body Mass Index 34.5 Const General: cooperative, comfortable, no acute distress, alert and awake Nutritional Appearance: obese Orientation/consciousness: patient oriented x3 Resp Effort & Inspection: normal respiratory effort Auscultation: clear to auscultation bilaterally Cardio Other: Pacemaker site intact with skin glue over site. Mild skin irritation noted along edges of skin glue. No blisters or drainage noted. Jugular venous distension: no JVD Palpation: normal PMI Rate: regular rate Rhythm: regular rhythm Heart sounds: S1 normal heart sound present and S2 normal heart sound present Neuro General: patient oriented x3 Extrem General: Yes no clubbing, cyanosis or edema Psych Appearance: grossly normal Affect: Anxious affect present Office Procedures Cardiac Device Check Cardiac Device Check Details: [email or web address] dual-chamber pacemaker interrogation today, device implant 02/16/2025, battery 13.9 years, atrial threshold 0.5 volts at 0.4 milliseconds, RV threshold 0.375 volts at 0.4 milliseconds, DDDR mode, low rate 60, no alerts, no AF, V paced 100%, a paced 50.9%. [id number] Cardiac Device Check, pacemaker dual lead Procedure code (CPT) selection complete Assessment & Plan Assessment & Plan (1) Visit for wound check: Code(s): Z51.89 - Encounter for other specified aftercare Category: Medical Plan: Pacemaker generator change 02/16/2025, left upper chest. Actual incision fully intact with no signs of infection. She does have evidence of skin irritation in the surrounding tissue which seems from the skin glue. Reviewed site care with her including no scratching of the area. Keep area clean and dry. She was given bacitracin ointment to apply to the outer edges of the skin glue area, to soften skin glue and reduce chance of infection. Signs of infection discussed with her. Will arrange for wound recheck in the office in 4-5 days, sooner if needed. (2) Cardiac pacemaker in situ: Comment: Dual-chamber Medtronic cardiac pacemaker, November 2014, generator change 02/16/2025 Code(s): Z95.0 - Presence of cardiac pacemaker Category: Medical Plan: Medtronic dual-chamber pacemaker in place, generator change 02/16/2025. Interrogation today shows device is functioning normally. Battery life currently 13.9 years. Will arrange for office interrogation in 6 months. Remote monitoring in use. (3) HTN (hypertension): Code(s): I10 - Essential (primary) hypertension Category: Medical Plan: Blood pressure goal less than 130/80. Well controlled at this time. Labs 02/08/2025 showed potassium 4.3, creatinine 0.76. Continue amlodipine, atenolol, lisinopril. Plan Time spent on chart review, documentation, interview assessment Coding Level of Care Code Est Pt Level 4 (50664) Complex EM visit Add On G2211 Diagnoses Visit for wound check Z51.89 Cardiac pacemaker in situ Z95.0 HTN (hypertension) I10 CPT Codes Cardiac Device Check - Cardiac Device 2: [id number]-XG Cardiac Device Check, pacemaker dual lead ([id number]) Time Spent (min) 36
[2025-02-24 08:41] VITALS: BP 120/64; PULSE 82; BMI 34.5
== END 2025-02-24 09:23 | disposition home or self-care (01) ==
LOC: HO.HCS 08:29
PROVIDERS: PCP Physician Assistant; Visit Provider Nurse Practitioner Family
DX: I10 Essential (primary) hypertension (principal); Z51.89 Encounter for other specified aftercare; Z95.0 Presence of cardiac pacemaker
CPT/HCPCS: 93280; 99214; G2211

== ENCOUNTER → 2025-02-24 08:29 | Outpatient (BNVA) | payer MEDICARE, SELFPAY | PROVIDERS: PCP Physician Assistant; Visit Provider Nurse Practitioner Family | DX: Z48.812 Encounter for surgical aftercare following surgery on the circulatory system (principal); Z45.018 Encounter for adjustment and management of other part of cardiac pacemaker; I10 Essential (primary) hypertension | CPT/HCPCS: 93280; 99212 ==

== ENCOUNTER 2025-03-15 08:47 | Outpatient (AMB) | payer MEDICARE, SELFPAY ==
--- NOTE | 2025-03-15 08:44 | A.OFFPC_ITS ---
Vital Signs 03/15/25 08:51 03/15/25 09:29 Height 5 ft 5.5 in Weight 96.615 kg BMI 34.9 BP 140/90 H 134/84 Blood Pressure Location Lt brachial Position Sitting Respiration 16 Pulse 71 Pulse Source Pulse Oximeter Temp 96.8 F Temp Source Temporal Artery Scan Pulse Oximetry (%) 97 Oxygen Delivery Method Room Air Intake Visit Reasons: Routine F/U Marriage And Family Teacher Required: No Accompanied by: Self / Same As Patient Allergies adhesive tape (Adhesive Tape) Allergy (Intermediate, Verified 03/15/25 08:44) RASH/BLISTERS doxycycline (Doxycycline) Allergy (Intermediate, Verified 03/15/25 08:44) RASH/ITCH Statins Support Allergy (Intermediate, Uncoded 11/21/24 07:58) leg cramping Tobacco use date assessed: 03/15/25 Fall risk assessment: 1 Fall in past year Last assessed Fall Risk: 03/15/25 Dental Screening Dental Screen Date: 03/15/25 Did you have a dental visit in the last 12 months?: Yes Did you have a dental problem in the last 6 months where you did not have access to dental care?: No Was dental information given to patient?: Patient has dentist HPI HPI Comments History of Present Illness Details 69-year-old female with history of hyper tension, complete heart block s/p pacemaker, osteoarthritis, GERD, renal cell carcinoma presents to the office today for management of chronic conditions. Last seen 11/2024 Hypertension-managed with atenolol 100 mg daily, amlodipine 5 mg, lisinopril 20 mg daily. Blood pressure in the office 140/90, recheck 134/84 Renal cell carcinoma-diagnosed 03/26. Initial therapy cryotherapy with follow- up CT 03/27 showing bilateral small complex cyst. 10/2020 renal ultrasound stable bilateral renal cysts. Renal function has been stable. No longer following with Dr. Jerez in Urology for imaging surveillance Complete heart block-s/p pacemaker. Follows with Dr. Lacy in Cardiology. No near-syncope, syncope, shortness of breath, chest pain. Recent device check Obstructive sleep apnea-compliant with CPAP HLD- last ldl 126. not on statin due to myalgia Concerns: allergies Health maintenance: Mammo-04/2024, no malignancy, 1 year follow-up Overdue for DEXA ROS: General: No fevers, malaise, unintentional weight loss HEENT: No blurred vision, diplopia. No sore throat, nasal congestion, rhinorrhea, sinus pain, ear pain Cardiovascular: No chest pain, palpitations, or leg edema Respiratory: No shortness of breath, wheezing, cough GI: No abdominal pain, nausea, vomiting, diarrhea, constipation, melena, hematochezia : No dysuria, hematuria, increased urinary frequency, decreased urinary output MSK: See HPI Neuro: See HPI Skin: No rashes or lesions EXAM: Constitutional - Awake and Alert, No apparent distress Eyes - PERRL Cardiovascular - S1S2, RRR, No edema Respiratory - Normal lung expansion, Normal respiratory effort, No respiratory distress, CTA bilaterally Extremities - no calf tenderness bilaterally, no swelling MSK - midline tenderness to palpation cervical and lumbar spine Skin - Warm/Dry Neurological - Alert & oriented x3, 5/5 strength BUE BLE, sensation intact Psychological - Appropriate affect PFSH Medical History Osteopenia Obstructive sleep apnea Hyperlipemia Hiatal hernia GERD (gastroesophageal reflux disease) History of diverticulitis Arthritis HTN (hypertension) Cardiac pacemaker in situ Complete heart block Surgical History History of kidney surgery History of excision of Zenker's diverticulum Hx of appendectomy Hx of cholecystectomy Hx of colonoscopy (~12/19/20) Hx of blepharoplasty History of permanent cardiac pacemaker placement Hx of cardiac cath History of esophagogastroduodenoscopy (EGD) Family History Father No problems noted. Mother No problems noted. Social History Housing: House Are you a primary critical care cns to a significant other at home: No Do you presently have visiting nurse or other home services: No Patient Tobacco Use Status: Never used Tobacco e-Cigarette/Vaping Use: Never Used Second Hand Smoke Exposure: No Advance Directives Date on File: 03/14/20 service: No Current occupational status: retired Questionnaire Thrive Questionnaire Date Thrive assessed: 11/21/24 AUDIT C Alcohol Use Questionnaire (AUDIT-C) 1. How often do you have a drink containing alcohol?: Never 3. How often do you have six or more drinks on one occasion?: Never Total Score: 0 GHADA-7 AMB Questionnaire GHADA-7 Date GHADA - 7 assessed: 11/21/24 Source: Developed by Drs. Vito Ortiz, Preethi Broussard, Jean Marie Suarez and colleagues, with an educational sundar from [employer]. Physical exam (Primary Care) Vital Signs: Last Vital Signs Temp 96.8 F 03/15/25 08:51 Pulse 71 03/15/25 08:51 Resp 16 03/15/25 08:51 BP 140/90 H 03/15/25 08:51 Pulse Ox 97 03/15/25 08:51 Oxygen Delivery Method Room Air 03/15/25 08:51 BMI result Body Mass Index 34.9 Tobacco/Smoking Status: Tobacco use Status Tobacco use date assessed 03/15/25 03/15/25 08:47 Patient Tobacco Use Status Never used Tobacco 03/15/25 08:46 e-Cigarette/Vaping Use Never Used 03/15/25 08:54 Thrive Assessment: Date of Thrive Assessment Date Thrive assessed 11/21/24 03/15/25 08:46 Coding Level of Care Code Est Pt Level 4 (16204) Complex EM visit Add On G2211 Diagnoses Obstructive sleep apnea G47.33 HTN (hypertension) I10 Renal carcinoma C64.9 Hyperlipemia E78.5 Malodorous urine R82.90 Assessment & Plan Assessment & Plan (1) Obstructive sleep apnea: Code(s): G47.33 - Obstructive sleep apnea (adult) (pediatric) Category: Medical Plan: Continue CPAP. Weight loss effort (2) HTN (hypertension): Code(s): I10 - Essential (primary) hypertension Category: Medical Plan: Controlled. Continue amlodipine, atenolol, lisinopril. Low-sodium diet (3) Renal carcinoma: Comment: Right cryotherapy October 2018 Code(s): C64.9 - Malignant neoplasm of unspecified kidney, except renal pelvis Category: Medical Plan: Urology report reviewed, in remission. Continue following for surveillance prn (4) Hyperlipemia: Code(s): E78.5 - Hyperlipidemia, unspecified Category: Medical Plan: Lipid panel ordered. Recommend diet low in saturated fat and highly processed oils. We will consider adding statin pending results of studies (5) Malodorous urine: Code(s): R82.90 - Unspecified abnormal findings in urine Category: Medical Plan: Drink more water. Check UA, vit b12 Plan Follow-up in 4 months. Labs to be completed following visit today Allergy recommendations as above Labs as ordered. Ascvd RISK SCORE to be calculated Orders: Orders Vitamin B12 Today C64.9 - Malignant neoplasm of unspecified kidney, except renal pelvis, E78.5 - Hyperlipidemia, unspecified, I10 - Essential (primary) hypertension, R82.90 - Unspecified abnormal findings in urine Lipid Panel Today C64.9 - Malignant neoplasm of unspecified kidney, except renal pelvis, E78.5 - Hyperlipidemia, unspecified, I10 - Essential (primary) hypertension, R82.90 - Unspecified abnormal findings in urine UA CC w/rflx Micro + Cult Today C64.9 - Malignant neoplasm of unspecified kidney, except renal pelvis, E78.5 - Hyperlipidemia, unspecified, I10 - Essential (primary) hypertension, R82.90 - Unspecified abnormal findings in urine Bacterial Vaginosis Panel Today C64.9 - Malignant neoplasm of unspecified kidney, except renal pelvis, E78.5 - Hyperlipidemia, unspecified, I10 - Essential (primary) hypertension, R82.90 - Unspecified abnormal findings in urine Patient Instructions: Continue flonase Get brennan. No medications with D at the end Hydrosone cortisone drops for ears
[2025-03-15 08:51] VITALS: BP 140/90; PULSE 71; RESP 16; TEMP 36; O2SAT 97; BMI 34.9
[2025-03-15 09:29] VITALS: BP 134/84
== END 2025-03-15 09:28 | disposition home or self-care (01) ==
PROVIDERS: PCP Physician Assistant; Visit Provider Physician Assistant
DX: G47.33 Obstructive sleep apnea (adult) (pediatric) (principal); I10 Essential (primary) hypertension; C64.9 Malignant neoplasm of unspecified kidney, except renal pelvis; E78.5 Hyperlipidemia, unspecified; R82.90 Unspecified abnormal findings in urine

== ENCOUNTER 2025-03-15 08:47 | Outpatient (REF) | payer MEDICARE, SELFPAY ==
[2025-03-15 11:01] LABS: Appearance Urine Clear; Glucose Urine UA Negative (Negative); PH 6.0 (5.0-9.0); Specific Gravity - Urine 1.025 (1.005-1.025); UMIC TRIGGER UACC YES
[2025-03-15 11:27] LABS: UACC Culture Trigger YES
[2025-03-15 11:32] LABS: Cholesterol 189 mg/dL (<200); HDL Cholesterol 39 mg/dL (>40); Triglycerides 139 mg/dL (<150)
[2025-03-15 12:04] LABS: Vitamin B12 1157 pg/mL (200-900)
== END 2025-03-15 08:48 | disposition home or self-care (01) ==
LOC: HO.LAB 08:47
PROVIDERS: PCP Physician Assistant; Visit Provider Physician Assistant
DX: R82.90 Unspecified abnormal findings in urine (principal); C64.9 Malignant neoplasm of unspecified kidney, except renal pelvis; E78.5 Hyperlipidemia, unspecified; I10 Essential (primary) hypertension; G47.33 Obstructive sleep apnea (adult) (pediatric)
CPT/HCPCS: 36415; 80061; 81001; 81003; 82607; 87086; 99212

== ENCOUNTER 2025-03-16 14:47 | Outpatient (REF) | payer MEDICARE, SELFPAY ==
[2025-03-17 03:32] LABS: Bacterial Vaginosis PCR NEGATIVE (Negative); Candida Group PCR NOT DETECTED (Not Detect); Candida glab krusei PCR NOT DETECTED (Not Detect); Trichomonas vaginalis PCR NOT DETECTED (Not Detect)
== END 2025-03-16 14:48 | disposition home or self-care (01) ==
LOC: HO.LNP 14:47
PROVIDERS: Visit Provider Physician Assistant
DX: Z20.2 Contact with and (suspected) exposure to infections with a predominantly sexual mode of transmission (principal); C64.9 Malignant neoplasm of unspecified kidney, except renal pelvis; I10 Essential (primary) hypertension; E78.5 Hyperlipidemia, unspecified; R82.90 Unspecified abnormal findings in urine
CPT/HCPCS: 81515

== ENCOUNTER → 2025-03-27 23:59 | Outpatient (BNV) | payer MEDICARE, SELFPAY ==
--- NOTE | 2025-03-29 16:14 | A.OFFVIS_ITS ---
Intake Visit Reasons: Remote device check- Medtronic Allergies adhesive tape (Adhesive Tape) Allergy (Intermediate, Verified 03/15/25 08:44) RASH/BLISTERS doxycycline (Doxycycline) Allergy (Intermediate, Verified 03/15/25 08:44) RASH/ITCH Statins Support Allergy (Intermediate, Uncoded 11/21/24 07:58) leg cramping PFSH Medical History Osteopenia Obstructive sleep apnea Hyperlipemia Hiatal hernia GERD (gastroesophageal reflux disease) History of diverticulitis Arthritis HTN (hypertension) Cardiac pacemaker in situ Complete heart block Surgical History History of kidney surgery History of excision of Zenker's diverticulum Hx of appendectomy Hx of cholecystectomy Hx of colonoscopy (~12/19/20) Hx of blepharoplasty History of permanent cardiac pacemaker placement Hx of cardiac cath History of esophagogastroduodenoscopy (EGD) Family History Father No problems noted. Mother No problems noted. Social History Housing: House Are you a primary direct support professional caregiver to a significant other at home: No Do you presently have visiting nurse or other home services: No Patient Tobacco Use Status: Never used Tobacco e-Cigarette/Vaping Use: Never Used Second Hand Smoke Exposure: No Advance Directives Date on File: 03/14/20 service: No Current occupational status: retired Office Procedures Cardiac Device Check Cardiac Device Check Details: Remote pacemaker report generated 03/27/2025. No arrhythmias noted. Pacemaker function is adequate. Patient ventricularly pacer dependent. Battery life is excellent [id number] Cardiac Device Interrogation, pacemaker Procedure code (CPT) selection complete Assessment & Plan Assessment & Plan (1) Cardiac pacemaker in situ: Comment: Dual-chamber Medtronic cardiac pacemaker, November 2014, generator change 02/16/2025 Code(s): Z95.0 - Presence of cardiac pacemaker Category: Medical Plan: See above Coding Level of Care Code Procedure Only Diagnoses Cardiac pacemaker in situ Z95.0 CPT Codes Cardiac Device Check - Cardiac Device 12: [id number] Cardiac Device Interrogation, pacemaker ([id number])
== END ==
PROVIDERS: PCP Physician Assistant; Visit Provider Internal Medicine Cardiovascular Disease
DX: Z45.018 Encounter for adjustment and management of other part of cardiac pacemaker (principal)
CPT/HCPCS: 93294